=== PATIENT | male | born 1945 | race Caucasian/White ===

== ENCOUNTER 2017-03-01 22:05 | Inpatient (IN) | payer MEDICARE ==
[2017-03-02 01:34] LABS: Appearance,Urine Clear (Clear); Bilirubin,Urine Negative (Negative); Blood,Urine Negative (Negative); Color,Urine Yellow; Glucose,Urine (UA) Negative (Negative); Ketones,Urine 1+ (Negative); Leukocyte Esterase,Urine Negative (Negative); Nitrite,Urine Negative (Negative); PH, Urine 5.5 (5.0-8.0); Protein,Urine Trace (Negative); Specific Gravity,Urine 1.022 (1.001-1.035); Urobilinogen,Urine <2.0 mg/dL (<2.0)
[2017-03-02] MEDS ORDERED: SODIUM CHLORIDE 0.9% 500 ML IV STA (01:54)
[2017-03-02] MEDS ORDERED: HYDROmorphone 1 MG/ML 1 ML SYRINGE IVP STA ×2 (01:54→04:49)
[2017-03-02 02:33] LABS: Basophils % (A) 0 %; Eosinophils # (A) 0.2 k/uL (0-0.7); Eosinophils % (A) 3 %; HCT 37.3 % (39.0-53.0); HGB 12.9 gm/dL (13.0-17.5); Lymphocytes # (A) 0.7 k/uL (1.0-4.8); Lymphocytes % (A) 8 %; MCH 29.9 pg (25.0-35.0); MCHC 34.5 g/dL (31.0-37.0); MCV 86.7 fL (80.0-100.0); Mean Platelet Volume 6.4; Monocytes # (A) 0.4 k/uL (0-1.0); Monocytes % (A) 5 %; Neutrophils # (A) 6.6 k/uL (1.3-7.7); Neutrophils % (A) 82 %; Platelet Count 211 k/uL (150-450); RBC 4.31 m/uL (4.30-5.90); RDW 13.6 % (11.5-15.5); WBC 8.1 k/uL (3.8-10.6)
--- NOTE | 2017-03-02 02:38 | XR ---
EXAMINATION TYPE: XR KUB DATE OF EXAM: 03/02/2017 COMPARISON: NONE HISTORY: Abdominal pain TECHNIQUE: 2 views FINDINGS: There is no sign of intestinal obstruction or pneumoperitoneum. Fecal pattern is normal. Emiliana ng bases are clear of consolidation. There are no pathologic calcifications over the kidneys. IMPRESSION: Nonacute abdomen.
[2017-03-02 02:47] LABS: ALT 46 U/L (21-72); AST 25 U/L (17-59); Albumin 4.3 g/dL (3.5-5.0); Alkaline Phosphatase 96 U/L (38-126); Amylase 60 U/L (30-110); Anion Gap 14 mmol/L; Blood Urea Nitrogen 27 mg/dL (9-20); Calcium 10.3 mg/dL (8.4-10.2); Carbon Dioxide 20 mmol/L (22-30); Chloride 107 mmol/L (98-107); Glucose 135 mg/dL (74-99); Lipase 323 U/L (23-300); Potassium 4.5 mmol/L (3.5-5.1); Sodium 141 mmol/L (137-145); Total Bilirubin 0.6 mg/dL (0.2-1.3); Total Protein 7.4 g/dL (6.3-8.2)
[2017-03-02] MEDS ORDERED: RX INFO: IV CONTRAST WAS GIVEN 1 EACH MISC MISCELLANE PRN (03:01)
--- NOTE | 2017-03-02 03:48 | ED ---
Abdominal Pain HPI - General Chief Complaint: Abdominal Pain Stated Complaint: Abd Pain Time Seen by Provider: 03/02/17 01:38 Source: patient Mode of arrival: ambulatory Limitations: no limitations - History of Present Illness Initial Comments: 71-year-old male patient presents to the emergency department today for evaluation of elevated blood pressure and abdominal pain. Patient states that he began to have abdominal pain couple of days ago. States that it was intermittent initially however this evening became constant. He states that it seems to worsen after he eats certain foods. He denies any nausea or vomiting with this. Denies any constipation or diarrhea. He states that his blood pressure has also been elevated. He does take medication for blood pressure and did take them as directed today. He states that his blood pressure was a little over 200 systolic and over 100 diastolic at home. He denies any headache , weakness, or dizziness. He denies any fevers or chills. Patient denies any recent rash, fever, chills, shortness breath, chest pain, abdominal pain, nausea , vomiting, diarrhea, constipation, back pain, numbness, tingling, dizziness, weakness, hematuria, dysuria, urinary urgency, urinary frequency, headache, visual changes, or any other complaints. - Related Data Home Medications Medication Instructions Recorded Confirmed Acetaminophen Tab [Tylenol Tab] 650 mg PO Q6H PRN 12/17/15 12/19/15 Aspirin [Adult Low Dose Aspirin EC] 81 mg PO DAILY 12/17/15 12/17/15 Enalapril [Vasotec] 20 mg PO BID 12/17/15 12/17/15 Fish Oil/Dha/Epa [Fish Oil 1,200 1 each PO DAILY 12/17/15 12/19/15 mg Fish Oil] Ibuprofen [Motrin] 800 mg PO Q8HR PRN 12/17/15 12/17/15 Labetalol [Trandate] 200 mg PO BID 12/17/15 12/17/15 Pravastatin Sodium [Pravachol] 80 mg PO HS 12/17/15 12/19/15 metFORMIN HCL [Glucophage] 500 mg PO BID 12/17/15 12/19/15 ALPRAZolam [Xanax] 0.25 mg PO DAILY PRN 12/19/15 12/19/15 Latanoprost Ophth [Xalatan 0.005%] 1 drops BOTH EYES HS 12/19/15 12/19/15 Allergies Allergy/AdvReac Type Severity Reaction Status Date / Time No Known Allergies Allergy Verified 03/01/17 22:21 Review of Systems ROS Statement: Those systems with pertinent positive or pertinent negative responses have been documented in the HPI. ROS Other: All systems not noted in ROS Statement are negative. Past Medical History Past Medical History: Diabetes Mellitus, Hypertension, Osteoarthritis (OA), Sleep Apnea/CPAP/BIPAP Additional Past Medical History / Comment(s): USES BI-PAP MACHINE, ARTHRITIS KNEES & HIPS., HEART VALVE REPLACEMENT (2014), STATES HE WAS ON DIALYSIS AFTER HEART VALVE SURGERY. History of Any Multi-Drug Resistant Organisms: None Reported Past Surgical History: Hernia Repair, Orthopedic Surgery Additional Past Surgical History / Comment(s): UMBILICAL HERNIA, TORN MENISCUS, HEART VALVE REPLACEMENT - PIG VALVE (2014), Past Anesthesia/Blood Transfusion Reactions: Previous Problems w/ Anesthesia Additional Past Anesthesia/Blood Transfusion Reaction / Comment(s): HX OF PROBLEMS WITH INTUBATION-STATES THEY TOLD HIM TO INFORM ANESTHESIA WITH ANY SURGERY. Past Psychological History: No Psychological Hx Reported Smoking Status: Former smoker Past Alcohol Use History: Daily Past Drug Use History: None Reported - Past Family History Mother Family Medical History: No Reported History General Exam Limitations: no limitations General appearance: alert, in no apparent distress, other (This is a well- developed, well-nourished adult male patient in no acute distress. Vital signs upon presentation are temperature 99.2F, pulse 75, respirations 18, blood pressure 149/74, pulse ox 97% on room air.) Eye exam: Present: normal appearance, PERRL, EOMI. Absent: scleral icterus, conjunctival injection, periorbital swelling ENT exam: Present: normal exam, normal oropharynx, mucous membranes moist Respiratory exam: Present: normal lung sounds bilaterally. Absent: respiratory distress, wheezes, rales, rhonchi, stridor Cardiovascular Exam: Present: regular rate, normal rhythm, normal heart sounds. Absent: systolic murmur, diastolic murmur, rubs, gallop, clicks GI/Abdominal exam: Present: soft, tenderness (Mid epigastric, and right upper quadrant tenderness), normal bowel sounds. Absent: distended, guarding, rebound , rigid Neurological exam: Present: alert, oriented X3, CN II-XII intact Psychiatric exam: Present: normal affect, normal mood Skin exam: Present: warm, dry, intact, normal color. Absent: rash Course Vital Signs 03/01/17 03/02/17 03/02/17 22:16 02:26 02:54 Temperature 99.2 F Pulse Rate 75 72 64 Respiratory 18 18 18 Rate Blood Pressure 149/74 155/73 167/80 O2 Sat by Pulse 97 96 95 Oximetry 03/02/17 04:13 Temperature Pulse Rate 76 Respiratory 18 Rate Blood Pressure 188/91 O2 Sat by Pulse 95 Oximetry Medical Decision Making - Medical Decision Making 71-year-old male patient presents to the emergency department today for complaints of upper abdominal pain. Patient states that the pain is influenced by certain foods. Physical examination did reveal some midepigastric and right upper quadrant abdominal tenderness. Positive Arriola sign. Labs reviewed and were unremarkable. Urinalysis negative. KUB x-ray of the abdomen was negative. Patient did have some elevated blood pressures today and reported worsening of his abdominal pain today so we did perform CT of the thoracic and abdominal aorta. Vasculature was unremarkable however patient did have some inflammatory changes surrounding his gallbladder. Dr. Cantu was notified and accepts admission. She does request ultrasound prior to patient leaving the emergency department. We will provide pain management and IV fluids. - Lab Data Result diagrams: 03/02/17 02:21 03/02/17 02:21 Lab Results 03/02/17 03/02/17 03/02/17 Range/Units 01:30 02:21 02:21 WBC 8.1 (3.8-10.6) k/uL RBC 4.31 (4.30-5.90) m/uL Hgb 12.9 L (13.0-17.5) gm/dL Hct 37.3 L (39.0-53.0) % MCV 86.7 (80.0-100.0) fL MCH 29.9 (25.0-35.0) pg MCHC 34.5 (31.0-37.0) g/dL RDW 13.6 (11.5-15.5) % Plt Count 211 (150-450) k/uL Neutrophils % 82 % Lymphocytes % 8 % Monocytes % 5 % Eosinophils % 3 % Basophils % 0 % Neutrophils # 6.6 (1.3-7.7) k/uL Lymphocytes # 0.7 L (1.0-4.8) k/uL Monocytes # 0.4 (0-1.0) k/uL Eosinophils # 0.2 (0-0.7) k/uL Basophils # 0.0 (0-0.2) k/uL Sodium 141 (137-145) mmol/L Potassium 4.5 (3.5-5.1) mmol/L Chloride 107 (98-107) mmol/L Carbon Dioxide 20 L (22-30) mmol/L Anion Gap 14 mmol/L BUN 27 H (9-20) mg/dL Creatinine 1.20 (0.66-1.25) mg/dL Est GFR (MDRD) Af Amer >60 (>60 ml/min/1.73 sqM) Est GFR (MDRD) Non-Af >60 (>60 ml/min/1.73 sqM) Glucose 135 H (74-99) mg/dL Calcium 10.3 H (8.4-10.2) mg/dL Total Bilirubin 0.6 (0.2-1.3) mg/dL AST 25 (17-59) U/L ALT 46 (21-72) U/L Alkaline Phosphatase 96 (38-126) U/L Total Protein 7.4 (6.3-8.2) g/dL Albumin 4.3 (3.5-5.0) g/dL Amylase 60 (30-110) U/L Lipase 323 H (23-300) U/L Urine Color Yellow Urine Appearance Clear (Clear) Urine pH 5.5 (5.0-8.0) Ur Specific [place] 1.022 (1.001-1.035) Urine Protein Trace H (Negative) Urine Glucose (UA) Negative (Negative) Urine Ketones 1+ H (Negative) Urine Blood Negative (Negative) Urine Nitrite Negative (Negative) Urine Bilirubin Negative (Negative) Urine Urobilinogen <2.0 (<2.0) mg/dL Ur Leukocyte Esterase Negative (Negative) - Radiology Data Radiology results: report reviewed, image reviewed CT of the thoracic and abdominal aorta are obtained with and without contrast. Report was reviewed in its entirety. Impression by Dr. oK shows no evidence of aortic dissection or aneurysm. Mild mesenteric inflammation adjacent to the gallbladder. Correlate for symptoms suggestive of acute cholecystitis and consider follow-up ultrasound. Nonspecific fadumo mesentery in the mid abdomen, may be related to an inflammatory process such as mesenteric panniculitis. Multiple pulmonary nodules as above. 2 views of the abdomen are obtained and showed no sign of intestinal obstruction or pneumoperitoneum. Fecal pattern is normal. Lung bases are clear consolidation. There are no pathologic calcifications over the kidneys. Impression by Dr. Tyler shows nonacute abdomen. Disposition Clinical Impression: Acute cholecystitis Disposition: ADMITTED IP TO THIS HOSP Condition: Serious Referrals: Abdirashid Santos MD [Primary Care Provider] - 1-2 days Decision to Admit Reason: Admit from EC Decision Date: 03/02/17 Decision Time: 05:02
[2017-03-02] MEDS ORDERED: KETOROLAC 30 MG/ML 1 ML VIAL IVP STA (04:13)
--- NOTE | 2017-03-02 04:27 | CT ---
EXAM: CT Angiography Chest Without and With Intravenous Contrast CT Angiography Abdomen and Pelvis Without and With Intravenous Contrast CLINICAL HISTORY: Reason: Pain TECHNIQUE: Axial computed tomographic angiography images of the chest, abdomen and pelvis without and with intravenous contrast using CT angiography protocol. CTDI is 72 mGy and DLP is 2117.5 mGy-cm. This CT exam was performed using one or more of the following dose reduction techniques: automated exposure control, adjustment of the mA and/or kV according to patient size, and/or use of iterative reconstruction technique. MIP reconstructed images were created and reviewed. COMPARISON: No relevant prior studies available. FINDINGS: VASCULATURE: Aorta: There is atherosclerosis. No acute findings. No aortic aneurysm. No dissection. Pulmonary arteries: Unremarkable as visualized. No pulmonary embolism is identified. Great vessels of aortic arch: No acute findings. No dissection. No arterial occlusion or significant stenosis. Celiac trunk and mesenteric arteries: No acute findings. No occlusion or significant stenosis. Renal arteries: No acute findings. No occlusion or significant stenosis. Iliac arteries: No acute findings. No occlusion or significant stenosis. CHEST: Lungs: Atelectasis and/or parenchymal scarring in the lower lobes bilaterally. 7 mm subpleural nodule in the left upper lobe. (Series 5, image 35). 6 mm subpleural pulmonary nodule in the right middle lobe. (Series 5, image 31) Pleural space: Unremarkable. No significant effusion. No pneumothorax. Heart: Aortic valve replacement. No significant pericardial effusion. ABDOMEN: Liver: Fatty infiltration of the liver with focal sparing near the gallbladder fossa. Subcentimeter hypodensity in the peripheral right hepatic lobe is too small to characterize. Gallbladder and bile ducts: Mild mesenteric inflammatory changes adjacent to the gallbladder. No calcified stones. No ductal dilation. Pancreas: Unremarkable. No ductal dilation. No mass. Spleen: Unremarkable. No splenomegaly. Adrenals: Unremarkable. No mass. Kidneys and ureters: Bilateral simple renal cysts. Largest is off the superior pole of the left kidney measuring 6.3 cm. No obstructing stones. Stomach and bowel: Unremarkable. No obstruction. No mucosal thickening. Appendix: No findings to suggest acute appendicitis. PELVIS: Bladder: Unremarkable. No stones. No mass. Reproductive: Unremarkable as visualized. CHEST, ABDOMEN and PELVIS: Intraperitoneal space: Unremarkable. No significant fluid collection. No free air. Bones/joints: No acute fracture. No dislocation. Soft tissues: Unremarkable. Lymph nodes: Nonspecific fadumo mesentery with multiple subcentimeter mesenteric lymph nodes IMPRESSION: No evidence of aortic dissection or aneurysm. Mild mesenteric inflammation adjacent to the gallbladder. Correlate for symptoms suggestive of acute cholecystitis and consider follow-up ultrasound. Nonspecific fadumo mesentery in the midabdomen, may be related to an inflammatory process such as mesenteric panniculitis. Multiple pulmonary nodules as above. For low-risk patients recommend follow-up chest CT at 3-6 months. If unchanged consider an additional follow-up CT at 18-24 months. For high-risk patients (smoking history or other known risk factors) initial follow-up chest CT at 3-6 months and if unchanged, 18-24 months.
[2017-03-02] MEDS ORDERED: NALOXONE 0.4 MG/ML 1 ML VIAL IV PRN (04:56)
[2017-03-02] MEDS ORDERED: ONDANSETRON 4 MG/2 ML VIAL IVP PRN (04:56)
[2017-03-02] MEDS: SODIUM CHLORIDE 0.9% 1,000 ML IV SCH ×2 (05:14→08:45)
[2017-03-02] MEDS ORDERED: ENALAPRILAT 1.25 MG/ML 1 ML VIAL IVP STA (05:23)
[2017-03-02 05:56] LABS: Glucose,Whole Blood 129 mg/dL (75-99)
--- NOTE | 2017-03-02 07:57 | US ---
EXAMINATION TYPE: US abdomen limited DATE OF EXAM: 03/02/2017 COMPARISON: NONE CLINICAL HISTORY: Pain. EXAM MEASUREMENTS: Liver Length: 22.5 cm Gallbladder Wall: 1.1 cm CBD: 0.7 cm Right Kidney: 10.3 x 4.7 x 5.5 cm Obese patient with very large abdomen Pancreas: not well visualized, portions visualized appear wnl Liver: Increased attenuation, decreased visualization of vessels suggestive of fatty infiltrate, hep atomegaly, cyst measuring 1.3 x 1.1 x 1.3cm Gallbladder: cholelithiasis. With significant wall thickening, unable to well see neck due to shadow ing stones Evidence for sonographic Arriola's sign: no CBD: dilated Right Kidney: wnl IMPRESSION: 1. Cholelithiasis with dilation of the common bile duct measuring 0.7 cm. Distal CBD stone or obstruc tion not excluded 2. Gallbladder wall thickening correlate for cholecystitis. 3. Correlate for fatty infiltration versus
[2017-03-02 08:14] LABS: Glucose,Whole Blood 132 mg/dL (75-99)
[2017-03-02] MEDS: HYDROmorphone 2 MG/ML 1 ML SYRINGE IVP PRN (09:21)
[2017-03-02 12:20] LABS: Glucose,Whole Blood 127 mg/dL (75-99)
[2017-03-02] MEDS: INSULIN ASPART 100 UNIT/ML 1 ML 10 ML VIAL SQ SCH ×3 (12:30→21:27)
[2017-03-02] MEDS ORDERED: ALPRAZolam 0.25 MG TAB PO PRN (15:10)
--- NOTE | 2017-03-02 15:11 | P.GSHP ---
History of Present Illness H&P Date: 03/02/17 71-year-old male presented to the emergency room with a chief complaint of abdominal pain right upper quadrant with nausea. Patient stated that the abdominal pain started several days ago. Over the last day it became more constant. He stated that it seemed to get worse after eating certain food. He denied change in bowel habits. Is also noted in the emergency room the patient' s blood pressure was elevated. Patient states he has been compliant with taking his blood pressure medication. Denied any fever chills. Denied change in bowel habits. Denied chest pain or shortness of breath in the emergency room CAT scan of the abdomen did show gallbladder wall thickening with gallstones correlate for cholecystitis. Patient does give a history of having an aortic valve replacement done 2 years prior at [facility] denying chest pain dizziness lightheadedness fever or chills - Review of Systems Comment: Essentially unremarkable except as mentioned in the present illness Past Medical History Past Medical History: Diabetes Mellitus, Eye Disorder, Hyperlipidemia, Hypertension, Osteoarthritis (OA), Sleep Apnea/CPAP/BIPAP Additional Past Medical History / Comment(s): NIDDM type II, glaucoma bilateral eyes, NISH with bipap, arthritis bilateral hips/knees. History of Any Multi-Drug Resistant Organisms: None Reported Past Surgical History: Coronary Bypass/CABG, Heart Catheterization, Hernia Repair, Orthopedic Surgery Additional Past Surgical History / Comment(s): 2014 Aortic valve replacement, colonoscopies/benign polypectomy, bilateral cataract removals with lens, circumcism, umbilical hernia repair, r knee arthroscopy. Past Anesthesia/Blood Transfusion Reactions: Previous Problems w/ Anesthesia Additional Past Anesthesia/Blood Transfusion Reaction / Comment(s): HX OF PROBLEMS WITH INTUBATION-STATES THEY TOLD HIM TO INFORM ANESTHESIA WITH ANY SURGERY. Smoking Status: Former smoker - Past Family History Mother Family Medical History: No Reported History Additional Family Medical History / Comment(s): Mother had heart disease and back problems. Father Family Medical History: Diabetes Mellitus Medications and Allergies Home Medications Medication Instructions Recorded Confirmed Type Aspirin [Adult Low Dose Aspirin EC] 81 mg PO DAILY 12/17/15 03/02/17 History Enalapril [Vasotec] 20 mg PO BID 12/17/15 03/02/17 History Fish Oil/Dha/Epa [Fish Oil 1,200 1 cap PO DAILY 12/17/15 03/02/17 History mg Fish Oil] Ibuprofen [Motrin] 800 mg PO Q8HR PRN 12/17/15 03/02/17 History Labetalol [Trandate] 200 mg PO BID 12/17/15 03/02/17 History Pravastatin Sodium [Pravachol] 80 mg PO HS 12/17/15 03/02/17 History metFORMIN HCL [Glucophage] 500 mg PO BID 12/17/15 03/02/17 History ALPRAZolam [Xanax] 0.25 mg PO HS PRN 12/19/15 03/02/17 History Latanoprost Ophth [Xalatan 0.005%] 1 drops BOTH EYES HS 12/19/15 03/02/17 History sitaGLIPtin [Januvia] 100 mg PO DAILY 03/02/17 03/02/17 History Allergies Allergy/AdvReac Type Severity Reaction Status Date / Time No Known Allergies Allergy Verified 03/02/17 08:02 Surgical - Exam Vital Signs Temp Pulse Resp BP Pulse Ox 99.2 F 75 18 149/74 97 03/01/17 22:16 03/01/17 22:16 03/01/17 22:16 03/01/17 22:16 03/01/17 22:16 GENERAL APPEARANCE: 71-year-old male patient is alert, oriented, in no acute distress reports having right upper quadrant abdominal pain. VITAL SIGNS: Reviewed HEENT: Head is normocephalic and atraumatic. Pupils are equal and reactive. The nares are patent. Oropharynx is clear without lesions. NECK: Supple without lymphadenopathy. Traches midline. HEART: S1, S2. Regular rate and rhythm. No murmur noted LUNGS: No crackles or wheezes are heard. Good air movement bilaterally ABDOMEN: Soft, obese tenderness to the right upper quadrant, nondistended with good bowel sounds. No peritoneal signs. No palpable organomegaly or masses. EXTREMITIES: Normal skin color and turgor. No cyanosis, rash, ulceration, clubbing or edema. Radial pedal pulses are 2/4 bilaterally. NEUROLOGICAL: No focal deficits. Strength and sensation are grossly intact. Results - Labs 03/02/17 02:21 03/02/17 02:21 Abnormal Lab Results - Last 24 Hours (Table) 03/02/17 03/02/17 03/02/17 Range/Units 01:30 02:21 02:21 Hgb 12.9 L (13.0-17.5) gm/dL Hct 37.3 L (39.0-53.0) % Lymphocytes # 0.7 L (1.0-4.8) k/uL Carbon Dioxide 20 L (22-30) mmol/L BUN 27 H (9-20) mg/dL Glucose 135 H (74-99) mg/dL POC Glucose (mg/dL) (75-99) mg/dL Calcium 10.3 H (8.4-10.2) mg/dL Lipase 323 H (23-300) U/L Urine Protein Trace H (Negative) Urine Ketones 1+ H (Negative) 03/02/17 03/02/17 03/02/17 Range/Units 05:52 07:59 12:05 Hgb (13.0-17.5) gm/dL Hct (39.0-53.0) % Lymphocytes # (1.0-4.8) k/uL Carbon Dioxide (22-30) mmol/L BUN (9-20) mg/dL Glucose (74-99) mg/dL POC Glucose (mg/dL) 129 H 132 H 127 H (75-99) mg/dL Calcium (8.4-10.2) mg/dL Lipase (23-300) U/L Urine Protein (Negative) Urine Ketones (Negative) Diabetes panel 03/02/17 Range/Units 02:21 Sodium 141 (137-145) mmol/L Potassium 4.5 (3.5-5.1) mmol/L Chloride 107 (98-107) mmol/L Carbon Dioxide 20 L (22-30) mmol/L BUN 27 H (9-20) mg/dL Creatinine 1.20 (0.66-1.25) mg/dL Glucose 135 H (74-99) mg/dL Calcium 10.3 H (8.4-10.2) mg/dL AST 25 (17-59) U/L ALT 46 (21-72) U/L Alkaline Phosphatase 96 (38-126) U/L Total Protein 7.4 (6.3-8.2) g/dL Albumin 4.3 (3.5-5.0) g/dL Calcium panel 03/02/17 Range/Units 02:21 Calcium 10.3 H (8.4-10.2) mg/dL Albumin 4.3 (3.5-5.0) g/dL Pituitary panel 03/02/17 Range/Units 02:21 Sodium 141 (137-145) mmol/L Potassium 4.5 (3.5-5.1) mmol/L Chloride 107 (98-107) mmol/L Carbon Dioxide 20 L (22-30) mmol/L BUN 27 H (9-20) mg/dL Creatinine 1.20 (0.66-1.25) mg/dL Glucose 135 H (74-99) mg/dL Calcium 10.3 H (8.4-10.2) mg/dL Adrenal panel 03/02/17 Range/Units 02:21 Sodium 141 (137-145) mmol/L Potassium 4.5 (3.5-5.1) mmol/L Chloride 107 (98-107) mmol/L Carbon Dioxide 20 L (22-30) mmol/L BUN 27 H (9-20) mg/dL Creatinine 1.20 (0.66-1.25) mg/dL Glucose 135 H (74-99) mg/dL Calcium 10.3 H (8.4-10.2) mg/dL Total Bilirubin 0.6 (0.2-1.3) mg/dL AST 25 (17-59) U/L ALT 46 (21-72) U/L Alkaline Phosphatase 96 (38-126) U/L Total Protein 7.4 (6.3-8.2) g/dL Albumin 4.3 (3.5-5.0) g/dL Assessment and Plan Assessment: Impression Present on admission right upper quadrant pain suspect due to acute cholecystitis Ultrasound of the abdomen gallbladder wall thickening correlate for cholecystitis with gallstones morbid obesity BMI 39 history of an aortic valve replacement 2 years prior obstructive sleep apnea with CPAP therapy Present on admission accelerated hypertension Plan Increase IV fluid 225 an hour Scheduled for a lap cholecystectomy in the morning Repeat labs Pain control Have patient use incentive spirometer every 1 hour while awake Hold aspirin NPO after midnight DVT and GI prophylaxis Further recommendations pending The above impression and plan of care have been discussed and directed by signing physician. Carla Mcginnis nurse practitioner acting as scribe for signing physician.
[2017-03-02] MEDS: AMPICILLIN-SULBACTAM 3 GM in SODIUM CHLORIDE 0.9% 100 ML IVPB SCH (16:08)
[2017-03-02] MEDS: PANTOPRAZOLE 40 MG/10 ML VIAL IVP SCH (16:08)
[2017-03-02] MEDS: HEPARIN SODIUM,PORCINE 5,000 UNIT/ML 1 ML VIAL SQ SCH (16:08)
[2017-03-02 17:22] LABS: Glucose,Whole Blood 208 mg/dL (75-99)
[2017-03-02 21:14] LABS: Glucose,Whole Blood 119 mg/dL (75-99)
[2017-03-02] MEDS: LISINOPRIL 20 MG TAB PO SCH (21:28)
[2017-03-02] MEDS: LATANOPROST 0.005% OPHTH DROPS 2.5 ML BTL BOTH EYES SCH (21:28)
[2017-03-02] MEDS: LABETALOL 200 MG TAB PO SCH (21:29)
[2017-03-03] MEDS: AMPICILLIN-SULBACTAM 3 GM in SODIUM CHLORIDE 0.9% 100 ML IVPB SCH ×4 (00:54→23:42)
[2017-03-03] MEDS: HEPARIN SODIUM,PORCINE 5,000 UNIT/ML 1 ML VIAL SQ SCH ×5 (00:55→23:41)
[2017-03-03] MEDS: SODIUM CHLORIDE 0.9% 1,000 ML IV SCH ×4 (04:10→21:26)
[2017-03-03 07:19] LABS: Glucose,Whole Blood 164 mg/dL (75-99)
[2017-03-03 08:04] LABS: Basophils % (A) 0 %; Eosinophils # (A) 0.2 k/uL (0-0.7); Eosinophils % (A) 2 %; HCT 34.8 % (39.0-53.0); HGB 11.8 gm/dL (13.0-17.5); Lymphocytes # (A) 0.6 k/uL (1.0-4.8); Lymphocytes % (A) 6 %; MCH 29.3 pg (25.0-35.0); MCHC 34.1 g/dL (31.0-37.0); MCV 86.2 fL (80.0-100.0); Mean Platelet Volume 7.1; Monocytes # (A) 0.5 k/uL (0-1.0); Monocytes % (A) 6 %; Neutrophils # (A) 7.5 k/uL (1.3-7.7); Neutrophils % (A) 84 %; Platelet Count 179 k/uL (150-450); RBC 4.03 m/uL (4.30-5.90); RDW 14.6 % (11.5-15.5)
[2017-03-03] MEDS: PANTOPRAZOLE 40 MG/10 ML VIAL IVP SCH (08:24)
[2017-03-03] MEDS: INSULIN ASPART 100 UNIT/ML 1 ML 10 ML VIAL SQ SCH ×4 (08:24→21:25)
[2017-03-03] MEDS: LINAGLIPTIN 5 MG TABLET PO SCH (08:24)
[2017-03-03] MEDS: LABETALOL 200 MG TAB PO SCH ×2 (08:24→21:25)
[2017-03-03] MEDS: LISINOPRIL 20 MG TAB PO SCH ×2 (08:24→21:25)
[2017-03-03 08:37] LABS: ALT 48 U/L (21-72); AST 41 U/L (17-59); Albumin 3.6 g/dL (3.5-5.0); Alkaline Phosphatase 82 U/L (38-126); Anion Gap 11 mmol/L; Blood Urea Nitrogen 13 mg/dL (9-20); Calcium 9.2 mg/dL (8.4-10.2); Carbon Dioxide 23 mmol/L (22-30); Chloride 105 mmol/L (98-107); Glucose 140 mg/dL (74-99); Sodium 139 mmol/L (137-145); Total Bilirubin 1.3 mg/dL (0.2-1.3); Total Protein 6.4 g/dL (6.3-8.2)
--- NOTE | 2017-03-03 09:16 | P.PN ---
<Carla Mcginnis - Last Filed: 03/03/17 09:12> Subjective Progress Note Date: 03/03/17 71-year-old male seen and examined sitting up on the edge of the bed aware of the plan of care patient is scheduled today for a lap cholecystectomy possible open by surgical service patient states the abdominal pain has resolved "but I have not eaten seem like whenever I tried to eat something I would get pain in the right upper quadrant family at bedside Objective - Vital Signs Vital signs: Vital Signs Temp 100.6 F H 03/03/17 07:00 Pulse 84 03/03/17 07:00 Resp 18 03/03/17 07:00 BP 131/66 03/03/17 07:00 Pulse Ox 92 L 03/03/17 07:00 Intake & Output 03/02/17 03/03/17 03/03/17 18:59 06:59 18:59 Output Total 800 Balance -800 Weight 99.804 kg Output: Urine 800 Other: # Voids 1 2 - Exam physical exam 71-year-old male sitting up on the edge of the bed pleasant cooperative Lungs adequate air movement bilaterally Heart S1-S2 audible regular Abdomen obese soft reports having tenderness to the right upper quadrant bowel tones present denies nausea vomiting Extremities no edema - Labs CBC & Chem 7: 03/03/17 07:34 03/03/17 07:34 Labs: Abnormal Lab Results - Last 24 Hours (Table) 03/02/17 03/02/17 03/02/17 Range/Units 12:05 17:19 21:11 RBC (4.30-5.90) m/uL Hgb (13.0-17.5) gm/dL Hct (39.0-53.0) % Lymphocytes # (1.0-4.8) k/uL Glucose (74-99) mg/dL POC Glucose (mg/dL) 127 H 208 H 119 H (75-99) mg/dL 03/03/17 03/03/17 03/03/17 Range/Units 07:14 07:34 07:34 RBC 4.03 L (4.30-5.90) m/uL Hgb 11.8 L (13.0-17.5) gm/dL Hct 34.8 L (39.0-53.0) % Lymphocytes # 0.6 L (1.0-4.8) k/uL Glucose 140 H (74-99) mg/dL POC Glucose (mg/dL) 164 H (75-99) mg/dL Assessment and Plan Assessment: Impression Present on admission right upper quadrant pain suspect due to acute cholecystitis Ultrasound of the abdomen gallbladder wall thickening correlate for cholecystitis with gallstones morbid obesity BMI 39 history of an aortic valve replacement 2 years prior obstructive sleep apnea with CPAP therapy Present on admission accelerated hypertension Plan Increase IV fluid 125 an hour Scheduled for a lap cholecystectomy today Repeat labs Pain control Have patient use incentive spirometer every 1 hour while awake Hold aspirin DVT and GI prophylaxis Further recommendations pending The above impression and plan of care have been discussed and directed by signing physician. Carla Mcginnis nurse practitioner acting as scribe for signing physician. <Brittany Cantu - Last Filed: 03/03/17 11:40> Objective - Vital Signs Vital signs: Vital Signs Temp 98.0 F 03/03/17 10:16 Pulse 80 03/03/17 10:47 Resp 18 03/03/17 10:16 BP 115/47 03/03/17 10:16 Pulse Ox 98 03/03/17 10:16 Intake & Output 03/02/17 03/03/17 03/03/17 18:59 06:59 18:59 Intake Total 300 Output Total 800 Balance -800 300 Weight 99.804 kg Intake: IV 300 Output: Urine 800 Other: # Voids 1 2 - Labs CBC & Chem 7: 03/03/17 07:34 03/03/17 07:34 Labs: Abnormal Lab Results - Last 24 Hours (Table) 03/02/17 03/02/17 03/02/17 Range/Units 12:05 17:19 21:11 RBC (4.30-5.90) m/uL Hgb (13.0-17.5) gm/dL Hct (39.0-53.0) % Lymphocytes # (1.0-4.8) k/uL Glucose (74-99) mg/dL POC Glucose (mg/dL) 127 H 208 H 119 H (75-99) mg/dL 03/03/17 03/03/17 03/03/17 Range/Units 07:14 07:34 07:34 RBC 4.03 L (4.30-5.90) m/uL Hgb 11.8 L (13.0-17.5) gm/dL Hct 34.8 L (39.0-53.0) % Lymphocytes # 0.6 L (1.0-4.8) k/uL Glucose 140 H (74-99) mg/dL POC Glucose (mg/dL) 164 H (75-99) mg/dL Assessment and Plan Plan: Lap priyanka possible open. Patient examined in preop. All questions answered.
[2017-03-03] MEDS ORDERED: IV FLUID CONTINUATION 1,000 ML IV ONE (10:15)
[2017-03-03] MEDS ORDERED: ONDANSETRON 4 MG/2 ML VIAL IVP ONE (10:24)
[2017-03-03] MEDS ORDERED: LIDOCAINE 4% (PF) 5 ML AMP IH STA (10:29)
[2017-03-03] MEDS ORDERED: ePHEDrine SULFATE/0.9% NACL/PF 50 MG/5 ML SYRINGE IV ONE (11:13)
[2017-03-03] MEDS ORDERED: LIDOCAINE 1% INJ 10MG/ML (20 ML MDV) ONE (11:13)
[2017-03-03] MEDS ORDERED: GLYCOPYRROLATE 0.2 MG/ML 2 ML VIAL ONE (11:13)
[2017-03-03] MEDS ORDERED: PROPOFOL 10 MG/ML 20 ML VIAL IV ONE (11:13)
[2017-03-03] MEDS ORDERED: KETAMINE 10 MG/ML 20 ML VIAL ONE (11:13)
[2017-03-03] MEDS ORDERED: PHENYLEPHRINE-0.9% NACL SYG 1 MG/10 ML SYRINGE ONE (11:13)
[2017-03-03] MEDS ORDERED: ROCURONIUM BROMIDE 10 MG/ML 10 ML VIAL IV ONE (11:13)
[2017-03-03] MEDS ORDERED: fentaNYL (PF) 50 MCG/ML 2 ML AMP ONE (11:13)
[2017-03-03] MEDS ORDERED: MIDAZOLAM 2 MG/2 ML VIAL ONE (11:13)
[2017-03-03] MEDS ORDERED: NEOSTIGMINE 1 MG/ML 10 ML VIAL ONE (11:13)
[2017-03-03] MEDS ORDERED: BUPIVACAINE-EPI 0.5%-1:200,000 10 ML VIAL SQ ONE (11:57)
[2017-03-03] MEDS ORDERED: LACTATED RINGERS 1,000 ML IV ONE (12:22)
[2017-03-03 13:37] LABS: Glucose,Whole Blood 168 mg/dL (75-99)
[2017-03-03] MEDS ORDERED: HYDROmorphone 1 MG/ML 1 ML SYRINGE IVP ONE ×2 (14:07→14:19)
--- NOTE | 2017-03-03 14:13 | P.OP ---
Date of Procedure: 03/03/17 Preoperative Diagnosis: Acute on chronic calculus cholecystitis Type 2 diabetes mellitus Obesity BMI 39 Hypertension Obstructive sleep apnea History of aortic valve replacement Postoperative Diagnosis: Same Procedure(s) Performed: Laparoscopic cholecystectomy Anesthesia: PATTI Surgeon: Brittany Cantu Estimated Blood Loss (ml): 50 IV fluids (ml): 1,400 Urine output (ml): 200 Pathology: other Condition: other (ASA 3) Disposition: PACU Indications for Procedure: 71 years old male presented with right upper quadrant pain. Computed tomography scan and ultrasound showed gallstones and gallbladder wall thickening suggestive of acute cholecystitis. Patient does not have leukocytosis at presentation. Informed consent obtained and patient elected to undergo laparoscopic cholecystectomy possible open. The risks, benefits and potential complications including bleeding, infection, inadvertent bile duct injury and possibility of converting to open were discussed with the patient. Operative Findings: The gallbladder was wrapped up in omentum. It was thickened and had acute and chronic calculus cholecystitis Description of Procedure: The patient was brought to the operating room and placed in supine position with both arms out. General anesthesia with endotracheal intubation was performed as per anesthesia team. Chlorhexidine was used to prep the abdomen followed by application of sterile drapes. A timeout was performed to verify correct patient and correct procedure. Patient was confirmed to receive perioperative IV antibiotics , heparin 5000 units subcutaneous injection and bilateral SCDs were placed. A 5 mm skin incision was made below the left costal margin at the anterior axillary line. A Veress needle was inserted and pneumoperitoneum was established to a pressure of 15 mmHg. A 5 mm Optiview trocar was loaded on a 5 mm 30 laparoscope and the peritoneal cavity was entered under direct vision using the Optiview technique. Additional 5 mm trocar was placed in the supraumbilical location and two 5 mm trocars along the right subcostal margin. The left 5 mm trocar was upsized to 12mm. The patient was placed in reverse Trendelenburg with right side up. Additional 5 mm trocar was placed in the left upper quadrant. The gallbladder was wrapped up in omentum. This was gently peeled off using suction irrigation device. Gallbladder was distended and aspirated using the aspiration needle. It was thickened, inflamed edematous The fundus of the gallbladder was grasped with an atraumatic grasper and was retracted over the dome of the liver. The infundibulum was grasped with an atraumatic grasper and retracted towards the pelvis to expose the Calot's triangle. Lateral and medial peritoneal attachment of the gallbladder bladder was dissected. Circumferential dissection was carried out around the cystic artery and the cystic duct to obtain adequate length for clip application. All the surrounding fibrofatty tissue were removed. Critical view was obtained with cystic duct and cystic artery as the only two structures entering the gallbladder. Two clips were applied on the patient's side and one on the specimen side on the cystic duct first followed by the cystic artery. Endoshears were used to divide the cystic duct and the cystic artery. The gallbladder was taken off the liver bed using a L-hook. It was placed in an endocatch specimen bag and removed through the 12mm port. The gallbladder was passed off as a specimen. MARIA DOLORES drain was left in the right along subhepatic fossa. The abdominal cavity was inspected. The clips on the cystic duct and cystic artery stump were intact and no bleeding noted from the liver bed. All the trocar sites were examined and no evidence of bleeding. The 10mm port site was closed with two transfascial sutures of 0 Vicryl using a Bird Yasmany device. The pneumoperitoneum was evacuated and all the trocars were removed. Local anesthetic was infiltrated along the trocar sites and incisions were closed using 4-0 Monocryl followed by application of Dermabond skin glue. The sponge, instrument and needle count were correct x2. Patient was extubated and taken to post anesthesia care unit in stable condition.
[2017-03-03 15:46] VITALS: BMI 38.9
[2017-03-03 17:15] LABS: Glucose,Whole Blood 138 mg/dL (75-99)
[2017-03-03] MEDS: HYDROmorphone 2 MG/ML 1 ML SYRINGE IVP PRN (17:31)
[2017-03-03 19:44] LABS: Hemoglobin A1C 6.3 % (4.0-6.0)
[2017-03-03 21:01] LABS: Glucose,Whole Blood 123 mg/dL (75-99)
[2017-03-03] MEDS: LATANOPROST 0.005% OPHTH DROPS 2.5 ML BTL BOTH EYES SCH (21:25)
[2017-03-03] MEDS: DOCUSATE 100 MG CAP PO SCH (21:25)
[2017-03-04] MEDS: HYDROmorphone 2 MG/ML 1 ML SYRINGE IVP PRN (04:01)
[2017-03-04] MEDS: SODIUM CHLORIDE 0.9% 1,000 ML IV SCH ×3 (04:07→22:55)
[2017-03-04] MEDS ORDERED: ACETAMINOPHEN TAB 325 MG TAB PO STA (07:42)
[2017-03-04 07:57] LABS: Glucose,Whole Blood 144 mg/dL (75-99)
[2017-03-04] MEDS: HEPARIN SODIUM,PORCINE 5,000 UNIT/ML 1 ML VIAL SQ SCH ×3 (08:00→22:56)
[2017-03-04] MEDS: PANTOPRAZOLE 40 MG/10 ML VIAL IVP SCH (08:00)
[2017-03-04] MEDS: LISINOPRIL 20 MG TAB PO SCH ×2 (08:00→21:37)
[2017-03-04] MEDS: LINAGLIPTIN 5 MG TABLET PO SCH (08:00)
[2017-03-04] MEDS: LABETALOL 200 MG TAB PO SCH ×2 (08:00→21:36)
[2017-03-04] MEDS: DOCUSATE 100 MG CAP PO SCH ×2 (08:00→21:36)
[2017-03-04] MEDS: INSULIN ASPART 100 UNIT/ML 1 ML 10 ML VIAL SQ SCH ×4 (08:01→22:56)
[2017-03-04] MEDS: AMPICILLIN-SULBACTAM 3 GM in SODIUM CHLORIDE 0.9% 100 ML IVPB SCH ×3 (08:01→21:35)
[2017-03-04] MEDS: HYDROcodone/APAP 5-325MG 1 EACH TAB PO PRN ×4 (08:24→21:38)
[2017-03-04 09:11] LABS: Basophils % (A) 0 %; Eosinophils # (A) 0.2 k/uL (0-0.7); Eosinophils % (A) 3 %; HCT 32.3 % (39.0-53.0); HGB 10.7 gm/dL (13.0-17.5); Lymphocytes # (A) 0.6 k/uL (1.0-4.8); Lymphocytes % (A) 9 %; MCH 29.3 pg (25.0-35.0); MCHC 33.1 g/dL (31.0-37.0); MCV 88.6 fL (80.0-100.0); Mean Platelet Volume 6.9; Monocytes # (A) 0.4 k/uL (0-1.0); Monocytes % (A) 6 %; Neutrophils # (A) 5.2 k/uL (1.3-7.7); Neutrophils % (A) 80 %; Platelet Count 187 k/uL (150-450); RBC 3.64 m/uL (4.30-5.90); RDW 13.5 % (11.5-15.5); WBC 6.5 k/uL (3.8-10.6)
--- NOTE | 2017-03-04 09:37 | P.PN ---
<Carla Mcginnis - Last Filed: 03/04/17 09:32> Subjective Progress Note Date: 03/04/17 71-year-old male seen and examined sitting up on the edge of the bed taking a clear liquid diet reports no nausea vomiting. Did note the temp is 101.1 this morning with a white count of 6.5. Patient had an episode of urinary retention at 4 AM needed to be straight cathed. Patient states after his other prior surgeries has developed urinary retention in the past. Surgical sites dry.. Patient is postop March 03 upper scopic cholecystectomy for right upper quadrant pain acute on chronic calculus cholecystitis Objective - Vital Signs Vital signs: Vital Signs Temp 101.1 F H 03/04/17 07:00 Pulse 68 03/04/17 07:00 Resp 20 03/04/17 07:00 BP 131/59 03/04/17 07:00 Pulse Ox 90 L 03/04/17 07:00 Intake & Output 03/03/17 03/04/17 03/04/17 18:59 06:59 18:59 Intake Total 1850 Output Total 310 500 Balance 1540 -500 Weight 99.804 kg Intake: IV 1850 Output: Drainage 60 50 Right 60 50 Urine 200 450 Estimated Blood Loss 50 Other: # Voids 0 - Exam physical exam 71-year-old male sitting up on the edge of the bed pleasant cooperative taking clear liquid diet Lungs adequate air movement bilaterally on room air sats are 93% Heart S1-S2 audible regular denying chest pain Abdomen obese slightly distended surgical tenderness appropriate surgical dressings to surgical site dry MARIA DOLORES drain in place serous drainage noted bowel tones present denies nausea vomitingNo stool Extremities no edema - Labs CBC & Chem 7: 03/04/17 08:41 03/03/17 07:34 Labs: Abnormal Lab Results - Last 24 Hours (Table) 03/03/17 03/03/17 03/03/17 Range/Units 07:34 13:33 17:12 RBC (4.30-5.90) m/uL Hgb (13.0-17.5) gm/dL Hct (39.0-53.0) % Lymphocytes # (1.0-4.8) k/uL POC Glucose (mg/dL) 168 H 138 H (75-99) mg/dL Hemoglobin A1c 6.3 H (4.0-6.0) % 03/03/17 03/04/17 03/04/17 Range/Units 20:59 07:54 08:41 RBC 3.64 L (4.30-5.90) m/uL Hgb 10.7 L (13.0-17.5) gm/dL Hct 32.3 L (39.0-53.0) % Lymphocytes # 0.6 L (1.0-4.8) k/uL POC Glucose (mg/dL) 123 H 144 H (75-99) mg/dL Hemoglobin A1c (4.0-6.0) % Assessment and Plan Assessment: Impression Present on admission right upper quadrant pain suspect due to acute cholecystitis Ultrasound of the abdomen gallbladder wall thickening correlate for cholecystitis with gallstones morbid obesity BMI 39 history of an aortic valve replacement 2 years prior obstructive sleep apnea with CPAP therapy Present on admission accelerated hypertension March 03 laparoscopic cholecystectomy for acute on chronic calculus cholecystitis Postop febrile Postop urinary retention Acute on chronic calculus cholecystitis Plan Increase activity Blood cultures now follow up on results Continue Unasyn as ordered Repeat labs Pain control use incentive spirometer every 1 hour while awake DVT and GI prophylaxis Further recommendations pending The above impression and plan of care have been discussed and directed by signing physician. Carla Mcginnis nurse practitioner acting as scribe for signing physician. <Brittany Cantu - Last Filed: 03/04/17 14:15> Objective - Vital Signs Vital signs: Vital Signs Temp 98.9 F 03/04/17 09:15 Pulse 68 03/04/17 07:00 Resp 18 03/04/17 08:00 BP 131/59 03/04/17 07:00 Pulse Ox 90 L 03/04/17 07:00 Intake & Output 03/03/17 03/04/17 03/04/17 18:59 06:59 18:59 Intake Total 1850 Output Total 310 500 30 Balance 1540 -500 -30 Weight 99.804 kg Intake: IV 1850 Output: Drainage 60 50 30 Right 60 50 30 Urine 200 450 Estimated Blood Loss 50 Other: # Voids 0 - Labs CBC & Chem 7: 03/04/17 08:41 03/04/17 08:41 Labs: Abnormal Lab Results - Last 24 Hours (Table) 01/10/18 01/10/18 01/10/18 Range/Units 07:34 17:12 20:59 RBC (4.30-5.90) m/uL Hgb (13.0-17.5) gm/dL Hct (39.0-53.0) % Lymphocytes # (1.0-4.8) k/uL Glucose (74-99) mg/dL POC Glucose (mg/dL) 138 H 123 H (75-99) mg/dL Hemoglobin A1c 6.3 H (4.0-6.0) % Calcium (8.4-10.2) mg/dL AST (17-59) U/L ALT (21-72) U/L Total Protein (6.3-8.2) g/dL Albumin (3.5-5.0) g/dL Urine Protein (Negative) Urine Glucose (UA) (Negative) Urine Blood (Negative) Ur Leukocyte Esterase (Negative) Urine RBC (0-5) /hpf Urine WBC (0-5) /hpf Urine Mucus (None) /hpf 03/04/17 03/04/17 03/04/17 Range/Units 07:54 08:41 08:41 RBC 3.64 L (4.30-5.90) m/uL Hgb 10.7 L (13.0-17.5) gm/dL Hct 32.3 L (39.0-53.0) % Lymphocytes # 0.6 L (1.0-4.8) k/uL Glucose 172 H (74-99) mg/dL POC Glucose (mg/dL) 144 H (75-99) mg/dL Hemoglobin A1c (4.0-6.0) % Calcium 8.3 L (8.4-10.2) mg/dL AST 82 H (17-59) U/L ALT 91 H (21-72) U/L Total Protein 5.9 L (6.3-8.2) g/dL Albumin 3.3 L (3.5-5.0) g/dL Urine Protein (Negative) Urine Glucose (UA) (Negative) Urine Blood (Negative) Ur Leukocyte Esterase (Negative) Urine RBC (0-5) /hpf Urine WBC (0-5) /hpf Urine Mucus (None) /hpf 03/04/17 03/04/17 Range/Units 12:10 12:43 RBC (4.30-5.90) m/uL Hgb (13.0-17.5) gm/dL Hct (39.0-53.0) % Lymphocytes # (1.0-4.8) k/uL Glucose (74-99) mg/dL POC Glucose (mg/dL) 147 H (75-99) mg/dL Hemoglobin A1c (4.0-6.0) % Calcium (8.4-10.2) mg/dL AST (17-59) U/L ALT (21-72) U/L Total Protein (6.3-8.2) g/dL Albumin (3.5-5.0) g/dL Urine Protein Trace H (Negative) Urine Glucose (UA) Trace H (Negative) Urine Blood Moderate H (Negative) Ur Leukocyte Esterase Small H (Negative) Urine RBC 15 H (0-5) /hpf Urine WBC 13 H (0-5) /hpf Urine Mucus Rare H (None) /hpf Assessment and Plan Plan: Patient examined. CLD. Enemas. Check CBC, CMP. Blood culturs pending Contininue IV Unasyn
[2017-03-04 09:57] LABS: ALT 91 U/L (21-72); AST 82 U/L (17-59); Albumin 3.3 g/dL (3.5-5.0); Alkaline Phosphatase 87 U/L (38-126); Anion Gap 11 mmol/L; Blood Urea Nitrogen 15 mg/dL (9-20); Calcium 8.3 mg/dL (8.4-10.2); Carbon Dioxide 23 mmol/L (22-30); Chloride 104 mmol/L (98-107); Glucose 172 mg/dL (74-99); Potassium 4.1 mmol/L (3.5-5.1); Sodium 138 mmol/L (137-145); Total Bilirubin 0.7 mg/dL (0.2-1.3); Total Protein 5.9 g/dL (6.3-8.2)
[2017-03-04 12:39] LABS: Appearance,Urine Clear (Clear); Bilirubin,Urine Negative (Negative); Blood,Urine Moderate (Negative); Color,Urine Yellow; Glucose,Urine (UA) Trace (Negative); Ketones,Urine Negative (Negative); Leukocyte Esterase,Urine Small (Negative); Mucus,Urine Rare /hpf; Nitrite,Urine Negative (Negative); PH, Urine 5.5 (5.0-8.0); Protein,Urine Trace (Negative); RBC,Urine 15 /hpf (0-5); Specific Gravity,Urine 1.012 (1.001-1.035); Urobilinogen,Urine <2.0 mg/dL (<2.0); WBC,Urine 13 /hpf (0-5)
[2017-03-04 12:50] LABS: Glucose,Whole Blood 147 mg/dL (75-99)
[2017-03-04 17:42] LABS: Glucose,Whole Blood 125 mg/dL (75-99)
[2017-03-04 20:56] LABS: Glucose,Whole Blood 154 mg/dL (75-99)
[2017-03-04] MEDS: BISACODYL 10 MG SUPP RECTAL SCH (21:36)
[2017-03-04] MEDS: LATANOPROST 0.005% OPHTH DROPS 2.5 ML BTL BOTH EYES SCH (21:36)
[2017-03-05] MEDS: AMPICILLIN-SULBACTAM 3 GM in SODIUM CHLORIDE 0.9% 100 ML IVPB SCH ×3 (02:21→13:15)
[2017-03-05 07:39] LABS: Glucose,Whole Blood 193 mg/dL (75-99)
[2017-03-05 08:39] LABS: Basophils % (A) 1 %; Eosinophils # (A) 0.3 k/uL (0-0.7); Eosinophils % (A) 4 %; HGB 10.5 gm/dL (13.0-17.5); Lymphocytes # (A) 0.5 k/uL (1.0-4.8); Lymphocytes % (A) 8 %; MCH 29.1 pg (25.0-35.0); MCHC 32.9 g/dL (31.0-37.0); MCV 88.4 fL (80.0-100.0); Mean Platelet Volume 7.3; Monocytes # (A) 0.3 k/uL (0-1.0); Monocytes % (A) 6 %; Neutrophils # (A) 4.9 k/uL (1.3-7.7); Neutrophils % (A) 80 %; Platelet Count 193 k/uL (150-450); RBC 3.62 m/uL (4.30-5.90); RDW 14.5 % (11.5-15.5); WBC 6.1 k/uL (3.8-10.6)
[2017-03-05] MEDS: LABETALOL 200 MG TAB PO SCH ×2 (08:56→21:08)
[2017-03-05] MEDS: PANTOPRAZOLE 40 MG/10 ML VIAL IVP SCH (08:56)
[2017-03-05] MEDS: DOCUSATE 100 MG CAP PO SCH ×2 (08:56→21:09)
[2017-03-05 08:57] LABS: ALT 118 U/L (21-72); AST 90 U/L (17-59); Albumin 3.3 g/dL (3.5-5.0); Alkaline Phosphatase 116 U/L (38-126); Anion Gap 9 mmol/L; Blood Urea Nitrogen 9 mg/dL (9-20); Calcium 8.8 mg/dL (8.4-10.2); Carbon Dioxide 23 mmol/L (22-30); Chloride 107 mmol/L (98-107); Glucose 170 mg/dL (74-99); Potassium 4.2 mmol/L (3.5-5.1); Sodium 139 mmol/L (137-145); Total Bilirubin 0.6 mg/dL (0.2-1.3); Total Protein 6.1 g/dL (6.3-8.2)
[2017-03-05] MEDS: LINAGLIPTIN 5 MG TABLET PO SCH (08:57)
[2017-03-05] MEDS: HYDROcodone/APAP 5-325MG 1 EACH TAB PO PRN ×3 (08:57→19:01)
[2017-03-05] MEDS: HEPARIN SODIUM,PORCINE 5,000 UNIT/ML 1 ML VIAL SQ SCH ×3 (08:57→23:02)
[2017-03-05] MEDS: LISINOPRIL 20 MG TAB PO SCH ×2 (08:57→21:08)
[2017-03-05] MEDS: ASPIRIN 81 MG PO SCH (08:57)
[2017-03-05] MEDS: SODIUM CHLORIDE 0.9% 1,000 ML IV SCH ×4 (08:59→13:10)
[2017-03-05] MEDS: INSULIN ASPART 100 UNIT/ML 1 ML 10 ML VIAL SQ SCH ×4 (09:18→22:03)
--- NOTE | 2017-03-05 10:15 | P.PN ---
<Carla Mcginnis - Last Filed: 03/05/17 10:07> Subjective Progress Note Date: 03/05/17 71-year-old male seen and examined up ambulating in the hallway. Tolerating clear liquid diet asking for diet to be advanced. States passing gas no stool. Did note patient did develop a temp 101.2 this morning white count 6.1 coughing up clear secretions on room air sats are 91% heart rate in the 70s postop March 03 laparscopic cholecystectomy for right upper quadrant pain acute on chronic calculus cholecystitis Objective - Vital Signs Vital signs: Vital Signs Temp 101.2 F H 03/05/17 06:44 Pulse 76 03/04/17 23:00 Resp 16 03/04/17 23:00 BP 106/50 03/04/17 23:00 Pulse Ox 91 L 03/04/17 23:00 Intake & Output 03/04/17 03/05/17 03/05/17 18:59 06:59 18:59 Output Total 280 1660 220 Balance -280 -1660 -220 Output: Drainage 30 60 20 Right 30 60 20 Urine 250 1600 200 Other: # Voids 1 - Exam physical exam 71-year-old male sitting up on the edge of the bed pleasant cooperative taking clear liquid diet Lungs adequate air movement bilaterally on room air sats are 91% no shortness of breath with conversation reports coughing up clear secretions Heart S1-S2 audible regular denying chest pain Abdomen obese slightly distended surgical tenderness appropriate surgical dressings to surgical site dry MARIA DOLORES drain in place serous drainage noted bowel tones present denies nausea vomiting No stool reports no difficulty in urinating Extremities no edema - Labs CBC & Chem 7: 03/05/17 07:45 03/05/17 07:45 Labs: Abnormal Lab Results - Last 24 Hours (Table) 03/04/17 03/04/17 03/04/17 Range/Units 08:41 08:41 12:10 RBC 3.64 L (4.30-5.90) m/uL Hgb 10.7 L (13.0-17.5) gm/dL Hct 32.3 L (39.0-53.0) % Lymphocytes # 0.6 L (1.0-4.8) k/uL Glucose 172 H (74-99) mg/dL POC Glucose (mg/dL) (75-99) mg/dL Calcium 8.3 L (8.4-10.2) mg/dL AST 82 H (17-59) U/L ALT 91 H (21-72) U/L Total Protein 5.9 L (6.3-8.2) g/dL Albumin 3.3 L (3.5-5.0) g/dL Urine Protein Trace H (Negative) Urine Glucose (UA) Trace H (Negative) Urine Blood Moderate H (Negative) Ur Leukocyte Esterase Small H (Negative) Urine RBC 15 H (0-5) /hpf Urine WBC 13 H (0-5) /hpf Urine Mucus Rare H (None) /hpf 03/04/17 03/04/17 03/04/17 Range/Units 12:43 17:13 20:55 RBC (4.30-5.90) m/uL Hgb (13.0-17.5) gm/dL Hct (39.0-53.0) % Lymphocytes # (1.0-4.8) k/uL Glucose (74-99) mg/dL POC Glucose (mg/dL) 147 H 125 H 154 H (75-99) mg/dL Calcium (8.4-10.2) mg/dL AST (17-59) U/L ALT (21-72) U/L Total Protein (6.3-8.2) g/dL Albumin (3.5-5.0) g/dL Urine Protein (Negative) Urine Glucose (UA) (Negative) Urine Blood (Negative) Ur Leukocyte Esterase (Negative) Urine RBC (0-5) /hpf Urine WBC (0-5) /hpf Urine Mucus (None) /hpf 03/05/17 03/05/17 03/05/17 Range/Units 07:35 07:45 07:45 RBC 3.62 L (4.30-5.90) m/uL Hgb 10.5 L (13.0-17.5) gm/dL Hct 32.0 L (39.0-53.0) % Lymphocytes # 0.5 L (1.0-4.8) k/uL Glucose 170 H (74-99) mg/dL POC Glucose (mg/dL) 193 H (75-99) mg/dL Calcium (8.4-10.2) mg/dL AST 90 H (17-59) U/L ALT 118 H (21-72) U/L Total Protein 6.1 L (6.3-8.2) g/dL Albumin 3.3 L (3.5-5.0) g/dL Urine Protein (Negative) Urine Glucose (UA) (Negative) Urine Blood (Negative) Ur Leukocyte Esterase (Negative) Urine RBC (0-5) /hpf Urine WBC (0-5) /hpf Urine Mucus (None) /hpf Microbiology - Last 24 Hours (Table) 03/04/17 12:10 Urine Culture - Preliminary Urine,Clean Catch Assessment and Plan Assessment: Impression Present on admission right upper quadrant pain suspect due to acute cholecystitis Ultrasound of the abdomen gallbladder wall thickening correlate for cholecystitis with gallstones morbid obesity BMI 39 history of an aortic valve replacement 2 years prior obstructive sleep apnea with CPAP therapy Present on admission accelerated hypertension March 03 laparoscopic cholecystectomy for acute on chronic calculus cholecystitis Postop febrile Postop urinary retention Acute on chronic calculus cholecystitis Plan Chest x-ray now Advance diet to full liquid DuoNeb respiratory treatments to be initiated Consult pulmonary service Consult Dr. Bustos infectious disease Increase activity Blood cultures now follow up on results Continue Unasyn as ordered Repeat labs Pain control use incentive spirometer every 1 hour while awake DVT and GI prophylaxis Further recommendations pending The above impression and plan of care have been discussed and directed by signing physician. Carla Mcginnis nurse practitioner acting as scribe for signing physician. <Brittany Cantu - Last Filed: 03/05/17 13:00> Objective - Vital Signs Vital signs: Vital Signs Temp 100.2 F H 03/05/17 07:00 Pulse 90 03/05/17 11:33 Resp 18 03/05/17 07:00 BP 150/77 03/05/17 07:00 Pulse Ox 91 L 03/05/17 07:00 Intake & Output 03/04/17 03/05/17 03/05/17 18:59 06:59 18:59 Output Total 280 1660 840 Balance -280 -1660 -840 Output: Drainage 30 60 40 Right 30 60 40 Urine 250 1600 800 Other: # Voids 1 - Labs CBC & Chem 7: 03/05/17 07:45 03/05/17 07:45 Labs: Abnormal Lab Results - Last 24 Hours (Table) 03/04/17 03/04/1718 Range/Units 17:13 20:55 07:35 RBC (4.30-5.90) m/uL Hgb (13.0-17.5) gm/dL Hct (39.0-53.0) % Lymphocytes # (1.0-4.8) k/uL Glucose (74-99) mg/dL POC Glucose (mg/dL) 125 H 154 H 193 H (75-99) mg/dL AST (17-59) U/L ALT (21-72) U/L Total Protein (6.3-8.2) g/dL Albumin (3.5-5.0) g/dL 03/05/17 03/05/17 Range/Units 07:45 07:45 RBC 3.62 L (4.30-5.90) m/uL Hgb 10.5 L (13.0-17.5) gm/dL Hct 32.0 L (39.0-53.0) % Lymphocytes # 0.5 L (1.0-4.8) k/uL Glucose 170 H (74-99) mg/dL POC Glucose (mg/dL) (75-99) mg/dL AST 90 H (17-59) U/L ALT 118 H (21-72) U/L Total Protein 6.1 L (6.3-8.2) g/dL Albumin 3.3 L (3.5-5.0) g/dL Microbiology - Last 24 Hours (Table) 03/04/17 09:37 Blood Culture - Preliminary Blood No Growth after 24 hours 03/04/17 12:10 Urine Culture - Preliminary Urine,Clean Catch Assessment and Plan Plan: POD#2 S/P lap priyanka for acute on chronic calculous cholecystitis. MARIA DOLORES - serous . LFTS - AST and ALT eleavted . Expected post op .Type 2 DM- HbA1c pending Advance diet Post op fever 101F. Blood cultures pending. On IV unasyn CXR. Pulmonology consult ID consult Discharge on hold till afebrile for 24 hrs .
--- NOTE | 2017-03-05 10:50 | XR ---
EXAMINATION TYPE: XR chest 2V DATE OF EXAM: 03/05/2017 COMPARISON: NONE HISTORY: Shortness of breath. TECHNIQUE: Frontal and lateral views of the chest are obtained. FINDINGS: Multifocal linear opacities either representing atelectasis or pleural parenchymal scarrin g are seen within the mid lungs and retrocardiac airspace. Flattening of the diaphragms on the latera l image correlates with underlying pulmonary emphysema. Cardiac silhouette is mildly enlarged. Post-C ABG changes are seen of the chest. Multilevel moderate degenerative changes of the thoracic spine are noted. Cholecystectomy clips reside within the right upper quadrant. No pneumothorax or pleural effu konrad. IMPRESSION: 1. Scattered areas of linear subsegmental atelectasis. 2. No focal consolidation to suggest pneumonia. 3. Radiographic sequela of COPD.
[2017-03-05] MEDS: IPRATROPIUM-ALBUTEROL 3 ML NEB INHALATION SCH ×4 (11:23→21:59)
--- NOTE | 2017-03-05 12:06 | P.CNPUL ---
History of Present Illness Consult date: 03/05/17 Requesting physician: Brittany Cantu Reason for consult: dyspnea, cough Chief complaint: Abdominal pain History of present illness: This is a very pleasant 71-year-old gentleman who follows with Dr. Santos as his primary care physician. He has a history of diabetes mellitus, hypertension , osteoarthritis, morbid obesity, previous aortic valve replacement, porcine. He also has a history of obstructive sleep apnea and utilizes a CPAP machine in the outpatient setting. He has not been seen by a document restorer in the past. He has a remote history of chronic tobacco use. No evidence of COPD. No oxygen or inhalers in the outpatient setting. He presented here to the emergency room on 03/02/2017 with complaints of abdominal pain. It started a few days prior to his arrival. His discomfort had caused him to have high blood pressure 200/100 at home he became concerned and was seen in the ER. A computed tomography scan performed in the emergency room revealed evidence of mild mesenteric inflammation adjacent to the gallbladder. There is also an inflammatory process mid abdomen suggestive of mesentery panniculitis. Of note there are multiple pulmonary nodules there was noted atelectasis/scarring in the lower lobes bilaterally. There was a 7 mm subpleural nodule left upper lobe , 6 mm subpleural nodule in the right middle lobe. An ultrasound of the gallbladder did reveal evidence of cholelithiasis with dilation and common bile duct measuring 0.7 cm. It subsequently undergone a laparoscopic cholecystectomy on 03/03/2017. This is postoperative day #2. The patient has developed increasing shortness of breath, cough and congestion. He is also developed a fever with a T-max of 101.2 this morning. He is maintaining good O2 saturations in the low 90s on room air. Chest x-ray shows evidence of scattered linear subsegmental atelectasis. No clear evidence of focal consolidation or pneumonia. There is some COPD appreciated. He is seen today in consultation on the regular medical floor. He is awake and alert in no acute distress. He is sitting up in a chair at the bedside. He is working well at the incentive spirometer pulling approximately 1500 mL's. He's been up ambulating with assistance. He has been initiated on DuoNeb inhalations every 4 hours. He is on antibiotics in the form of Unasyn. Blood, urine and sputum cultures are pending. Leukocytosis. Hemoglobin 10.5. There has been a rise in his liver enzymes currently AST 90, ALT 118 Review of Systems 14 point review of system was conducted. All negative other than as mentioned in the HPI. Past Medical History Past Medical History: Diabetes Mellitus, Eye Disorder, Hyperlipidemia, Hypertension, Osteoarthritis (OA), Sleep Apnea/CPAP/BIPAP Additional Past Medical History / Comment(s): NIDDM type II, glaucoma bilateral eyes, NISH with bipap, arthritis bilateral hips/knees. History of Any Multi-Drug Resistant Organisms: None Reported Past Surgical History: Coronary Bypass/CABG, Heart Catheterization, Hernia Repair, Orthopedic Surgery Additional Past Surgical History / Comment(s): 2014 Aortic valve replacement, colonoscopies/benign polypectomy, bilateral cataract removals with lens, circumcism, umbilical hernia repair, r knee arthroscopy. Past Anesthesia/Blood Transfusion Reactions: Previous Problems w/ Anesthesia Additional Past Anesthesia/Blood Transfusion Reaction / Comment(s): HX OF PROBLEMS WITH INTUBATION-STATES THEY TOLD HIM TO INFORM ANESTHESIA WITH ANY SURGERY. Smoking Status: Former smoker - Past Family History Mother Family Medical History: No Reported History Additional Family Medical History / Comment(s): Mother had heart disease and back problems. Father Family Medical History: Diabetes Mellitus Medications and Allergies Home Medications Medication Instructions Recorded Confirmed Type Aspirin [Adult Low Dose Aspirin EC] 81 mg PO DAILY 12/17/15 03/02/17 History Enalapril [Vasotec] 20 mg PO BID 12/17/15 03/02/17 History Fish Oil/Dha/Epa [Fish Oil 1,200 1 cap PO DAILY 12/17/15 03/02/17 History mg Fish Oil] Ibuprofen [Motrin] 800 mg PO Q8HR PRN 12/17/15 03/02/17 History Labetalol [Trandate] 200 mg PO BID 12/17/15 03/02/17 History Pravastatin Sodium [Pravachol] 80 mg PO HS 12/17/15 03/02/17 History metFORMIN HCL [Glucophage] 500 mg PO BID 12/17/15 03/02/17 History ALPRAZolam [Xanax] 0.25 mg PO HS PRN 12/19/15 03/02/17 History Latanoprost Ophth [Xalatan 0.005%] 1 drops BOTH EYES HS 10/27/16 01/09/18 History sitaGLIPtin [Januvia] 100 mg PO DAILY 03/02/17 03/02/17 History Allergies Allergy/AdvReac Type Severity Reaction Status Date / Time No Known Allergies Allergy Verified 03/02/17 08:02 Physical Exam Vitals: Vital Signs Temp Pulse Pulse Resp BP Pulse Ox 03/05/17 11:33 90 03/05/17 11:23 88 03/05/17 07:00 100.2 F H 82 18 150/77 91 L 03/05/17 06:44 101.2 F H 03/04/17 23:00 100.1 F H 76 16 106/50 91 L 03/04/17 21:43 101.1 F H 03/04/17 20:00 102.5 F H 03/04/17 15:30 16 03/04/17 15:00 99.5 F 69 16 122/61 90 L Intake and Output 03/04/17 03/05/17 03/05/17 22:59 06:59 14:59 Output Total 1250 660 840 Balance -1250 -660 -840 Output: Drainage 60 40 Right 60 40 Urine 1250 600 800 Other: # Voids 1 GENERAL EXAM: Obese. Alert, active, comfortable in no apparent distress. HEAD: Normocephalic. EYES: Normal reaction of pupils, equal size. NOSE: Clear with pink turbinates. THROAT: There is crowding of the posterior pharynx. No erythema or exudates. NECK: Short. No masses, no JVD. CHEST: No chest wall deformity. LUNGS: Equal air entry with no crackles, wheeze, rhonchi or dullness. CVS: S1 and S2 normal with an audible murmur, regular rhythm. ABDOMEN: No hepatosplenomegaly, normal bowel sounds, no guarding or rigidity. Surgical sites clean dry and well approximated. MARIA DOLORES drain remains in place. SPINE: No scoliosis or deformity SKIN: No rashes CENTRAL NERVOUS SYSTEM: No focal deficits, tone is normal in all 4 extremities. EXTREMITIES: There is no peripheral edema. No clubbing, no cyanosis. Peripheral pulses are intact. Results - Laboratory Findings CBC and BMP: 03/05/17 07:45 03/05/17 07:45 Abnormal lab findings: Abnormal Labs 03/02/17 03/02/17 03/02/17 01:30 02:21 02:21 RBC Hgb 12.9 L Hct 37.3 L Lymphocytes # 0.7 L Carbon Dioxide 20 L BUN 27 H Glucose 135 H POC Glucose (mg/dL) Hemoglobin A1c Calcium 10.3 H AST ALT Total Protein Albumin Lipase 323 H Urine Protein Trace H Urine Glucose (UA) Urine Ketones 1+ H Urine Blood Ur Leukocyte Esterase Urine RBC Urine WBC Urine Mucus 03/02/17 03/02/17 03/02/17 05:52 07:59 12:05 RBC Hgb Hct Lymphocytes # Carbon Dioxide BUN Glucose POC Glucose (mg/dL) 129 H 132 H 127 H Hemoglobin A1c Calcium AST ALT Total Protein Albumin Lipase Urine Protein Urine Glucose (UA) Urine Ketones Urine Blood Ur Leukocyte Esterase Urine RBC Urine WBC Urine Mucus 03/02/17 03/02/17 03/03/17 17:19 21:11 07:14 RBC Hgb Hct Lymphocytes # Carbon Dioxide BUN Glucose POC Glucose (mg/dL) 208 H 119 H 164 H Hemoglobin A1c Calcium AST ALT Total Protein Albumin Lipase Urine Protein Urine Glucose (UA) Urine Ketones Urine Blood Ur Leukocyte Esterase Urine RBC Urine WBC Urine Mucus 03/03/17 03/03/17 03/03/17 07:34 07:34 07:34 RBC 4.03 L Hgb 11.8 L Hct 34.8 L Lymphocytes # 0.6 L Carbon Dioxide BUN Glucose 140 H POC Glucose (mg/dL) Hemoglobin A1c 6.3 H Calcium AST ALT Total Protein Albumin Lipase Urine Protein Urine Glucose (UA) Urine Ketones Urine Blood Ur Leukocyte Esterase Urine RBC Urine WBC Urine Mucus 03/03/17 03/03/17 03/03/17 13:33 17:12 20:59 RBC Hgb Hct Lymphocytes # Carbon Dioxide BUN Glucose POC Glucose (mg/dL) 168 H 138 H 123 H Hemoglobin A1c Calcium AST ALT Total Protein Albumin Lipase Urine Protein Urine Glucose (UA) Urine Ketones Urine Blood Ur Leukocyte Esterase Urine RBC Urine WBC Urine Mucus 03/04/17 03/04/17 03/04/17 07:54 08:41 08:41 RBC 3.64 L Hgb 10.7 L Hct 32.3 L Lymphocytes # 0.6 L Carbon Dioxide BUN Glucose 172 H POC Glucose (mg/dL) 144 H Hemoglobin A1c Calcium 8.3 L AST 82 H ALT 91 H Total Protein 5.9 L Albumin 3.3 L Lipase Urine Protein Urine Glucose (UA) Urine Ketones Urine Blood Ur Leukocyte Esterase Urine RBC Urine WBC Urine Mucus 03/04/17 03/04/17 03/04/17 12:10 12:43 17:13 RBC Hgb Hct Lymphocytes # Carbon Dioxide BUN Glucose POC Glucose (mg/dL) 147 H 125 H Hemoglobin A1c Calcium AST ALT Total Protein Albumin Lipase Urine Protein Trace H Urine Glucose (UA) Trace H Urine Ketones Urine Blood Moderate H Ur Leukocyte Esterase Small H Urine RBC 15 H Urine WBC 13 H Urine Mucus Rare H 03/04/17 03/05/17 03/05/17 20:55 07:35 07:45 RBC 3.62 L Hgb 10.5 L Hct 32.0 L Lymphocytes # 0.5 L Carbon Dioxide BUN Glucose POC Glucose (mg/dL) 154 H 193 H Hemoglobin A1c Calcium AST ALT Total Protein Albumin Lipase Urine Protein Urine Glucose (UA) Urine Ketones Urine Blood Ur Leukocyte Esterase Urine RBC Urine WBC Urine Mucus 03/05/17 07:45 RBC Hgb Hct Lymphocytes # Carbon Dioxide BUN Glucose 170 H POC Glucose (mg/dL) Hemoglobin A1c Calcium AST 90 H ALT 118 H Total Protein 6.1 L Albumin 3.3 L Lipase Urine Protein Urine Glucose (UA) Urine Ketones Urine Blood Ur Leukocyte Esterase Urine RBC Urine WBC Urine Mucus - Diagnostic Findings Chest x-ray: image reviewed Assessment and Plan Assessment: Impression: #1 Cholelithiasis status post laparoscopic cholecystectomy, postoperative day # 2. #2 Febrile illness of unclear etiology. Sputum, urine and blood cultures are pending. #3 Postoperative atelectasis. #4 Pulmonary nodules noted on computed tomography scan of the abdomen including a 7 mm subpleural nodule in the left upper lobe, 6 mm subpleural pulmonary nodule in the right middle lobe. #5 Remote history of chronic tobacco dependence. #6 History of aortic valve replacement utilizing a tissue valve. #7 Obstructive sleep apnea, utilizing CPAP in the outpatient setting. #8 Morbid obesity. #9 Hypertension. #10 Diabetes mellitus. #11 Osteoarthritis. Plan: The patient was seen and evaluated by Dr. Youngblood. His chest x-ray and labs were reviewed. There are areas of subsegmental atelectasis. We have encouraged the patient to increase the utilization of the incentive spirometer, continue bronchodilators, obtain a sputum sample. Increase his activity as tolerated. He remains on antibiotics in the form of Unasyn. He will need a dedicated computed tomography scan of the chest regarding the sub-centimeter pulmonary nodules. We will continue to follow and make further recommendations based on his clinical status. I, the cosigning physician, have performed a history and physical examination on the patient. Lung sounds are clear. Maintaining good O2 saturations in the 90s on room air. I have discussed the assessment and plan of care with my nurse practitioner, Peri Vann. I attest to the above consult as dictated by her. Time with Patient: Greater than 30
[2017-03-05 13:04] LABS: Glucose,Whole Blood 136 mg/dL (75-99)
--- NOTE | 2017-03-05 14:27 | CDI ---
Last Revision, January 2017 Documentation Clarification Form Date: 03/05/2017 2:21:00 PM From: Sharla GrimesManriqueANAT galvan, CCDS Admit Date: 03/02/2017 5:11:00 AM Patient Name: Danial Richardson Visit Number: [id number] Discharge Date: ATTENTION: The Clinical Documentation Specialists (CDI) and [facility] Coding Staff appreciate your assistance in clarifying documentation. Please respond to the clarification below the line at the bottom and electronically sign. The CDI & [facility] Coding staff will review the response and follow-up if needed. Please note: Queries are made part of the Legal Health Record. If you have any questions, please contact the author of this message via ITS. Dr. Brittany Cantu: Postop urinary retention is documented in the 03/04 attending/surgical progress note. Patients Admitting Diagnosis: Acute on cholecystitis Post-Operative Diagnosis: Same Procedure performed: Lap cholecystectomy History/Risk Factors: DM, Hyperlipidemia, Hypertension, Obstructive Sleep Apnea , Former smoker. Clinical Indicators: Developed urinary retention postoperatively. Treatment: Increase activity, blood cultures pending, IV Unasyn, pain control. In order to accurately reflect this patients severity of illness, please clarify if the post-operative urinary retention diagnosis is: An expected post-procedural or post-surgical condition; Integral to the procedure; Inherent to the procedure; An unexpected post-procedural or post-surgical condition related to surgical care; Other, please specify Unable to determine Please continue to document in your progress notes and discharge summary in order to capture severity of illness and risk of mortality. Include clinical findings that support your diagnosis. MTDD
--- NOTE | 2017-03-05 14:34 | CDI ---
Last Revision, January 2017 Documentation Clarification Form Date: 03/05/2017 2:28:00 PM From: Sharla GrimesManriqueANAT galvan, CCDS Admit Date: 03/02/2017 5:11:00 AM Patient Name: Danial Richardson Visit Number: [id number] Discharge Date: ATTENTION: The Clinical Documentation Specialists (CDI) and [facility] Coding Staff appreciate your assistance in clarifying documentation. Please respond to the clarification below the line at the bottom and electronically sign. The CDI & [facility] Coding staff will review the response and follow-up if needed. Please note: Queries are made part of the Legal Health Record. If you have any questions, please contact the author of this message via ITS. Dr. Derick Youngblood: Postoperative atelectasis is documented in the 03/05 Pulmonary Consult.. Patients Admitting Diagnosis: Abdominal pain Post-Operative Diagnosis: Acute on chronic cholecystitis. Procedure performed: Lap Kelsey History/Risk Factors: Former smoker, COPD, NISH w/CPAP. Clinical Indicators: POD #2, developed SOB, cough & congestion, fever 101.2, CXR : atelectasis, COPD. Treatment: Incentive spirometry, ambulating, DuoNeb INH, IV Unasyn, Blood, urine & sputum cultures are pending. In order to accurately reflect this patients severity of illness, please clarify if the post-operative diagnosis atelectasis is: An expected post-procedural or post-surgical condition; Integral to the procedure; Inherent to the procedure; An unexpected post-procedural or post-surgical condition related to surgical care; Other, please specify Unable to determine Please continue to document in your progress notes and discharge summary in order to capture severity of illness and risk of mortality. Include clinical findings that support your diagnosis. MTDD
--- NOTE | 2017-03-05 14:36 | P.CONS ---
History of Present Illness - Reason for Consult Consult date: 03/05/17 Acute cholecystitis, antibiotics - History of Present Illness This is a 71-year-old male patient who presented to hospital on March 02 with complaints of abdominal pain. CT angiography of the chest and abdomen and pelvis revealed no evidence of aortic dissection or aneurysm. Mild mesenteric inflammation adjacent to the gallbladder correlate for cholecystitis. Nonspecific Ratna mesentery in the mid abdomen may be related to the inflammatory process such as mesenteric panniculitis. Multiple pulmonary nodules. Abdominal ultrasound showed cholelithiasis with dilation of the common bile duct. Gallbladder wall thickening correlate for cholecystitis. Correlate for fatty infiltration of the liver. On March 03, patient underwent laparoscopic cholecystectomy. 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 Patient did have post op urinary retention and required straight cath. He did have burning with urination for a couple of times after straight cath but this has cleared. Urinalysis was clear with nitrate negative and leukoesterase small, RBCs 15 and WBC 13. His white count has been 6.1. Patient has been running fevers up to 102.5 since March 02 intermittently but consistently since the evening of March 04. Noted his AST is 90 and ALT 118. Chest x-ray done today shows scattered areas of linear subsegmental atelectasis areas no focal consolation, COPD. Patient has been using his incentive spirometry at at least 1500 ML's. He has been ambulating in the hallways without difficulty. He is tolerating full liquid diet. He denies any significant abdominal pain. He does state that he uses a CPAP at night and he has congestion in his upper chest every morning for which she coughs up phlegm. Sputum cultures to be obtained. Review of Systems All systems: negative Constitutional: Reports chills, Reports fever, Denies anorexia, Denies fatigue, Denies poor appetite, Denies weakness Eyes: denies blurred vision, denies pain Ears, nose, mouth and throat: Denies dental pain, Denies headache, Denies mouth pain, Denies sore throat Cardiovascular: Denies chest pain, Denies decreased exercise tolerance, Denies dyspnea on exertion, Denies edema, Denies leg edema, Denies lightheadedness, Denies shortness of breath, Denies syncope Respiratory: Reports cough with sputum, Denies cough, Denies dyspnea, Denies excessive sputum, Denies hemoptysis, Denies home oxygen, Denies wheezing Gastrointestinal: Denies abdominal pain, Denies diarrhea, Denies nausea, Denies vomiting Genitourinary: Denies dysuria, Denies hematuria Musculoskeletal: Denies myalgias Integumentary: Denies pruritus, Denies rash Neurological: Denies numbness, Denies weakness Psychiatric: Denies anxiety, Denies depression Endocrine: Denies fatigue, Denies weight change Past Medical History Past Medical History: Diabetes Mellitus, Eye Disorder, Hyperlipidemia, Hypertension, Osteoarthritis (OA), Sleep Apnea/CPAP/BIPAP Additional Past Medical History / Comment(s): NIDDM type II, glaucoma bilateral eyes, NISH with bipap, arthritis bilateral hips/knees. History of Any Multi-Drug Resistant Organisms: None Reported Past Surgical History: Cholecystectomy, Coronary Bypass/CABG, Heart Catheterization, Hernia Repair, Orthopedic Surgery Additional Past Surgical History / Comment(s): 2014 Aortic valve replacement, colonoscopies/benign polypectomy, bilateral cataract removals with lens, circumcism, umbilical hernia repair, r knee arthroscopy. Past Anesthesia/Blood Transfusion Reactions: Previous Problems w/ Anesthesia Additional Past Anesthesia/Blood Transfusion Reaction / Comm: HX OF PROBLEMS WITH INTUBATION-STATES THEY TOLD HIM TO INFORM ANESTHESIA WITH ANY SURGERY. Smoking Status: Former smoker Additional Past Alcohol Use History / Comment(s): Patient was a smoker one pack per day for 22 years and quit in 1988. He denies any medical marijuana, marijuana, street drug use. He occasionally drinks a few beers. He lives alone. No pets in the home. 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 Previous to that he worked for [employer]. He has served in the [employer] and stationed in [place] during the [place] war. He denies any time in [employer] [place] - Past Family History Mother Family Medical History: No Reported History Additional Family Medical History / Comment(s): Mother had heart disease and back problems. Father Family Medical History: Diabetes Mellitus Medications and Allergies Home Medications Medication Instructions Recorded Confirmed Type Aspirin [Adult Low Dose Aspirin EC] 81 mg PO DAILY 12/17/15 03/02/17 History Enalapril [Vasotec] 20 mg PO BID 12/17/15 03/02/17 History Fish Oil/Dha/Epa [Fish Oil 1,200 1 cap PO DAILY 12/17/15 03/02/17 History mg Fish Oil] Ibuprofen [Motrin] 800 mg PO Q8HR PRN 12/17/15 03/02/17 History Labetalol [Trandate] 200 mg PO BID 12/17/15 03/02/17 History Pravastatin Sodium [Pravachol] 80 mg PO HS 12/17/15 03/02/17 History metFORMIN HCL [Glucophage] 500 mg PO BID 12/17/15 03/02/17 History ALPRAZolam [Xanax] 0.25 mg PO HS PRN 12/19/15 03/02/17 History Latanoprost Ophth [Xalatan 0.005%] 1 drops BOTH EYES HS 12/19/15 03/02/17 History sitaGLIPtin [Januvia] 100 mg PO DAILY 03/02/17 03/02/17 History Docusate [Colace] 100 mg PO BID #30 capsule 03/05/17 Rx Hydrocodone/Acetaminophen [[place] 1 each PO Q6HR PRN #20 tab 03/05/17 Rx 5-325] Allergies Allergy/AdvReac Type Severity Reaction Status Date / Time No Known Allergies Allergy Verified 03/02/17 08:02 Physical Exam Vitals: Vital Signs Temp Pulse Pulse Resp BP Pulse Ox 03/05/17 11:35 98.6 F 03/05/17 11:33 90 03/05/17 11:23 88 03/05/17 07:00 100.2 F H 82 18 150/77 91 L 03/05/17 06:44 101.2 F H 03/04/17 23:00 100.1 F H 76 16 106/50 91 L 03/04/17 21:43 101.1 F H 03/04/17 20:00 102.5 F H 03/04/17 15:30 16 03/04/17 15:00 99.5 F 69 16 122/61 90 L Intake and Output 03/04/17 03/05/17 03/05/17 22:59 06:59 14:59 Output Total 1250 660 840 Balance -1250 -660 -840 Output: Drainage 60 40 Right 60 40 Urine 1250 600 800 Other: # Voids 1 Gen: This is a morbidly obese 71-year-old male patient. He is sitting up in a chair at the bedside and appears to be in no acute distress. HEENT: Head is atraumatic, normocephalic. Pupils equal, round. Sclerae is anicteric. Conjunctiva pink. Mucous membranes of the mouth are moist. NECK: Supple. No JVD. No lymphadenopathy. No thyromegaly. LUNGS: Clear to auscultation. No wheezes or rhonchi. No intercostal retractions. HEART: Regular rate and rhythm. Systolic murmur. ABDOMEN: Soft. Bowel sounds are present. No masses. No tenderness. Puncture wounds noted to have mild erythema but no drainage. Edges are well approximated. EXTREMITIES: No pedal edema. No calf tenderness. Dorsalis pedis +2 bilaterally. NEUROLOGICAL: Patient is awake, alert and oriented x3. Cranial nerves 2 through 12 are grossly intact. Results Results: Laboratory Results WBC 6.1 k/uL (3.8-10.6) 03/05/17 07:45 RBC 3.62 m/uL (4.30-5.90) L 03/05/17 07:45 Hgb 10.5 gm/dL (13.0-17.5) L 03/05/17 07:45 Hct 32.0 % (39.0-53.0) L 03/05/17 07:45 MCV 88.4 fL (80.0-100.0) 03/05/17 07:45 MCH 29.1 pg (25.0-35.0) 03/05/17 07:45 MCHC 32.9 g/dL (31.0-37.0) 03/05/17 07:45 RDW 14.5 % (11.5-15.5) 03/05/17 07:45 Plt Count 193 k/uL (150-450) 03/05/17 07:45 Neutrophils % 80 % 03/05/17 07:45 Lymphocytes % 8 % 03/05/17 07:45 Monocytes % 6 % 03/05/17 07:45 Eosinophils % 4 % 03/05/17 07:45 Basophils % 1 % 03/05/17 07:45 Neutrophils # 4.9 k/uL (1.3-7.7) 03/05/17 07:45 Lymphocytes # 0.5 k/uL (1.0-4.8) L 03/05/17 07:45 Monocytes # 0.3 k/uL (0-1.0) 03/05/17 07:45 Eosinophils # 0.3 k/uL (0-0.7) 03/05/17 07:45 Basophils # 0.0 k/uL (0-0.2) 03/05/17 07:45 Sodium 139 mmol/L (137-145) 03/05/17 07:45 Potassium 4.2 mmol/L (3.5-5.1) 03/05/17 07:45 Chloride 107 mmol/L (98-107) 03/05/17 07:45 Carbon Dioxide 23 mmol/L (22-30) 03/05/17 07:45 Anion Gap 9 mmol/L 03/05/17 07:45 BUN 9 mg/dL (9-20) 03/05/17 07:45 Creatinine 1.13 mg/dL (0.66-1.25) 03/05/17 07:45 Est GFR (MDRD) Af Amer >60 (>60 ml/min/1.73 sqM) 03/05/17 07:45 Est GFR (MDRD) Non-Af >60 (>60 ml/min/1.73 sqM) 03/05/17 07:45 Glucose 170 mg/dL (74-99) H 03/05/17 07:45 POC Glucose (mg/dL) 136 mg/dL (75-99) H 03/05/17 12:45 POC Glu Lamination Inspector LU Alexandra Penaloza 03/05/17 12:[address] Glu mg/dL 134 03/03/17 07:34 Hemoglobin A1c 6.3 % (4.0-6.0) H 03/03/17 07:34 Plasma Lactic Acid Sushil 1.1 mmol/L (0.7-2.0) 03/04/17 20:04 Calcium 8.8 mg/dL (8.4-10.2) 03/05/17 07:45 Total Bilirubin 0.6 mg/dL (0.2-1.3) 03/05/17 07:45 AST 90 U/L (17-59) H 03/05/17 07:45 ALT 118 U/L (21-72) H 03/05/17 07:45 Alkaline Phosphatase 116 U/L (38-126) 03/05/17 07:45 Total Protein 6.1 g/dL (6.3-8.2) L 03/05/17 07:45 Albumin 3.3 g/dL (3.5-5.0) L 03/05/17 07:45 Amylase 60 U/L (30-110) 03/02/17 02:21 Lipase 323 U/L (23-300) H 03/02/17 02:21 Urine Color Yellow 03/04/17 12:10 Urine Appearance Clear (Clear) 03/04/17 12:10 Urine pH 5.5 (5.0-8.0) 03/04/17 12:10 Ur Specific [place] 1.012 (1.001-1.035) 03/04/17 12:10 Urine Protein Trace (Negative) H 03/04/17 12:10 Urine Glucose (UA) Trace (Negative) H 03/04/17 12:10 Urine Ketones Negative (Negative) 03/04/17 12:10 Urine Blood Moderate (Negative) H 03/04/17 12:10 Urine Nitrite Negative (Negative) 03/04/17 12:10 Urine Bilirubin Negative (Negative) 03/04/17 12:10 Urine Urobilinogen <2.0 mg/dL (<2.0) 03/04/17 12:10 Ur Leukocyte Esterase Small (Negative) H 03/04/17 12:10 Urine RBC 15 /hpf (0-5) H 03/04/17 12:10 Urine WBC 13 /hpf (0-5) H 03/04/17 12:10 Urine Mucus Rare /hpf (None) H 03/04/17 12:10 CBC & Chem 7: 03/07/17 07:19 03/07/17 07:19 Labs: Abnormal Lab Results - Last 24 Hours (Table) 03/04/17 03/04/17 03/05/17 Range/Units 17:13 20:55 07:35 RBC (4.30-5.90) m/uL Hgb (13.0-17.5) gm/dL Hct (39.0-53.0) % Lymphocytes # (1.0-4.8) k/uL Glucose (74-99) mg/dL POC Glucose (mg/dL) 125 H 154 H 193 H (75-99) mg/dL AST (17-59) U/L ALT (21-72) U/L Total Protein (6.3-8.2) g/dL Albumin (3.5-5.0) g/dL 03/05/17 03/05/17 03/05/17 Range/Units 07:45 07:45 12:45 RBC 3.62 L (4.30-5.90) m/uL Hgb 10.5 L (13.0-17.5) gm/dL Hct 32.0 L (39.0-53.0) % Lymphocytes # 0.5 L (1.0-4.8) k/uL Glucose 170 H (74-99) mg/dL POC Glucose (mg/dL) 136 H (75-99) mg/dL AST 90 H (17-59) U/L ALT 118 H (21-72) U/L Total Protein 6.1 L (6.3-8.2) g/dL Albumin 3.3 L (3.5-5.0) g/dL Microbiology - Last 24 Hours (Table) 03/04/17 12:10 Urine Culture - Final Urine,Clean Catch 03/04/17 09:37 Blood Culture - Preliminary Blood No Growth after 24 hours Assessment and Plan Plan: This is a 71-year-old male patient who presented to the hospital with abdominal pain status post cholecystectomy done on March 03. He has been running fevers up to 102 most consistently since March 04. Noted his AST and ALT are mildly elevated. His urinalysis is negative for urinary tract infection. He did have postop urinary retention and required straight cath. He has been seen by pulmonary medicine for postop atelectasis. Noted pulmonary nodules on CAT scan with plan for follow-up. Blood culture showing no growth after 24 hours. He is currently on Unasyn which will be changed to meropenem. Continue supportive care. Further recommendations as patient progresses. The above dictated assessment and findings were discussed with Dr. Bustos. The impression and plan of care have been directed as dictated. Ora Cole nurse practitioner acting as scribe for Dr. Bustos.
[2017-03-05 17:02] LABS: Glucose,Whole Blood 146 mg/dL (75-99)
[2017-03-05] MEDS: ACETAMINOPHEN TAB 325 MG TAB PO PRN ×2 (18:13→23:02)
[2017-03-05 18:50] LABS: Hemoglobin A1C 6.4 % (4.0-6.0)
[2017-03-05] MEDS: MEROPENEM 1 GM in SODIUM CHLORIDE 0.9% 100 ML IVPB SCH (21:03)
[2017-03-05] MEDS: LATANOPROST 0.005% OPHTH DROPS 2.5 ML BTL BOTH EYES SCH (21:08)
[2017-03-05] MEDS: BISACODYL 10 MG SUPP RECTAL SCH (21:09)
[2017-03-05 21:48] LABS: Glucose,Whole Blood 128 mg/dL (75-99)
--- NOTE | 2017-03-05 23:19 | P.CON ---
Consult Note - . Consult date: 03/05/17 Assessment/Plan:: This is a 71-year-old male patient who presented to hospital on March 02 with complaints of abdominal pain. CT angiography of the chest and abdomen and pelvis revealed no evidence of aortic dissection or aneurysm. Mild mesenteric inflammation adjacent to the gallbladder correlate for cholecystitis. Nonspecific Ratna mesentery in the mid abdomen may be related to the inflammatory process such as mesenteric panniculitis. Multiple pulmonary nodules. Abdominal ultrasound showed cholelithiasis with dilation of the common bile duct. Gallbladder wall thickening correlate for cholecystitis. Correlate for fatty infiltration of the liver. On March 03, patient underwent laparoscopic cholecystectomy. 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 Patient did have post op urinary retention and required straight cath. He did have burning with urination for a couple of times after straight cath but this has cleared. Urinalysis was clear with nitrate negative and leukoesterase small, RBCs 15 and WBC 13. His white count has been 6.1. Patient has been running fevers up to 102.5 since March 02 intermittently but consistently since the evening of March 04. Noted his AST is 90 and ALT 118. Chest x-ray done today shows scattered areas of linear subsegmental atelectasis areas no focal consolation, COPD. Patient has been using his incentive spirometry at at least 1500 ML's. He has been ambulating in the hallways without difficulty. He is tolerating full liquid diet. He denies any significant abdominal pain. He does state that he uses a CPAP at night and he has congestion in his upper chest every morning for which she coughs up phlegm. Sputum cultures to be obtained. Please see the consult note as dictated by nurse practitioner Mrs. Ora Cole. Pleasant gentleman status post cholecystectomy continue to have ongoing fevers. His bilirubin is normal but his AST and ALT have increased. Concerns that there could be ascending infection post surgery. Antimicrobial therapy as changed to meropenem. Fever, leukocytosis and enzymes will be monitored. Patient's pulmonary status is also being monitored. Chest x-ray without linwood pneumonia. I agree with evaluation, assessment and plan this dictated by nurse practitioner Mrs. Ora Cole.
[2017-03-06] MEDS: IPRATROPIUM-ALBUTEROL 3 ML NEB INHALATION SCH ×7 (00:49→23:56)
[2017-03-06] MEDS: ACETAMINOPHEN TAB 325 MG TAB PO PRN ×2 (04:28→08:37)
[2017-03-06 05:14] LABS: Basophils % (A) 1 %; Eosinophils # (A) 0.3 k/uL (0-0.7); Eosinophils % (A) 4 %; HCT 31.6 % (39.0-53.0); HGB 10.4 gm/dL (13.0-17.5); Lymphocytes # (A) 0.4 k/uL (1.0-4.8); Lymphocytes % (A) 6 %; MCHC 32.9 g/dL (31.0-37.0); MCV 88.2 fL (80.0-100.0); Mean Platelet Volume 7.4; Monocytes # (A) 0.4 k/uL (0-1.0); Monocytes % (A) 5 %; Neutrophils # (A) 5.3 k/uL (1.3-7.7); Neutrophils % (A) 82 %; Platelet Count 219 k/uL (150-450); RBC 3.58 m/uL (4.30-5.90); RDW 13.9 % (11.5-15.5); WBC 6.5 k/uL (3.8-10.6)
[2017-03-06 05:39] LABS: ALT 130 U/L (21-72); AST 77 U/L (17-59); Albumin 3.3 g/dL (3.5-5.0); Alkaline Phosphatase 146 U/L (38-126); Anion Gap 13 mmol/L; Blood Urea Nitrogen 9 mg/dL (9-20); Calcium 8.7 mg/dL (8.4-10.2); Carbon Dioxide 20 mmol/L (22-30); Chloride 107 mmol/L (98-107); Glucose 134 mg/dL (74-99); Potassium 4.2 mmol/L (3.5-5.1); Sodium 140 mmol/L (137-145); Total Bilirubin 0.8 mg/dL (0.2-1.3); Total Protein 6.2 g/dL (6.3-8.2)
[2017-03-06 07:30] LABS: Glucose,Whole Blood 158 mg/dL (75-99)
[2017-03-06] MEDS: PANTOPRAZOLE 40 MG/10 ML VIAL IVP SCH (08:36)
[2017-03-06] MEDS: LABETALOL 200 MG TAB PO SCH ×2 (08:37→20:17)
[2017-03-06] MEDS: HEPARIN SODIUM,PORCINE 5,000 UNIT/ML 1 ML VIAL SQ SCH ×3 (08:37→23:58)
[2017-03-06] MEDS: DOCUSATE 100 MG CAP PO SCH ×2 (08:37→20:18)
[2017-03-06] MEDS: LISINOPRIL 20 MG TAB PO SCH ×2 (08:37→20:18)
[2017-03-06] MEDS: LINAGLIPTIN 5 MG TABLET PO SCH (08:37)
[2017-03-06] MEDS: ASPIRIN 81 MG PO SCH (08:37)
[2017-03-06] MEDS: INSULIN ASPART 100 UNIT/ML 1 ML 10 ML VIAL SQ SCH ×4 (08:38→21:50)
[2017-03-06] MEDS: MEROPENEM 1 GM in SODIUM CHLORIDE 0.9% 100 ML IVPB SCH ×3 (09:49→23:58)
--- NOTE | 2017-03-06 11:52 | P.PN ---
Subjective Progress Note Date: 03/06/17 Principal diagnosis: Cholecystitis Patient states he is doing better. Decreased pain each day. This morning he did have increased shortness of breath however. He is now on oxygen. He had a temp again last night of 102. Liver enzymes up slightly. MARIA DOLORES drain remains serous. Pulmonary evaluating the patient currently. Chest x-ray shows some atelectasis. Infectious disease consultation appreciated. Objective - Vital Signs Vital signs: Vital Signs Temp 98.9 F 03/06/17 09:48 Pulse 84 03/06/17 08:01 Resp 16 03/06/17 07:00 BP 159/74 03/06/17 07:00 Pulse Ox 80 L 03/06/17 07:52 Intake & Output 03/05/17 03/06/17 03/06/17 18:59 06:59 18:59 Intake Total 200 100 Output Total 920 120 400 Balance -920 80 -300 Intake: Intake, IV Titration 100 Amount Meropenem 1 gm In Sodium 100 Chloride 0.9% 100 ml @ 100 mls/hr IVPB Q8HR [facility] Rx#:[id number] Oral 200 Output: Drainage 120 120 Right 120 120 Urine 800 400 Other: # Voids 1 # Bowel Movements 1 - Exam Abdomen: Soft, nondistended, mild incisional tenderness, MARIA DOLORES intact - Labs CBC & Chem 7: 03/06/17 04:51 03/06/17 04:51 Labs: Abnormal Lab Results - Last 24 Hours (Table) 03/05/17 03/05/17 03/05/17 Range/Units 12:45 17:00 21:32 RBC (4.30-5.90) m/uL Hgb (13.0-17.5) gm/dL Hct (39.0-53.0) % Lymphocytes # (1.0-4.8) k/uL Carbon Dioxide (22-30) mmol/L Glucose (74-99) mg/dL POC Glucose (mg/dL) 136 H 146 H 128 H (75-99) mg/dL AST (17-59) U/L ALT (21-72) U/L Alkaline Phosphatase (38-126) U/L Total Protein (6.3-8.2) g/dL Albumin (3.5-5.0) g/dL 03/06/17 03/06/17 03/06/17 Range/Units 04:51 04:51 07:25 RBC 3.58 L (4.30-5.90) m/uL Hgb 10.4 L (13.0-17.5) gm/dL Hct 31.6 L (39.0-53.0) % Lymphocytes # 0.4 L (1.0-4.8) k/uL Carbon Dioxide 20 L (22-30) mmol/L Glucose 134 H (74-99) mg/dL POC Glucose (mg/dL) 158 H (75-99) mg/dL AST 77 H (17-59) U/L ALT 130 H (21-72) U/L Alkaline Phosphatase 146 H (38-126) U/L Total Protein 6.2 L (6.3-8.2) g/dL Albumin 3.3 L (3.5-5.0) g/dL Microbiology - Last 24 Hours (Table) 03/04/17 09:37 Blood Culture - Preliminary Blood No Growth after 48 hours 03/04/17 20:04 Blood Culture - Preliminary Blood No Growth after 24 hours 03/04/17 12:10 Urine Culture - Final Urine,Clean Catch Assessment and Plan (1) Acute cholecystitis Narrative/Plan: Continue antibiotics per infectious disease. Continue diet. Possible diuretics. Hepatic congestion would explain also some elevation of liver enzymes. Fevers persist we'll plan CAT scan abdomen although clinically not suspicious of intra-abdominal source of fevers. Current Visit: Yes Status: Acute Code(s): K81.0 - ACUTE CHOLECYSTITIS SNOMED Code(s): 10183411
[2017-03-06 12:31] LABS: Glucose,Whole Blood 181 mg/dL (75-99)
--- NOTE | 2017-03-06 12:36 | P.PN ---
Subjective Progress Note Date: 03/06/17 Principal diagnosis: Cholelithiasis, status post laparoscopic cholecystectomy This is a very pleasant 71-year-old gentleman who follows with Dr. Santos as his primary care physician. He has a history of diabetes mellitus, hypertension , osteoarthritis, morbid obesity, previous aortic valve replacement, porcine. He also has a history of obstructive sleep apnea and utilizes a CPAP machine in the outpatient setting. He has not been seen by a racking technician in the past. He has a remote history of chronic tobacco use. No evidence of COPD. No oxygen or inhalers in the outpatient setting. He presented here to the emergency room on 03/02/2017 with complaints of abdominal pain. It started a few days prior to his arrival. His discomfort had caused him to have high blood pressure 200/100 at home he became concerned and was seen in the ER. A computed tomography scan performed in the emergency room revealed evidence of mild mesenteric inflammation adjacent to the gallbladder. There is also an inflammatory process mid abdomen suggestive of mesentery panniculitis. Of note there are multiple pulmonary nodules there was noted atelectasis/scarring in the lower lobes bilaterally. There was a 7 mm subpleural nodule left upper lobe , 6 mm subpleural nodule in the right middle lobe. An ultrasound of the gallbladder did reveal evidence of cholelithiasis with dilation and common bile duct measuring 0.7 cm. It subsequently undergone a laparoscopic cholecystectomy on 03/03/2017. This is postoperative day #2. The patient has developed increasing shortness of breath, cough and congestion. He is also developed a fever with a T-max of 101.2 this morning. He is maintaining good O2 saturations in the low 90s on room air. Chest x-ray shows evidence of scattered linear subsegmental atelectasis. No clear evidence of focal consolidation or pneumonia. There is some COPD appreciated. He is seen today in consultation on the regular medical floor. He is awake and alert in no acute distress. He is sitting up in a chair at the bedside. He is working well at the incentive spirometer pulling approximately 1500 mL's. He's been up ambulating with assistance. He has been initiated on DuoNeb inhalations every 4 hours. He is on antibiotics in the form of Unasyn. Blood, urine and sputum cultures are pending. Leukocytosis. Hemoglobin 10.5. There has been a rise in his liver enzymes currently AST 90, ALT 118 She is seen again today 03/06/2017 in follow-up on the regular medical floor. He is awake and alert in no acute distress. Currently sitting up in the chair at the bedside. Maintaining good O2 saturations in the 90s on room air. He did have an episode of waking up with his CPAP in place feeling quite short of breath and needed to sit up to regain his breath. He has had ongoing issues with fevers. 101.2 again this morning. Blood and urine cultures reveal no growth to date. His cough is nonproductive thus far. No leukocytosis. He remains on meropenem. Hemoglobin 10.4. Liver enzymes continue to rise, AST 77 , ALT 130, alk phos 146. Continues to work well with his incentive spirometer. He's up with assistance. Objective - Vital Signs Vital signs: Vital Signs Temp 98.9 F 03/06/17 09:48 Pulse 86 03/06/17 12:16 Resp 16 03/06/17 07:00 BP 159/74 03/06/17 07:00 Pulse Ox 80 L 03/06/17 07:52 Intake & Output 03/05/17 03/06/17 03/06/17 18:59 06:59 18:59 Intake Total 200 100 Output Total 920 120 400 Balance -920 80 -300 Intake: Intake, IV Titration 100 Amount Meropenem 1 gm In Sodium 100 Chloride 0.9% 100 ml @ 100 mls/hr IVPB Q8HR [facility] Rx#:[id number] Oral 200 Output: Drainage 120 120 Right 120 120 Urine 800 400 Other: # Voids 1 # Bowel Movements 1 - Exam GENERAL EXAM: Obese. Alert, active, comfortable in no apparent distress. HEAD: Normocephalic. EYES: Normal reaction of pupils, equal size. NOSE: Clear with pink turbinates. THROAT: There is crowding of the posterior pharynx. No erythema or exudates. NECK: Short. No masses, no JVD. CHEST: No chest wall deformity. LUNGS: Equal air entry with no crackles, wheeze, rhonchi or dullness. CVS: S1 and S2 normal with an audible murmur, regular rhythm. ABDOMEN: No hepatosplenomegaly, normal bowel sounds, no guarding or rigidity. Surgical sites clean dry and well approximated. MARIA DOLORES drain remains in place. SPINE: No scoliosis or deformity SKIN: No rashes CENTRAL NERVOUS SYSTEM: No focal deficits, tone is normal in all 4 extremities. EXTREMITIES: There is no peripheral edema. No clubbing, no cyanosis. Peripheral pulses are intact. - Labs CBC & Chem 7: 03/06/17 04:51 03/06/17 04:51 Labs: Abnormal Lab Results - Last 24 Hours (Table) 03/05/17 03/05/17 03/05/17 Range/Units 12:45 17:00 21:32 RBC (4.30-5.90) m/uL Hgb (13.0-17.5) gm/dL Hct (39.0-53.0) % Lymphocytes # (1.0-4.8) k/uL Carbon Dioxide (22-30) mmol/L Glucose (74-99) mg/dL POC Glucose (mg/dL) 136 H 146 H 128 H (75-99) mg/dL AST (17-59) U/L ALT (21-72) U/L Alkaline Phosphatase (38-126) U/L Total Protein (6.3-8.2) g/dL Albumin (3.5-5.0) g/dL 03/06/17 03/06/17 03/06/17 Range/Units 04:51 04:51 07:25 RBC 3.58 L (4.30-5.90) m/uL Hgb 10.4 L (13.0-17.5) gm/dL Hct 31.6 L (39.0-53.0) % Lymphocytes # 0.4 L (1.0-4.8) k/uL Carbon Dioxide 20 L (22-30) mmol/L Glucose 134 H (74-99) mg/dL POC Glucose (mg/dL) 158 H (75-99) mg/dL AST 77 H (17-59) U/L ALT 130 H (21-72) U/L Alkaline Phosphatase 146 H (38-126) U/L Total Protein 6.2 L (6.3-8.2) g/dL Albumin 3.3 L (3.5-5.0) g/dL Microbiology - Last 24 Hours (Table) 03/04/17 09:37 Blood Culture - Preliminary Blood No Growth after 48 hours 03/04/17 20:04 Blood Culture - Preliminary Blood No Growth after 24 hours 03/04/17 12:10 Urine Culture - Final Urine,Clean Catch Assessment and Plan Assessment: Impression: #1 Cholelithiasis status post laparoscopic cholecystectomy, postoperative day # 3. #2 Febrile illness of unclear etiology. Urine and blood cultures growth to date. Sputum culture pending. #3 Postoperative atelectasis as an expected post surgical condition. #4 Pulmonary nodules noted on computed tomography scan of the abdomen including a 7 mm subpleural nodule in the left upper lobe, 6 mm subpleural pulmonary nodule in the right middle lobe. #5 Remote history of chronic tobacco dependence. #6 History of aortic valve replacement utilizing a tissue valve. #7 Obstructive sleep apnea, utilizing CPAP in the outpatient setting. #8 Morbid obesity. #9 Hypertension. #10 Diabetes mellitus. #11 Osteoarthritis. Plan: The patient was seen and evaluated by Dr. Youngblood. We have encouraged the increased use of the incentive spirometer, continue bronchodilators, obtain a sputum sample. Increase his activity as tolerated. He remains on antibiotics in the form of ertapenem. We will continue to follow and make further recommendations based on his clinical status. I, the cosigning physician, have performed a history and physical examination on the patient. Lung sounds have few scattered. Maintaining good O2 saturations in the 90s on 3 L/m per nasal cannula. I have discussed the assessment and plan of care with my nurse practitioner, Peri Vann. I attest to the above consult as dictated by her.
[2017-03-06] MEDS: SODIUM CHLORIDE 0.9% 1,000 ML IV SCH (13:06)
[2017-03-06 17:30] LABS: Glucose,Whole Blood 170 mg/dL (75-99)
[2017-03-06] MEDS: LATANOPROST 0.005% OPHTH DROPS 2.5 ML BTL BOTH EYES SCH (20:17)
[2017-03-06] MEDS: BISACODYL 10 MG SUPP RECTAL SCH (20:18)
--- NOTE | 2017-03-06 21:34 | P.PN ---
Subjective Progress Note Date: 03/06/17 Principal diagnosis: Shortness of breath This is a 71-year-old male patient who presented to hospital on March 02 with complaints of abdominal pain. CT angiography of the chest and abdomen and pelvis revealed no evidence of aortic dissection or aneurysm. Mild mesenteric inflammation adjacent to the gallbladder correlate for cholecystitis. Nonspecific [place] mesentery in the mid abdomen may be related to the inflammatory process such as mesenteric panniculitis. Multiple pulmonary nodules. Abdominal ultrasound showed cholelithiasis with dilation of the common bile duct. Gallbladder wall thickening correlate for cholecystitis. Correlate for fatty infiltration of the liver. On March 03, patient underwent laparoscopic cholecystectomy. 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 Patient did have post op urinary retention and required straight cath. He did have burning with urination for a couple of times after straight cath but this has cleared. Urinalysis was clear with nitrate negative and leukoesterase small, RBCs 15 and WBC 13. His white count has been 6.1. Patient has been running fevers up to 102.5 since March 02 intermittently but consistently since the evening of March 04. Noted his AST is 90 and ALT 118. Chest x-ray done today shows scattered areas of linear subsegmental atelectasis areas no focal consolation, COPD. Patient has been using his incentive spirometry at at least 1500 ML's. He has been ambulating in the hallways without difficulty. He is tolerating full liquid diet. He denies any significant abdominal pain. He does state that he uses a CPAP at night and he has congestion in his chest every morning for which he coughs up phlegm. Sputum cultures in progress. Some improvement with the Tussionex. Fever this morning but now feeling better this afternoon. Abdominal pain is improved. Eating somewhat better. Objective - Vital Signs Vital signs: Vital Signs Temp 99.7 F H 03/06/17 15:00 Pulse 92 03/06/17 20:35 Resp 18 03/06/17 15:00 BP 196/86 03/06/17 15:00 Pulse Ox 91 L 03/06/17 15:00 T-max of 101 Intake & Output 03/06/17 03/06/17 03/07/17 06:59 18:59 06:59 Intake Total 200 700 Output Total 120 850 Balance 80 -150 Intake: Intake, IV Titration 700 Amount Meropenem 1 gm In Sodium 100 Chloride 0.9% 100 ml @ 100 mls/hr IVPB Q8HR [facility] Rx#:[id number] Sodium Chloride 0.9% 1, 600 000 ml @ 50 mls/hr IV . Q20H [facility] Rx#:[id number] Oral 200 Output: Drainage 120 Right 120 Urine 850 Other: # Voids 1 # Bowel Movements 1 - Exam Gen: This is a morbidly obese 71-year-old male patient. He is sitting up in a chair at the bedside and appears to be in no acute distress. HEENT: Head is atraumatic, normocephalic. Pupils equal, round. Sclerae is anicteric. Conjunctiva pink. Mucous membranes of the mouth are moist. NECK: Supple. No JVD. No lymphadenopathy. No thyromegaly. LUNGS: Clear to auscultation. No wheezes or rhonchi. No intercostal retractions. HEART: Regular rate and rhythm. Systolic murmur. ABDOMEN: Soft. Bowel sounds are present. No masses. No tenderness. Puncture wounds noted to have mild erythema but no drainage. Edges are well approximated. EXTREMITIES: No pedal edema. No calf tenderness. Dorsalis pedis +2 bilaterally. NEUROLOGICAL: Patient is awake, alert and oriented x3. - Labs CBC & Chem 7: 03/06/17 04:51 03/06/17 04:51 Labs: Abnormal Lab Results - Last 24 Hours (Table) 03/05/17 03/05/17 03/06/17 Range/Units 07:45 21:32 04:51 RBC 3.58 L (4.30-5.90) m/uL Hgb 10.4 L (13.0-17.5) gm/dL Hct 31.6 L (39.0-53.0) % Lymphocytes # 0.4 L (1.0-4.8) k/uL Carbon Dioxide (22-30) mmol/L Glucose (74-99) mg/dL POC Glucose (mg/dL) 128 H (75-99) mg/dL Hemoglobin A1c 6.4 H (4.0-6.0) % AST (17-59) U/L ALT (21-72) U/L Alkaline Phosphatase (38-126) U/L Total Protein (6.3-8.2) g/dL Albumin (3.5-5.0) g/dL 03/06/17 03/06/17 03/06/17 Range/Units 04:51 07:25 12:29 RBC (4.30-5.90) m/uL Hgb (13.0-17.5) gm/dL Hct (39.0-53.0) % Lymphocytes # (1.0-4.8) k/uL Carbon Dioxide 20 L (22-30) mmol/L Glucose 134 H (74-99) mg/dL POC Glucose (mg/dL) 158 H 181 H (75-99) mg/dL Hemoglobin A1c (4.0-6.0) % AST 77 H (17-59) U/L ALT 130 H (21-72) U/L Alkaline Phosphatase 146 H (38-126) U/L Total Protein 6.2 L (6.3-8.2) g/dL Albumin 3.3 L (3.5-5.0) g/dL 03/06/17 Range/Units 17:24 RBC (4.30-5.90) m/uL Hgb (13.0-17.5) gm/dL Hct (39.0-53.0) % Lymphocytes # (1.0-4.8) k/uL Carbon Dioxide (22-30) mmol/L Glucose (74-99) mg/dL POC Glucose (mg/dL) 170 H (75-99) mg/dL Hemoglobin A1c (4.0-6.0) % AST (17-59) U/L ALT (21-72) U/L Alkaline Phosphatase (38-126) U/L Total Protein (6.3-8.2) g/dL Albumin (3.5-5.0) g/dL Microbiology - Last 24 Hours (Table) 03/04/17 09:37 Blood Culture - Preliminary Blood No Growth after 48 hours 03/04/17 20:04 Blood Culture - Preliminary Blood No Growth after 24 hours Laboratory Results WBC 6.5 k/uL (3.8-10.6) 03/06/17 04:51 RBC 3.58 m/uL (4.30-5.90) L 03/06/17 04:51 Hgb 10.4 gm/dL (13.0-17.5) L 03/06/17 04:51 Hct 31.6 % (39.0-53.0) L 03/06/17 04:51 MCV 88.2 fL (80.0-100.0) 03/06/17 04:51 MCH 29.0 pg (25.0-35.0) 03/06/17 04:51 MCHC 32.9 g/dL (31.0-37.0) 03/06/17 04:51 RDW 13.9 % (11.5-15.5) 03/06/17 04:51 Plt Count 219 k/uL (150-450) 03/06/17 04:51 Neutrophils % 82 % 03/06/17 04:51 Lymphocytes % 6 % 03/06/17 04:51 Monocytes % 5 % 03/06/17 04:51 Eosinophils % 4 % 03/06/17 04:51 Basophils % 1 % 03/06/17 04:51 Neutrophils # 5.3 k/uL (1.3-7.7) 03/06/17 04:51 Lymphocytes # 0.4 k/uL (1.0-4.8) L 03/06/17 04:51 Monocytes # 0.4 k/uL (0-1.0) 03/06/17 04:51 Eosinophils # 0.3 k/uL (0-0.7) 03/06/17 04:51 Basophils # 0.0 k/uL (0-0.2) 03/06/17 04:51 Sodium 140 mmol/L (137-145) 03/06/17 04:51 Potassium 4.2 mmol/L (3.5-5.1) 03/06/17 04:51 Chloride 107 mmol/L (98-107) 03/06/17 04:51 Carbon Dioxide 20 mmol/L (22-30) L 03/06/17 04:51 Anion Gap 13 mmol/L 03/06/17 04:51 BUN 9 mg/dL (9-20) 03/06/17 04:51 Creatinine 1.10 mg/dL (0.66-1.25) 03/06/17 04:51 Est GFR (MDRD) Af Amer >60 (>60 ml/min/1.73 sqM) 03/06/17 04:51 Est GFR (MDRD) Non-Af >60 (>60 ml/min/1.73 sqM) 03/06/17 04:51 Glucose 134 mg/dL (74-99) H 03/06/17 04:51 POC Glucose (mg/dL) 170 mg/dL (75-99) H 03/06/17 17:24 POC Glu Procurement Manager ID Milana Waldrop 03/06/17 17:[address] Glu mg/dL 137 03/05/17 07:45 Hemoglobin A1c 6.4 % (4.0-6.0) H 03/05/17 07:45 Plasma Lactic Acid Sushil 0.8 mmol/L (0.7-2.0) 03/06/17 04:51 Calcium 8.7 mg/dL (8.4-10.2) 03/06/17 04:51 Total Bilirubin 0.8 mg/dL (0.2-1.3) 03/06/17 04:51 AST 77 U/L (17-59) H 03/06/17 04:51 ALT 130 U/L (21-72) H 03/06/17 04:51 Alkaline Phosphatase 146 U/L (38-126) H 03/06/17 04:51 Total Protein 6.2 g/dL (6.3-8.2) L 03/06/17 04:51 Albumin 3.3 g/dL (3.5-5.0) L 03/06/17 04:51 Amylase 60 U/L (30-110) 03/02/17 02:21 Lipase 323 U/L (23-300) H 03/02/17 02:21 Urine Color Yellow 03/04/17 12:10 Urine Appearance Clear (Clear) 03/04/17 12:10 Urine pH 5.5 (5.0-8.0) 03/04/17 12:10 Ur Specific [place] 1.012 (1.001-1.035) 03/04/17 12:10 Urine Protein Trace (Negative) H 03/04/17 12:10 Urine Glucose (UA) Trace (Negative) H 03/04/17 12:10 Urine Ketones Negative (Negative) 03/04/17 12:10 Urine Blood Moderate (Negative) H 03/04/17 12:10 Urine Nitrite Negative (Negative) 03/04/17 12:10 Urine Bilirubin Negative (Negative) 03/04/17 12:10 Urine Urobilinogen <2.0 mg/dL (<2.0) 03/04/17 12:10 Ur Leukocyte Esterase Small (Negative) H 03/04/17 12:10 Urine RBC 15 /hpf (0-5) H 03/04/17 12:10 Urine WBC 13 /hpf (0-5) H 03/04/17 12:10 Urine Mucus Rare /hpf (None) H 03/04/17 12:10 Microbiology 03/04/17 09:37 Blood Blood Culture - Preliminary No Growth after 48 hours 03/04/17 20:04 Blood Blood Culture - Preliminary No Growth after 24 hours 03/04/17 12:10 Urine,Clean Catch Urine Culture - Final - Imaging and Cardiology CT scan - chest: image reviewed (Last x-ray potential small areas of atelectasis without infiltrate) Assessment and Plan (1) Acute cholecystitis Current Visit: Yes Status: Acute Code(s): K81.0 - ACUTE CHOLECYSTITIS SNOMED Code(s): 83833376 (2) Fever Current Visit: Yes Status: Acute Code(s): R50.9 - FEVER, UNSPECIFIED SNOMED Code(s): 707526807 (3) Ascending cholangitis Narrative/Plan: 71-year-old male presents to Hospital significant abdominal pain and eventually a cholecystectomy is performed. Was doing well but then developed significant fever in the postoperative time frame. AST ALT had increased normal bilirubin was noted. Potential for ascending cholangitis as the etiology of fever and antimicrobial therapy is changed to meropenem. It appears to be having an improvement of his fever this afternoon. He is also feeling slightly better. We'll continue current antibiotic therapy. He is being followed closely by surgery. He's also been seen by pulmonary critical care. Some minimal atelectasis was noticed the most recent chest x-ray. He understands the importance of his incentive sprouted. He is also using his CPAP when he is sleeping. Encouraged some walking if at all possible. Continue to monitor cultures. Current Visit: Yes Status: Acute Code(s): K83.0 - CHOLANGITIS SNOMED Code( s): 30800470
[2017-03-06 21:54] LABS: Glucose,Whole Blood 245 mg/dL (75-99)
[2017-03-07] MEDS: IPRATROPIUM-ALBUTEROL 3 ML NEB INHALATION SCH ×5 (04:00→20:35)
[2017-03-07] MEDS: SODIUM CHLORIDE 0.9% 1,000 ML IV SCH ×2 (05:36→21:51)
[2017-03-07 07:54] LABS: Glucose,Whole Blood 156 mg/dL (75-99)
[2017-03-07] MEDS: MEROPENEM 1 GM in SODIUM CHLORIDE 0.9% 100 ML IVPB SCH ×3 (07:55→23:29)
[2017-03-07] MEDS: PANTOPRAZOLE 40 MG/10 ML VIAL IVP SCH (07:55)
[2017-03-07] MEDS: HEPARIN SODIUM,PORCINE 5,000 UNIT/ML 1 ML VIAL SQ SCH ×3 (07:55→21:45)
[2017-03-07] MEDS: ASPIRIN 81 MG PO SCH (07:56)
[2017-03-07] MEDS: LISINOPRIL 20 MG TAB PO SCH ×2 (07:56→21:50)
[2017-03-07] MEDS: DOCUSATE 100 MG CAP PO SCH ×2 (07:56→21:45)
[2017-03-07] MEDS: LABETALOL 200 MG TAB PO SCH ×2 (07:56→21:50)
[2017-03-07] MEDS: LINAGLIPTIN 5 MG TABLET PO SCH (07:56)
[2017-03-07 08:01] LABS: Basophils % (A) 0 %; Eosinophils # (A) 0.2 k/uL (0-0.7); Eosinophils % (A) 3 %; HCT 32.1 % (39.0-53.0); HGB 10.5 gm/dL (13.0-17.5); Lymphocytes # (A) 0.5 k/uL (1.0-4.8); Lymphocytes % (A) 7 %; MCH 29.4 pg (25.0-35.0); MCHC 32.8 g/dL (31.0-37.0); MCV 89.8 fL (80.0-100.0); Mean Platelet Volume 7.3; Monocytes # (A) 0.4 k/uL (0-1.0); Monocytes % (A) 5 %; Neutrophils # (A) 6.4 k/uL (1.3-7.7); Neutrophils % (A) 83 %; Platelet Count 243 k/uL (150-450); RBC 3.57 m/uL (4.30-5.90); WBC 7.7 k/uL (3.8-10.6)
[2017-03-07 08:14] LABS: ALT 102 U/L (21-72); AST 41 U/L (17-59); Albumin 3.3 g/dL (3.5-5.0); Alkaline Phosphatase 152 U/L (38-126); Anion Gap 12 mmol/L; Blood Urea Nitrogen 9 mg/dL (9-20); Calcium 9.2 mg/dL (8.4-10.2); Carbon Dioxide 25 mmol/L (22-30); Chloride 104 mmol/L (98-107); Glucose 153 mg/dL (74-99); Potassium 4.5 mmol/L (3.5-5.1); Sodium 141 mmol/L (137-145); Total Bilirubin 0.6 mg/dL (0.2-1.3); Total Protein 6.1 g/dL (6.3-8.2)
[2017-03-07] MEDS: INSULIN ASPART 100 UNIT/ML 1 ML 10 ML VIAL SQ SCH ×4 (08:27→21:53)
[2017-03-07 12:01] LABS: Glucose,Whole Blood 310 mg/dL (75-99)
--- NOTE | 2017-03-07 12:04 | P.PN ---
Subjective Progress Note Date: 03/07/17 Principal diagnosis: Cholecystitis Patient says he feels better. He did have a temperature last night of 101.1 although fevers seem to be improving overall. White blood cell count 7.7. Liver enzymes slightly decreased. MARIA DOLORES drain remained serous. Only mild pain at the drain site when he takes a deep breath. Objective - Vital Signs Vital signs: Vital Signs Temp 98.5 F 03/07/17 07:00 Pulse 90 03/07/17 11:29 Resp 18 03/07/17 07:00 BP 182/88 03/07/17 07:00 Pulse Ox 92 L 03/07/17 07:33 Intake & Output 03/06/17 03/07/17 03/07/17 18:59 06:59 18:59 Intake Total 700 400 Output Total 850 60 250 Balance -150 340 -250 Intake: Intake, IV Titration 700 Amount Meropenem 1 gm In Sodium 100 Chloride 0.9% 100 ml @ 100 mls/hr IVPB Q8HR [facility] Rx#:[id number] Sodium Chloride 0.9% 1, 600 000 ml @ 50 mls/hr IV . Q20H [facility] Rx#:[id number] Oral 400 Output: Drainage 60 Right 60 Urine 850 250 Other: Voiding Method Urinal # Voids 1 - Exam Abdomen: Soft, nondistended, incisions clean and dry, MARIA DOLORES serous - Labs CBC & Chem 7: 03/07/17 07:19 03/07/17 07:19 Labs: Abnormal Lab Results - Last 24 Hours (Table) 03/05/17 03/06/17 03/06/17 Range/Units 07:45 12:29 17:24 RBC (4.30-5.90) m/uL Hgb (13.0-17.5) gm/dL Hct (39.0-53.0) % Lymphocytes # (1.0-4.8) k/uL Glucose (74-99) mg/dL POC Glucose (mg/dL) 181 H 170 H (75-99) mg/dL Hemoglobin A1c 6.4 H (4.0-6.0) % ALT (21-72) U/L Alkaline Phosphatase (38-126) U/L Total Protein (6.3-8.2) g/dL Albumin (3.5-5.0) g/dL 03/06/17 03/07/1703/07/18 Range/Units 21:30 07:19 07:19 RBC 3.57 L (4.30-5.90) m/uL Hgb 10.5 L (13.0-17.5) gm/dL Hct 32.1 L (39.0-53.0) % Lymphocytes # 0.5 L (1.0-4.8) k/uL Glucose 153 H (74-99) mg/dL POC Glucose (mg/dL) 245 H (75-99) mg/dL Hemoglobin A1c (4.0-6.0) % ALT 102 H (21-72) U/L Alkaline Phosphatase 152 H (38-126) U/L Total Protein 6.1 L (6.3-8.2) g/dL Albumin 3.3 L (3.5-5.0) g/dL 03/07/17 03/07/17 Range/Units 07:23 11:41 RBC (4.30-5.90) m/uL Hgb (13.0-17.5) gm/dL Hct (39.0-53.0) % Lymphocytes # (1.0-4.8) k/uL Glucose (74-99) mg/dL POC Glucose (mg/dL) 156 H 310 H (75-99) mg/dL Hemoglobin A1c (4.0-6.0) % ALT (21-72) U/L Alkaline Phosphatase (38-126) U/L Total Protein (6.3-8.2) g/dL Albumin (3.5-5.0) g/dL Microbiology - Last 24 Hours (Table) 03/04/17 09:37 Blood Culture - Preliminary Blood No Growth after 72 hours 03/04/17 20:04 Blood Culture - Preliminary Blood No Growth after 48 hours Assessment and Plan (1) Acute cholecystitis Narrative/Plan: Continue antibiotics. Repeat labs tomorrow. Ambulate. Continue pulmonary toilet. Current Visit: Yes Status: Acute Code(s): K81.0 - ACUTE CHOLECYSTITIS SNOMED Code(s): 85883336
--- NOTE | 2017-03-07 12:29 | P.PN ---
Subjective Progress Note Date: 03/07/17 Principal diagnosis: acute cholelithiasis, status post laparoscopic cholecystectomy. This is a very pleasant 71-year-old gentleman who follows with Dr. Santos as his primary care physician. He has a history of diabetes mellitus, hypertension , osteoarthritis, morbid obesity, previous aortic valve replacement, porcine. He also has a history of obstructive sleep apnea and utilizes a CPAP machine in the outpatient setting. He has not been seen by a authorizer in the past. He has a remote history of chronic tobacco use. No evidence of COPD. No oxygen or inhalers in the outpatient setting. He presented here to the emergency room on 03/02/2017 with complaints of abdominal pain. It started a few days prior to his arrival. His discomfort had caused him to have high blood pressure 200/100 at home he became concerned and was seen in the ER. A computed tomography scan performed in the emergency room revealed evidence of mild mesenteric inflammation adjacent to the gallbladder. There is also an inflammatory process mid abdomen suggestive of mesentery panniculitis. Of note there are multiple pulmonary nodules there was noted atelectasis/scarring in the lower lobes bilaterally. There was a 7 mm subpleural nodule left upper lobe , 6 mm subpleural nodule in the right middle lobe. An ultrasound of the gallbladder did reveal evidence of cholelithiasis with dilation and common bile duct measuring 0.7 cm. It subsequently undergone a laparoscopic cholecystectomy on 03/03/2017. This is postoperative day #2. The patient has developed increasing shortness of breath, cough and congestion. He is also developed a fever with a T-max of 101.2 this morning. He is maintaining good O2 saturations in the low 90s on room air. Chest x-ray shows evidence of scattered linear subsegmental atelectasis. No clear evidence of focal consolidation or pneumonia. There is some COPD appreciated. He is seen today in consultation on the regular medical floor. He is awake and alert in no acute distress. He is sitting up in a chair at the bedside. He is working well at the incentive spirometer pulling approximately 1500 mL's. He's been up ambulating with assistance. He has been initiated on DuoNeb inhalations every 4 hours. He is on antibiotics in the form of Unasyn. Blood, urine and sputum cultures are pending. Leukocytosis. Hemoglobin 10.5. There has been a rise in his liver enzymes currently AST 90, ALT 118 She is seen again today 03/06/2017 in follow-up on the regular medical floor. He is awake and alert in no acute distress. Currently sitting up in the chair at the bedside. Maintaining good O2 saturations in the 90s on room air. He did have an episode of waking up with his CPAP in place feeling quite short of breath and needed to sit up to regain his breath. He has had ongoing issues with fevers. 101.2 again this morning. Blood and urine cultures reveal no growth to date. His cough is nonproductive thus far. No leukocytosis. He remains on meropenem. Hemoglobin 10.4. Liver enzymes continue to rise, AST 77 , ALT 130, alk phos 146. Continues to work well with his incentive spirometer. He's up with assistance. Reevaluated today on 03/07/2017, patient is doing relatively well, good job with the incentive spirometry, has some pain upon movement in the right upper quadrant area and right posterior chest, but no shortness of breath, no cough, no wheezing. Patient is maintaining good O2 saturation on room air. Continues to use BiPAP at night.had low-grade temp last night, presently afebrile.CBC is relatively normal and basic metabolic profile is normal. Liver enzymes were noted to be a bit elevated. Objective - Vital Signs Vital signs: Vital Signs Temp 98.5 F 03/07/17 07:00 Pulse 90 03/07/17 11:29 Resp 18 03/07/17 07:00 BP 182/88 03/07/17 07:00 Pulse Ox 92 L 03/07/17 07:33 Intake & Output 03/06/17 03/07/17 03/07/17 18:59 06:59 18:59 Intake Total 700 400 Output Total 850 60 250 Balance -150 340 -250 Intake: Intake, IV Titration 700 Amount Meropenem 1 gm In Sodium 100 Chloride 0.9% 100 ml @ 100 mls/hr IVPB Q8HR [facility] Rx#:[id number] Sodium Chloride 0.9% 1, 600 000 ml @ 50 mls/hr IV . Q20H [facility] Rx#:[id number] Oral 400 Output: Drainage 60 Right 60 Urine 850 250 Other: Voiding Method Urinal # Voids 1 - Exam GENERAL EXAM: Obese. Alert, active, comfortable in no apparent distress. HEAD: Normocephalic. EYES: Normal reaction of pupils, equal size. NOSE: Clear with pink turbinates. THROAT: There is crowding of the posterior pharynx. No erythema or exudates. NECK: Short. No masses, no JVD. CHEST: No chest wall deformity. LUNGS: Equal air entry with no crackles, wheeze, rhonchi or dullness. CVS: S1 and S2 normal with an audible murmur, regular rhythm. ABDOMEN: No hepatosplenomegaly, normal bowel sounds, no guarding or rigidity. Surgical sites clean dry and well approximated. MARIA DOLORES drain remains in place. SPINE: No scoliosis or deformity SKIN: No rashes CENTRAL NERVOUS SYSTEM: No focal deficits, tone is normal in all 4 extremities. EXTREMITIES: There is no peripheral edema. No clubbing, no cyanosis. Peripheral pulses are intact. - Labs CBC & Chem 7: 03/07/17 07:19 03/07/17 07:19 Labs: Abnormal Lab Results - Last 24 Hours (Table) 03/05/17 03/06/17 03/06/17 Range/Units 07:45 12:29 17:24 RBC (4.30-5.90) m/uL Hgb (13.0-17.5) gm/dL Hct (39.0-53.0) % Lymphocytes # (1.0-4.8) k/uL Glucose (74-99) mg/dL POC Glucose (mg/dL) 181 H 170 H (75-99) mg/dL Hemoglobin A1c 6.4 H (4.0-6.0) % ALT (21-72) U/L Alkaline Phosphatase (38-126) U/L Total Protein (6.3-8.2) g/dL Albumin (3.5-5.0) g/dL 03/06/17 03/07/17 03/07/17 Range/Units 21:30 07:19 07:19 RBC 3.57 L (4.30-5.90) m/uL Hgb 10.5 L (13.0-17.5) gm/dL Hct 32.1 L (39.0-53.0) % Lymphocytes # 0.5 L (1.0-4.8) k/uL Glucose 153 H (74-99) mg/dL POC Glucose (mg/dL) 245 H (75-99) mg/dL Hemoglobin A1c (4.0-6.0) % ALT 102 H (21-72) U/L Alkaline Phosphatase 152 H (38-126) U/L Total Protein 6.1 L (6.3-8.2) g/dL Albumin 3.3 L (3.5-5.0) g/dL 03/07/17 03/07/17 Range/Units 07:23 11:41 RBC (4.30-5.90) m/uL Hgb (13.0-17.5) gm/dL Hct (39.0-53.0) % Lymphocytes # (1.0-4.8) k/uL Glucose (74-99) mg/dL POC Glucose (mg/dL) 156 H 310 H (75-99) mg/dL Hemoglobin A1c (4.0-6.0) % ALT (21-72) U/L Alkaline Phosphatase (38-126) U/L Total Protein (6.3-8.2) g/dL Albumin (3.5-5.0) g/dL Microbiology - Last 24 Hours (Table) 03/04/17 09:37 Blood Culture - Preliminary Blood No Growth after 72 hours 03/04/17 20:04 Blood Culture - Preliminary Blood No Growth after 48 hours Assessment and Plan Assessment: #1 acute Cholelithiasis status post laparoscopic cholecystectomy, postoperative day #4 #2 Febrile illness of unclear etiology. Urine and blood cultures growth to date. Sputum culture pending. #3 Postoperative atelectasis as an expected post surgical condition. #4 Pulmonary nodules noted on computed tomography scan of the abdomen including a 7 mm subpleural nodule in the left upper lobe, 6 mm subpleural pulmonary nodule in the right middle lobe.could be monitored on outpatient basis #5 Remote history of chronic tobacco dependence. #6 History of aortic valve replacement utilizing a tissue valve. #7 Obstructive sleep apnea, utilizing CPAP in the outpatient setting. #8 Morbid obesity. #9 Hypertension. #10 Diabetes mellitus. #11 Osteoarthritis. Recommendation: Continue incentive spirometry, bronchodilators, BiPAP as needed specially at night when he goes to bed, antibiotics as per infectious disease on the case, possible discharge planning in the next 24 hours if he continues to do well. Time with Patient: Less than 30
[2017-03-07] MEDS: ACETAMINOPHEN TAB 325 MG TAB PO PRN (17:48)
[2017-03-07 17:58] LABS: Glucose,Whole Blood 167 mg/dL (75-99)
[2017-03-07] MEDS ORDERED: IPRATROPIUM-ALBUTEROL 3 ML NEB INHALATION PRN (20:41)
[2017-03-07 20:49] LABS: Glucose,Whole Blood 245 mg/dL (75-99)
[2017-03-07] MEDS: LATANOPROST 0.005% OPHTH DROPS 2.5 ML BTL BOTH EYES SCH (21:51)
[2017-03-07] MEDS: BISACODYL 10 MG SUPP RECTAL SCH (21:54)
[2017-03-07] MEDS: HYDROcodone/APAP 5-325MG 1 EACH TAB PO PRN (23:38)
[2017-03-08 07:37] LABS: Glucose,Whole Blood 154 mg/dL (75-99)
[2017-03-08] MEDS: MEROPENEM 1 GM in SODIUM CHLORIDE 0.9% 100 ML IVPB SCH ×3 (08:10→23:47)
[2017-03-08] MEDS: PANTOPRAZOLE 40 MG/10 ML VIAL IVP SCH (08:11)
[2017-03-08] MEDS: HYDROcodone/APAP 5-325MG 1 EACH TAB PO PRN (08:11)
[2017-03-08] MEDS: DOCUSATE 100 MG CAP PO SCH ×2 (08:11→22:21)
[2017-03-08] MEDS: LINAGLIPTIN 5 MG TABLET PO SCH (08:11)
[2017-03-08] MEDS: HEPARIN SODIUM,PORCINE 5,000 UNIT/ML 1 ML VIAL SQ SCH ×3 (08:11→22:21)
[2017-03-08] MEDS: LABETALOL 200 MG TAB PO SCH ×2 (08:11→22:21)
[2017-03-08] MEDS: ASPIRIN 81 MG PO SCH (08:11)
[2017-03-08] MEDS: LISINOPRIL 20 MG TAB PO SCH ×2 (08:11→22:21)
[2017-03-08] MEDS: INSULIN ASPART 100 UNIT/ML 1 ML 10 ML VIAL SQ SCH ×4 (08:15→22:39)
[2017-03-08] MEDS: IPRATROPIUM-ALBUTEROL 3 ML NEB INHALATION SCH ×4 (08:47→20:20)
--- NOTE | 2017-03-08 09:05 | XR ---
EXAMINATION TYPE: XR chest 2V DATE OF EXAM: 03/08/2017 COMPARISON: 03/05/2017 HISTORY: 71-year-old male bibasilar atelectasis/fever TECHNIQUE: Frontal and lateral views FINDINGS: Heart normal size. Bands of atelectasis are present in the mid and lower left lung opacity is somewha t more patchy in the left base. Median sternotomy wires. IMPRESSION: Redemonstrated bands of mid and lower lung areas of atelectasis. Opacity is somewhat more patchy now at the left base and early developing pneumonia is difficult to exclude. Follow-up recommended.
[2017-03-08] MEDS ORDERED: RX INFO: IV CONTRAST WAS GIVEN 1 EACH MISC MISCELLANE PRN (09:17)
--- NOTE | 2017-03-08 09:32 | P.PN ---
<Carla Mcginnis - Last Filed: 03/08/17 09:16> Subjective Progress Note Date: 03/08/17 71-year-old male seen and examined. Sitting up in a chair taking a diet. Patient reports continues to have persistent right upper quadrant pain radiates to the back increased discomfort with deep breath. Patient continues the IS achieve 1000. MARIA DOLORES drain serous drainage noted reports no nausea no vomiting. being followed by infectious disease. recommendations for IV antibiotics per infectious disease states he has been up ambulating in the [place] had one bowel movement this morning ALT 102 alk phos 152 temp 99.8 at 11: 00 last night postop March 03 laparscopic cholecystectomy for right upper quadrant pain acute on chronic calculus cholecystitis Objective - Vital Signs Vital signs: Vital Signs Temp 98.6 F 03/08/17 07:00 Pulse 88 03/08/17 08:58 Resp 14 03/08/17 08:58 BP 167/72 03/08/17 07:00 Pulse Ox 91 L 03/08/17 08:47 Intake & Output 03/07/17 03/08/17 03/08/17 18:59 06:59 18:59 Output Total 660 950 60 Balance -660 -950 -60 Output: Drainage 110 60 Right 110 60 Urine 550 950 Other: Voiding Method Urinal - Exam physical exam 71-year-old male sitting in a chair pleasant states that he takes in a deep breath has increased pain right upper quadrant Lungs adequate air movement bilaterally on room air sats are 91% no shortness of breath with conversation reports coughing up clear secretions Heart S1-S2 audible regular denying chest pain Abdomen obese slightly distended surgical tenderness appropriate surgical dressings to surgical site dry MARIA DOLORES drain in place serous drainage noted bowel tones present denies nausea vomiting No stool reports no difficulty in urinating Extremities no edema - Labs CBC & Chem 7: 03/07/17 07:19 03/07/17 07:19 Labs: Abnormal Lab Results - Last 24 Hours (Table) 03/07/17 03/07/17 03/07/17 Range/Units 11:41 17:08 20:40 POC Glucose (mg/dL) 310 H 167 H 245 H (75-99) mg/dL 03/08/17 Range/Units 07:21 POC Glucose (mg/dL) 154 H (75-99) mg/dL Microbiology - Last 24 Hours (Table) 03/07/17 14:30 Gram Stain - Preliminary Sputum Sputum Culture - Preliminary 03/04/17 20:04 Blood Culture - Preliminary Blood No Growth after 72 hours 03/04/17 09:37 Blood Culture - Preliminary Blood No Growth after 72 hours Assessment and Plan Assessment: Impression Present on admission right upper quadrant pain suspect due to acute cholecystitis Ultrasound of the abdomen gallbladder wall thickening correlate for cholecystitis with gallstones morbid obesity BMI 39 history of an aortic valve replacement 2 years prior obstructive sleep apnea with CPAP therapy Present on admission accelerated hypertension March 03 laparoscopic cholecystectomy for acute on chronic calculus cholecystitis Postop febrile Postop urinary retention unexpected post surgical condition resolved Acute on chronic calculus cholecystitis Mildly elevated liver enzymes possible due to ascending cholangitis as a source of the fever Plan Consult GI for mildly elevated liver enzymes Computed tomography scan abdomen pelvis and chest IV contrast now Will discuss with infectious disease recommendations antibiotics Advance diet to full liquid DuoNeb respiratory treatments to be initiated Increase activity Blood cultures now follow up on results Continue Unasyn as ordered Repeat labs in the morning Pain control use incentive spirometer every 1 hour while awake DVT and GI prophylaxis Progress note dictated for Dr. cantu The above impression and plan of care have been discussed and directed by signing physician. Carla Mcginnis nurse practitioner acting as scribe for signing physician. <Brittany Cantu - Last Filed: 03/08/17 13:02> Subjective Acute on chronic necrotizing cholecystitis. Normal bilirubin but elevated LFTs post op - expected after gallbladder removal surgery Patient has had post op fevers but no leucocytosis. Cultures- no growth CT chest/abd/pelvis with IV contrast IV Meropenem as per ID - chnage to po ABX DIscussed findings with pulmology regarding CT chets findings PLan on DC home today on po antibiotics once cleared by pulmonology and ID MARIA DOLORES drain to stay Follow up in 1 week at [facility] in 1 week Objective - Vital Signs Vital signs: Vital Signs Temp 98.6 F 03/08/17 07:00 Pulse 70 03/08/17 12:00 Resp 16 03/08/17 12:00 BP 167/72 03/08/17 07:00 Pulse Ox 91 L 03/08/17 08:47 Intake & Output 03/07/17 03/08/17 03/08/17 18:59 06:59 18:59 Output Total 660 950 60 Balance -660 -950 -60 Output: Drainage 110 60 Right 110 60 Urine 550 950 Other: Voiding Method Urinal - Labs CBC & Chem 7: 03/07/17 07:19 03/07/17 07:19 Labs: Abnormal Lab Results - Last 24 Hours (Table) 03/07/17 03/07/17 03/08/17 Range/Units 17:08 20:40 07:21 POC Glucose (mg/dL) 167 H 245 H 154 H (75-99) mg/dL 03/08/17 Range/Units 11:44 POC Glucose (mg/dL) 169 H (75-99) mg/dL Microbiology - Last 24 Hours (Table) 03/04/17 09:37 Blood Culture - Preliminary Blood No Growth after 96 hours 03/07/17 14:30 Gram Stain - Preliminary Sputum Sputum Culture - Preliminary 03/04/17 20:04 Blood Culture - Preliminary Blood No Growth after 72 hours
--- NOTE | 2017-03-08 11:06 | CT ---
EXAMINATION TYPE: CT ChestAbdPelvis w con DATE OF EXAM: 03/08/2017 COMPARISON: March 02, 2017 HISTORY: RUQ pain, fever, recent cholecystectomy CT DLP: 2326 mGycm CONTRAST: CT scan of the chest, abdomen and pelvis is performed without Oral Contrast and with IV Contrast, pat ient injected with 100 mL of Omnipaque 300. CT Chest: LUNGS: Increasing scattered groundglass infiltrates throughout both lung busch. Increasing pleural e ffusions bilaterally. Bilateral lower lobe atelectasis right greater than left. Scattered pulmonary n odules are again seen. Follow-up in 3-6 months advised. MEDIASTINUM: Thoracic aorta is of normal caliber. The heart is not enlarged. No evidence for media stinal mass or adenopathy. HILAR STRUCTURES: No evidence for mass. No hilar adenopathy is appreciated. OTHER: No significant abnormality. CONTRAST CT ABDOMEN AND PELVIS FINDINGS: LIVER/GB: There is interval change of cholecystectomy with cholecystostomy tube in place. There is st barbara attenuation and small fluid collection at the gallbladder fossa without internal air measuring 4.0 x 2.2 cm. This may reflect postoperative seroma. Infected collection is not entirely excluded how ever. No solid intrahepatic lesions or biliary ductal dilatation at this time. Small hepatic cysts me asuring less than 1 cm identified. PANCREAS: No inflammation. No distinct mass. SPLEEN: No splenic enlargement. No lesion seen. ADRENALS: No nodule. No thickening. KIDNEYS/BLADDER: No hydronephrosis. No nephrolithiasis. Bilateral renal cysts. The largest cyst on the left measures 6.3 cm mid to lower pole. Lower pole simple cyst right kidney measures 2.5 cm.. BOWEL: Normal appendix. Normal bowel caliber. No inflammation. GENITAL ORGANS: No gross abnormality. LYMPH NODES: No greater than 1cm abdominal or pelvic lymph nodes are appreciated. AORTA: No significant abnormality. OSSEOUS STRUCTURES: No significant abnormality is seen. OTHER: Mesenteric haziness is unchanged from prior study.. IMPRESSION: 1. There is strandy attenuation and small fluid collection at the gallbladder fossa without internal air measuring 4.0 x 2.2 cm. This may reflect postoperative seroma. Infected collection is not entirel y excluded however. 2. Status post cholecystectomy with cholecystostomy tube in place. 2. Increasing groundglass infiltrates throughout both lung busch, basilar atelectasis and pleural ef fusions.
[2017-03-08 11:47] LABS: Glucose,Whole Blood 169 mg/dL (75-99)
[2017-03-08] MEDS ORDERED: FUROSEMIDE 10 MG/ML 4 ML VIAL IV STA (13:00)
--- NOTE | 2017-03-08 15:31 | P.PN ---
Subjective Progress Note Date: 03/08/17 Principal diagnosis: Acute cholelithiasis, status post laparoscopic cholecystectomy This is a very pleasant 71-year-old gentleman who follows with Dr. Santos as his primary care physician. He has a history of diabetes mellitus, hypertension , osteoarthritis, morbid obesity, previous aortic valve replacement, porcine. He also has a history of obstructive sleep apnea and utilizes a CPAP machine in the outpatient setting. 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 He has a remote history of chronic tobacco use. No evidence of COPD. No oxygen or inhalers in the outpatient setting. He presented here to the emergency room on 03/02/2017 with complaints of abdominal pain. It started a few days prior to his arrival. His discomfort had caused him to have high blood pressure 200/100 at home he became concerned and was seen in the ER. A computed tomography scan performed in the emergency room revealed evidence of mild mesenteric inflammation adjacent to the gallbladder. There is also an inflammatory process mid abdomen suggestive of mesentery panniculitis. Of note there are multiple pulmonary nodules there was noted atelectasis/scarring in the lower lobes bilaterally. There was a 7 mm subpleural nodule left upper lobe , 6 mm subpleural nodule in the right middle lobe. An ultrasound of the gallbladder did reveal evidence of cholelithiasis with dilation and common bile duct measuring 0.7 cm. It subsequently undergone a laparoscopic cholecystectomy on 03/03/2017. This is postoperative day #2. The patient has developed increasing shortness of breath, cough and congestion. He is also developed a fever with a T-max of 101.2 this morning. He is maintaining good O2 saturations in the low 90s on room air. Chest x-ray shows evidence of scattered linear subsegmental atelectasis. No clear evidence of focal consolidation or pneumonia. There is some COPD appreciated. He is seen today in consultation on the regular medical floor. He is awake and alert in no acute distress. He is sitting up in a chair at the bedside. He is working well at the incentive spirometer pulling approximately 1500 mL's. He's been up ambulating with assistance. He has been initiated on DuoNeb inhalations every 4 hours. He is on antibiotics in the form of Unasyn. Blood, urine and sputum cultures are pending. Leukocytosis. Hemoglobin 10.5. There has been a rise in his liver enzymes currently AST 90, ALT 118 She is seen again today 03/06/2017 in follow-up on the regular medical floor. He is awake and alert in no acute distress. Currently sitting up in the chair at the bedside. Maintaining good O2 saturations in the 90s on room air. He did have an episode of waking up with his CPAP in place feeling quite short of breath and needed to sit up to regain his breath. He has had ongoing issues with fevers. 101.2 again this morning. Blood and urine cultures reveal no growth to date. His cough is nonproductive thus far. No leukocytosis. He remains on meropenem. Hemoglobin 10.4. Liver enzymes continue to rise, AST 77 , ALT 130, alk phos 146. Continues to work well with his incentive spirometer. He's up with assistance. Reevaluated today on 03/07/2017, patient is doing relatively well, good job with the incentive spirometry, has some pain upon movement in the right upper quadrant area and right posterior chest, but no shortness of breath, no cough, no wheezing. Patient is maintaining good O2 saturation on room air. Continues to use BiPAP at night.had low-grade temp last night, presently afebrile.CBC is relatively normal and basic metabolic profile is normal. Liver enzymes were noted to be a bit elevated. On 03/08/2017 patient seen again in follow-up. This morning patient's FiO2 increased to 4 L per nasal cannula and O2 sat only around 92%. This morning's chest x-ray shows mid and lower lung areas of atelectasis, opacity the left base. CT chest, abdomen and pelvis showed increasing scattered groundglass infiltrates throughout both lung busch, increasing pleural effusions bilaterally, bilateral lower lobe atelectasis right greater than the left. Scattered pulmonary nodules. Strange attenuation and small fluid collection at the gallbladder fossa without internal air, that could reflect postoperative seroma, cholecystostomy tube in place. Vital signs , patient did have a low- grade fever of 99.8 last night. His chest x-ray and CT chest are consistent with a picture of fluid overload, we will give the patient a dose of IV Lasix today. Lung sounds are managed, with a few bibasilar rales. Objective - Vital Signs Vital signs: Vital Signs Temp 98.6 F 03/08/17 07:00 Pulse 70 03/08/17 12:00 Resp 16 03/08/17 12:00 BP 167/72 03/08/17 07:00 Pulse Ox 91 L 03/08/17 08:47 Intake & Output 03/07/17 03/08/17 03/08/17 18:59 06:59 18:59 Output Total 660 950 460 Balance -660 -950 -460 Output: Drainage 110 60 Right 110 60 Urine 550 950 400 Other: Voiding Method Urinal - Exam GENERAL EXAM: Obese. Alert, active, comfortable in no apparent distress. HEAD: Normocephalic. EYES: Normal reaction of pupils, equal size. NOSE: Clear with pink turbinates. THROAT: There is crowding of the posterior pharynx. No erythema or exudates. NECK: Short. No masses, no JVD. CHEST: No chest wall deformity. LUNGS: Equal air entry with a few bibasilar crackles, no rhonchi no wheezing CVS: S1 and S2 normal with an audible murmur, regular rhythm. ABDOMEN: No hepatosplenomegaly, normal bowel sounds, no guarding or rigidity. Surgical sites clean dry and well approximated. MARIA DOLORES drain remains in place. SPINE: No scoliosis or deformity SKIN: No rashes CENTRAL NERVOUS SYSTEM: No focal deficits, tone is normal in all 4 extremities. EXTREMITIES: There is no peripheral edema. No clubbing, no cyanosis. Peripheral pulses are intact. - Labs CBC & Chem 7: 03/07/17 07:19 03/07/17 07:19 Labs: Abnormal Lab Results - Last 24 Hours (Table) 03/07/17 03/07/17 03/08/17 Range/Units 17:08 20:40 07:21 POC Glucose (mg/dL) 167 H 245 H 154 H (75-99) mg/dL 03/08/17 Range/Units 11:44 POC Glucose (mg/dL) 169 H (75-99) mg/dL Microbiology - Last 24 Hours (Table) 03/07/17 14:30 Gram Stain - Preliminary Sputum Sputum Culture - Preliminary Angela albicans 03/04/17 09:37 Blood Culture - Preliminary Blood No Growth after 96 hours 03/04/17 20:04 Blood Culture - Preliminary Blood No Growth after 72 hours Assessment and Plan Plan: Assessment: #1. Acute hypoxic respiratory failure, multifactorial, underlying sleep apnea, there is a component of fluid overload evident on today's chest x-ray and CT chest abdomen and pelvis, and bronchopneumonia. Patient is already covered with meropenem, we will give 1 dose of IV Lasix today #1 acute Cholelithiasis status post laparoscopic cholecystectomy, postoperative day #5 #2 Febrile illness of unclear etiology. Urine and blood cultures growth to date. Sputum culture pending. #3 Postoperative atelectasis as an expected post surgical condition. #4 Pulmonary nodules noted on computed tomography scan of the abdomen including a 7 mm subpleural nodule in the left upper lobe, 6 mm subpleural pulmonary nodule in the right middle lobe.could be monitored on outpatient basis #5 Remote history of chronic tobacco dependence. #6 History of aortic valve replacement utilizing a tissue valve. #7 Obstructive sleep apnea, utilizing CPAP in the outpatient setting. #8 Morbid obesity. #9 Hypertension. #10 Diabetes mellitus. #11 Osteoarthritis. Recommendation: Continue incentive spirometry, bronchodilators, BiPAP as needed specially at night when he goes to bed, antibiotics as per infectious disease on the case. We'll give 1 dose of IV Lasix 40 mg IV push. Patient stable for discharge from pulmonary standpoint, outpatient antibiotics per ID service. Follow-up with Dr. Barahona in the office in one week. I performed a history & physical examination of the patient and discussed their management with my nurse practitioner, Melisa Glez. I reviewed the nurse practitioner's note and agree with the documented findings and plan of care. Lung sounds are diminished, with a few bibasilar rales. The findings and the impression was discussed with the patient. I attest to the documentation by the nurse practitioner. Time with Patient: Less than 30
[2017-03-08 17:14] LABS: Glucose,Whole Blood 156 mg/dL (75-99)
--- NOTE | 2017-03-08 20:47 | P.PN ---
Subjective Progress Note Date: 03/08/17 Principal diagnosis: Shortness of breath This is a 71-year-old male patient who presented to hospital on March 02 with complaints of abdominal pain. CT angiography of the chest and abdomen and pelvis revealed no evidence of aortic dissection or aneurysm. Mild mesenteric inflammation adjacent to the gallbladder correlate for cholecystitis. Nonspecific [place] mesentery in the mid abdomen may be related to the inflammatory process such as mesenteric panniculitis. Multiple pulmonary nodules. Abdominal ultrasound showed cholelithiasis with dilation of the common bile duct. Gallbladder wall thickening correlate for cholecystitis. Correlate for fatty infiltration of the liver. On March 03, patient underwent laparoscopic cholecystectomy. 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 Patient did have post op urinary retention and required straight cath. He did have burning with urination for a couple of times after straight cath but this has cleared. Urinalysis was clear with nitrate negative and leukoesterase small, RBCs 15 and WBC 13. His white count has been 6.1. Patient has been running fevers up to 102.5 since March 02 intermittently but consistently since the evening of March 04. Noted his AST is 90 and ALT 118. Chest x-ray done today shows scattered areas of linear subsegmental atelectasis areas no focal consolation, COPD. Patient has been using his incentive spirometry at at least 1500 ML's. He has been ambulating in the hallways without difficulty. He is tolerating full liquid diet. He denies any significant abdominal pain. He does state that he uses a CPAP at night and he has congestion in his chest every morning for which he coughs up phlegm. Sputum cultures in progress. Some improvement with the Tussionex. Fever this morning but now feeling better this afternoon. Abdominal pain is improved. Eating somewhat better. Objective - Vital Signs Vital signs: Vital Signs Temp 97.5 F L 03/08/17 15:00 Pulse 78 03/08/17 20:32 Resp 18 03/08/17 15:00 BP 183/84 03/08/17 15:00 Pulse Ox 95 03/08/17 16:20 Intake & Output 03/08/17 03/08/17 03/09/17 06:59 18:59 06:59 Output Total 950 1320 Balance -950 -1320 Output: Drainage 120 Right 120 Urine 950 1200 Other: Voiding Method Urinal # Bowel Movements 1 - Exam Gen: This is a morbidly obese 71-year-old male patient. He is sitting up in a chair at the bedside and appears to be in no acute distress. HEENT: Head is atraumatic, normocephalic. Pupils equal, round. Sclerae is anicteric. Conjunctiva pink. Mucous membranes of the mouth are moist. NECK: Supple. No JVD. No lymphadenopathy. No thyromegaly. LUNGS: Clear to auscultation. No wheezes or rhonchi. No intercostal retractions. HEART: Regular rate and rhythm. Systolic murmur. ABDOMEN: Soft. Bowel sounds are present. No masses. No tenderness. Puncture wounds noted to have mild erythema but no drainage. Edges are well approximated. EXTREMITIES: No pedal edema. No calf tenderness. Dorsalis pedis +2 bilaterally. NEUROLOGICAL: Patient is awake, alert and oriented x3. - Labs CBC & Chem 7: 03/07/17 07:19 03/07/17 07:19 Labs: Abnormal Lab Results - Last 24 Hours (Table) 03/07/17 03/08/17 03/08/17 Range/Units 20:40 07:21 11:44 POC Glucose (mg/dL) 245 H 154 H 169 H (75-99) mg/dL 03/08/17 Range/Units 16:51 POC Glucose (mg/dL) 156 H (75-99) mg/dL Microbiology - Last 24 Hours (Table) 03/07/17 14:30 Gram Stain - Preliminary Sputum Sputum Culture - Preliminary Angela albicans 03/04/17 09:37 Blood Culture - Preliminary Blood No Growth after 96 hours 03/04/17 20:04 Blood Culture - Preliminary Blood No Growth after 72 hours Laboratory Results WBC 7.7 k/uL (3.8-10.6) 03/07/17 07:19 RBC 3.57 m/uL (4.30-5.90) L 03/07/17 07:19 Hgb 10.5 gm/dL (13.0-17.5) L 03/07/17 07:19 Hct 32.1 % (39.0-53.0) L 03/07/17 07:19 MCV 89.8 fL (80.0-100.0) 03/07/17 07:19 MCH 29.4 pg (25.0-35.0) 03/07/17 07:19 MCHC 32.8 g/dL (31.0-37.0) 03/07/17 07:19 RDW 14.0 % (11.5-15.5) 03/07/17 07:19 Plt Count 243 k/uL (150-450) 03/07/17 07:19 Neutrophils % 83 % 03/07/17 07:19 Lymphocytes % 7 % 03/07/17 07:19 Monocytes % 5 % 03/07/17 07:19 Eosinophils % 3 % 03/07/17 07: Basophils % 0 % 03/07/17 07:19 Neutrophils # 6.4 k/uL (1.3-7.7) 03/07/17 07:19 Lymphocytes # 0.5 k/uL (1.0-4.8) L 03/07/17 07:19 Monocytes # 0.4 k/uL (0-1.0) 03/07/17 07:19 Eosinophils # 0.2 k/uL (0-0.7) 03/07/17 07:19 Basophils # 0.0 k/uL (0-0.2) 03/07/17 07:19 Sodium 141 mmol/L (137-145) 03/07/17 07:19 Potassium 4.5 mmol/L (3.5-5.1) 03/07/17 07:19 Chloride 104 mmol/L (98-107) 03/07/17 07:19 Carbon Dioxide 25 mmol/L (22-30) 03/07/17 07:19 Anion Gap 12 mmol/L 03/07/17 07:19 BUN 9 mg/dL (9-20) 03/07/17 07:19 Creatinine 1.10 mg/dL (0.66-1.25) 03/07/17 07:19 Est GFR (MDRD) Af Amer >60 (>60 ml/min/1.73 sqM) 03/07/17 07:19 Est GFR (MDRD) Non-Af >60 (>60 ml/min/1.73 sqM) 03/07/17 07:19 Glucose 153 mg/dL (74-99) H 03/07/17 07:19 POC Glucose (mg/dL) 156 mg/dL (75-99) H 03/08/17 16:51 POC Glu [employer] [place] 03/08/17 16:[address] Glu mg/dL 137 03/05/17 07:45 Hemoglobin A1c 6.4 % (4.0-6.0) H 03/05/17 07:45 Plasma Lactic Acid Sushil 0.8 mmol/L (0.7-2.0) 03/06/17 04:51 Calcium 9.2 mg/dL (8.4-10.2) 03/07/17 07:19 Total Bilirubin 0.6 mg/dL (0.2-1.3) 03/07/17 07:19 AST 41 U/L (17-59) 03/07/17 07:19 ALT 102 U/L (21-72) H 03/07/17 07:19 Alkaline Phosphatase 152 U/L (38-126) H 03/07/17 07:19 Total Protein 6.1 g/dL (6.3-8.2) L 03/07/17 07:19 Albumin 3.3 g/dL (3.5-5.0) L 03/07/17 07:19 Amylase 60 U/L (30-110) 03/02/17 02:21 Lipase 323 U/L (23-300) H 03/02/17 02:21 Urine Color Yellow 03/04/17 12:10 Urine Appearance Clear (Clear) 03/04/17 12:10 Urine pH 5.5 (5.0-8.0) 03/04/17 12:10 Ur Specific [place] 1.012 (1.001-1.035) 03/04/17 12:10 Urine Protein Trace (Negative) H 03/04/17 12:10 Urine Glucose (UA) Trace (Negative) H 03/04/17 12:10 Urine Ketones Negative (Negative) 03/04/17 12:10 Urine Blood Moderate (Negative) H 03/04/17 12:10 Urine Nitrite Negative (Negative) 03/04/17 12:10 Urine Bilirubin Negative (Negative) 03/04/17 12:10 Urine Urobilinogen <2.0 mg/dL (<2.0) 03/04/17 12:10 Ur Leukocyte Esterase Small (Negative) H 03/04/17 12:10 Urine RBC 15 /hpf (0-5) H 03/04/17 12:10 Urine WBC 13 /hpf (0-5) H 03/04/17 12:10 Urine Mucus Rare /hpf (None) H 03/04/17 12:10 Microbiology 03/07/17 14:30 Sputum Gram Stain - Preliminary 03/07/17 14:30 Sputum Sputum Culture - Preliminary Angela albicans 03/04/17 09:37 Blood Blood Culture - Preliminary No Growth after 96 hours 03/04/17 20:04 Blood Blood Culture - Preliminary No Growth after 72 hours 03/04/17 12:10 Urine,Clean Catch Urine Culture - Final - Imaging and Cardiology CT scan - abdomen: report reviewed, image reviewed (Minimal fluid gallbladder fossa evidence of fluid within the lung interstitial space) Assessment and Plan (1) Acute cholecystitis Current Visit: Yes Status: Acute Code(s): K81.0 - ACUTE CHOLECYSTITIS SNOMED Code(s): 80275712 (2) Fever Current Visit: Yes Status: Acute Code(s): R50.9 - FEVER, UNSPECIFIED SNOMED Code(s): 072121237 (3) Ascending cholangitis Narrative/Plan: 71-year-old male presents to Hospital significant abdominal pain and eventually a cholecystectomy is performed. Was doing well but then developed significant fever in the postoperative time frame. AST ALT had increased normal bilirubin was noted. Potential for ascending cholangitis as the etiology of fever and antimicrobial therapy is changed to meropenem. It appears to be having an improvement of his fever this afternoon. He is also feeling slightly better. We'll continue current antibiotic therapy. He is being followed closely by surgery. He's also been seen by pulmonary critical care. Some minimal atelectasis was noticed the most recent chest x-ray. He understands the importance of his incentive spirometer. He is also using his CPAP when he is sleeping. Encouraged some walking if at all possible. Continue to monitor cultures. Negative so far. Patient developed some volume overload him with a dose of diuretic is feeling considerably better. However may be a candidate for addition of oxygen to his BiPAP at home especially continues to have ongoing desaturation. If ready for discharge home tomorrow with complete a seven-day course of Augmentin. Current Visit: Yes Status: Acute Code(s): K83.0 - CHOLANGITIS SNOMED Code( s): 25758190
[2017-03-08 21:15] LABS: Glucose,Whole Blood 239 mg/dL (75-99)
[2017-03-08] MEDS: BISACODYL 10 MG SUPP RECTAL SCH (22:21)
[2017-03-08] MEDS: LATANOPROST 0.005% OPHTH DROPS 2.5 ML BTL BOTH EYES SCH (22:21)
[2017-03-08] MEDS: SODIUM CHLORIDE 0.9% 1,000 ML IV SCH (22:39)
--- NOTE | 2017-03-08 23:08 | CONS ---
CONSULTATION DATE OF SERVICE: 03/08/17 REASON FOR CONSULTATION: Abdominal pain, right upper quadrant abdominal pain and elevated LFTs. HISTORY OF PRESENT ILLNESS: The patient is a 71-year-old pleasant white male who was admitted to the hospital with abdominal pain. CT of the abdomen and ultrasound of the abdomen showed cholelithiasis and dilated CBD. At the time of admission to the hospital, patient's LFTs were within normal limits. Gallbladder wall was thickened on the imaging studies and because of acute cholecystitis, patient underwent laparoscopic cholecystectomy by Dr. Cantu on March 03. Pathology revealed acute chronic necrotizing cholecystitis with cholelithiasis. Following the surgery, patient started having persistent fever and hence Dr. Bustos has been consulted. While in the hospital, he was noted to have mild elevation of serum transaminases and persistent right upper quadrant abdominal pain and hence we were consulted because of this. At the time of admission to the hospital ALT and AST within normal limits. Three days ago, AST was 90, ALT was 118, and today AST normalized and ALT is 102. The patient is feeling much better. He still has mild right upper quadrant abdominal pain. He has a MARIA DOLORES drain in place which is draining about 50 mL of serosanguineous fluid every shift. No further episodes of fever or chills. The patient denies any history of chronic liver disease. Does drink alcohol on a daily basis about 3-4 beers a day. No history of chronic liver disease in the past. PAST MEDICAL HISTORY: Significant for hypertension, morbid obesity, alcohol abuse, hypercholesteremia. Diabetes mellitus. MEDICATIONS: At home: Motrin, labetalol, Pravachol, Glucophage, Xanax, fish oil, Enalapril, acetaminophen and aspirin. PAST SURGICAL HISTORY: Hernia repair, umbilical hernia repair, heart valve replacement. FAMILY HISTORY: Mother has diabetes mellitus. SOCIAL HISTORY: Alcohol use on a daily basis. Chronic smoker. REVIEW OF SYSTEMS: Cardiopulmonary: No chest pain, shortness of breath. Genitourinary: No dysuria, hematuria. Musculoskeletal: Unremarkable. Skin: Unremarkable. Endocrine: Unremarkable. Psychiatric: Unremarkable. Neurological: Unremarkable. ENT vision unremarkable. Constitutional: No recent weight loss. No fever, chills, night sweats. PHYSICAL EXAMINATION: He appears comfortable. No apparent distress. VITAL SIGNS: Stable. Blood pressure 183/84, pulse is 67, temperature 97.5. HEENT examination unremarkable. Conjunctivae pink. Sclerae anicteric. Oral cavity no lesions. Neck: No jugular venous distention or lymph node enlargement. Chest was clear to auscultation. HEART: Regular rate and rhythm. ABDOMEN: Soft. Bowel sounds are positive. Appeared obese. MARIA DOLORES drain in place in the right upper quadrant area. Extremities: No pedal edema. Skin no rashes. NEUROLOGIC: Alert and oriented x3. No focal deficits. LAB: From March 03, ALT and AST are within normal limits. Yesterday AST 130, ALT 146. Today AST is 41, ALT is 102, alkaline phosphatase is 152 and T bilirubin is 0.6. IMPRESSION: 1. This is a patient who presents to the hospital with right upper quadrant abdominal pain and subsequently diagnosed with acute gangrenous cholecystitis for which he underwent a laparoscopic cholecystectomy by Dr. Cantu 6 days ago. At the time of the admission to the hospital serum transaminases were within normal limits. Subsequently, they were slightly elevated in the range of 100 and now they are gradually improving. Most likely we are dealing with postop elevation of LFTs. He did have a low-grade fever with leukocytosis and Dr. Bustos has evaluated the patient and has been on broad-spectrum antibiotics for the last 4 days. Clinically, he has significant improvement with improving serum transaminases. 2. History of chronic alcohol use, but no history of chronic liver disease. RECOMMENDATION: At this time, since the patient's condition is overall improving and serum transaminases is improving, I do not see any reason to proceed with any further investigation. I suggested that he have repeat LFTs in a week from now and if they are still elevated, he can follow up in the office for follow up care. Thank you for this consultation. MMODL / IJN: [id number] /
[2017-03-08] MEDS: ACETAMINOPHEN TAB 325 MG TAB PO PRN (23:47)
[2017-03-09 07:25] LABS: Glucose,Whole Blood 143 mg/dL (75-99)
[2017-03-09] MEDS: IPRATROPIUM-ALBUTEROL 3 ML NEB INHALATION SCH ×4 (07:26→21:13)
[2017-03-09] MEDS: PANTOPRAZOLE 40 MG TABLET PO SCH (08:04)
[2017-03-09] MEDS: ASPIRIN 81 MG PO SCH (08:05)
[2017-03-09] MEDS: HEPARIN SODIUM,PORCINE 5,000 UNIT/ML 1 ML VIAL SQ SCH ×3 (08:05→22:00)
[2017-03-09] MEDS: MEROPENEM 1 GM in SODIUM CHLORIDE 0.9% 100 ML IVPB SCH ×3 (08:05→23:12)
[2017-03-09] MEDS: LISINOPRIL 20 MG TAB PO SCH ×2 (08:06→21:51)
[2017-03-09] MEDS: DOCUSATE 100 MG CAP PO SCH ×2 (08:06→21:50)
[2017-03-09] MEDS: LABETALOL 200 MG TAB PO SCH ×2 (08:06→21:50)
[2017-03-09] MEDS: LINAGLIPTIN 5 MG TABLET PO SCH (08:06)
[2017-03-09 08:10] LABS: Basophils % (A) 0 %; Eosinophils # (A) 0.3 k/uL (0-0.7); Eosinophils % (A) 7 %; HCT 30.4 % (39.0-53.0); HGB 10.1 gm/dL (13.0-17.5); Lymphocytes # (A) 0.6 k/uL (1.0-4.8); Lymphocytes % (A) 13 %; MCH 29.3 pg (25.0-35.0); MCHC 33.1 g/dL (31.0-37.0); MCV 88.6 fL (80.0-100.0); Mean Platelet Volume 6.9; Monocytes # (A) 0.4 k/uL (0-1.0); Monocytes % (A) 7 %; Neutrophils # (A) 3.2 k/uL (1.3-7.7); Neutrophils % (A) 68 %; Platelet Count 340 k/uL (150-450); RBC 3.44 m/uL (4.30-5.90); RDW 13.1 % (11.5-15.5); WBC 4.7 k/uL (3.8-10.6)
[2017-03-09] MEDS: INSULIN ASPART 100 UNIT/ML 1 ML 10 ML VIAL SQ SCH ×4 (08:14→21:51)
[2017-03-09 08:16] LABS: ALT 91 U/L (21-72); AST 38 U/L (17-59); Alkaline Phosphatase 137 U/L (38-126); Anion Gap 10 mmol/L; Blood Urea Nitrogen 16 mg/dL (9-20); Calcium 9.3 mg/dL (8.4-10.2); Carbon Dioxide 29 mmol/L (22-30); Chloride 104 mmol/L (98-107); Glucose 145 mg/dL (74-99); Potassium 4.5 mmol/L (3.5-5.1); Sodium 143 mmol/L (137-145); Total Bilirubin 0.4 mg/dL (0.2-1.3); Total Protein 5.8 g/dL (6.3-8.2)
--- NOTE | 2017-03-09 10:29 | P.PN ---
Subjective Progress Note Date: 03/09/17 Did note the patient did have a temp of 100.5 at midnight pulse ox sat on 2 L 88 % white count 4.7. Blood pressure elevated 176/81 71-year-old male seen and examined sitting up in a chair. Using IS able to achieve 1500. Patient states breathing feels improved. Patient states he has been up ambulating in the hallway. States he has had 2 bowel movements last night no nausea no vomiting. postop March 03 laparscopic cholecystectomy for right upper quadrant pain acute on chronic calculus cholecystitis Objective - Vital Signs Vital signs: Vital Signs Temp 98.0 F 03/09/17 07:00 Pulse 89 03/09/17 07:36 Resp 18 03/09/17 07:26 BP 176/81 03/09/17 07:00 Pulse Ox 88 L 03/09/17 07:26 Intake & Output 03/08/17 03/09/17 03/09/17 18:59 06:59 18:59 Output Total 1320 1050 Balance -1320 -1050 Output: Drainage 120 Right 120 Urine 1200 1050 Other: Voiding Method Urinal # Bowel Movements 1 - Exam Physical exam 71-year-old male sitting up in a chair talkative appears in no acute distress Lungs diminished at the bases no wheezing noted no shortness of breath patient states able to take in a deep breath this morning using IS Heart S1-S2 audible regular Abdomen obese firm MARIA DOLORES drain in place straw-colored secretions noted in the bulb surgical sites no redness surgical tenderness appropriate bowel tones present tolerating diet no nausea no vomiting Extremities a trace pedal edema bilaterally - Labs CBC & Chem 7: 03/09/17 06:58 03/09/17 06:58 Labs: Abnormal Lab Results - Last 24 Hours (Table) 03/08/17 03/08/17 03/08/17 Range/Units 11:44 16:51 21:11 RBC (4.30-5.90) m/uL Hgb (13.0-17.5) gm/dL Hct (39.0-53.0) % Lymphocytes # (1.0-4.8) k/uL Glucose (74-99) mg/dL POC Glucose (mg/dL) 169 H 156 H 239 H (75-99) mg/dL ALT (21-72) U/L Alkaline Phosphatase (38-126) U/L Total Protein (6.3-8.2) g/dL Albumin (3.5-5.0) g/dL 03/09/17 03/09/17 03/09/17 Range/Units 06:58 06:58 07:22 RBC 3.44 L (4.30-5.90) m/uL Hgb 10.1 L (13.0-17.5) gm/dL Hct 30.4 L (39.0-53.0) % Lymphocytes # 0.6 L (1.0-4.8) k/uL Glucose 145 H (74-99) mg/dL POC Glucose (mg/dL) 143 H (75-99) mg/dL ALT 91 H (21-72) U/L Alkaline Phosphatase 137 H (38-126) U/L Total Protein 5.8 L (6.3-8.2) g/dL Albumin 3.0 L (3.5-5.0) g/dL Microbiology - Last 24 Hours (Table) 03/07/17 14:30 Gram Stain - Final Sputum Sputum Culture - Final Angela albicans 03/04/17 20:04 Blood Culture - Preliminary Blood No Growth after 96 hours 03/04/17 09:37 Blood Culture - Preliminary Blood No Growth after 96 hours Assessment and Plan Assessment: Impression Present on admission right upper quadrant pain suspect due to acute cholecystitis Ultrasound of the abdomen gallbladder wall thickening correlate for cholecystitis with gallstones morbid obesity BMI 39 history of an aortic valve replacement 2 years prior obstructive sleep apnea with CPAP therapy Present on admission accelerated hypertension March 03 laparoscopic cholecystectomy for acute on chronic calculus cholecystitis Postop persistent febrile Postop urinary retention unexpected post surgical condition resolved Acute on chronic calculus cholecystitis Mildly elevated liver enzymes possible due to ascending cholangitis as a source of the fever Type 2 diabetes non-insulin hemoglobin A1c 6.3 Hypertension labile Plan Consult medicine for medical management GIs recommendations repeat LFTs in a week outpatient setting follow-up in the office Will discuss with infectious disease recommendations antibiotics Advance diet to full liquid DuoNeb respiratory treatments to be initiated Increase activity Repeat labs in the morning Pain control use incentive spirometer every 1 hour while awake DVT and GI prophylaxis Progress note dictated for Dr. malhotra The above impression and plan of care have been discussed and directed by signing physician. Carla Mcginnis nurse practitioner acting as scribe for signing physician.
--- NOTE | 2017-03-09 10:54 | P.PN ---
Subjective Progress Note Date: 03/09/17 Principal diagnosis: Acute cholelithiasis, status post laparoscopic cholecystectomy This is a very pleasant 71-year-old gentleman who follows with Dr. Santos as his primary care physician. He has a history of diabetes mellitus, hypertension , osteoarthritis, morbid obesity, previous aortic valve replacement, porcine. He also has a history of obstructive sleep apnea and utilizes a CPAP machine in the outpatient setting. He has not been seen by a electronic organ technician in the past. He has a remote history of chronic tobacco use. No evidence of COPD. No oxygen or inhalers in the outpatient setting. He presented here to the emergency room on 03/02/2017 with complaints of abdominal pain. It started a few days prior to his arrival. His discomfort had caused him to have high blood pressure 200/100 at home he became concerned and was seen in the ER. A computed tomography scan performed in the emergency room revealed evidence of mild mesenteric inflammation adjacent to the gallbladder. There is also an inflammatory process mid abdomen suggestive of mesentery panniculitis. Of note there are multiple pulmonary nodules there was noted atelectasis/scarring in the lower lobes bilaterally. There was a 7 mm subpleural nodule left upper lobe , 6 mm subpleural nodule in the right middle lobe. An ultrasound of the gallbladder did reveal evidence of cholelithiasis with dilation and common bile duct measuring 0.7 cm. It subsequently undergone a laparoscopic cholecystectomy on 03/03/2017. This is postoperative day #2. The patient has developed increasing shortness of breath, cough and congestion. He is also developed a fever with a T-max of 101.2 this morning. He is maintaining good O2 saturations in the low 90s on room air. Chest x-ray shows evidence of scattered linear subsegmental atelectasis. No clear evidence of focal consolidation or pneumonia. There is some COPD appreciated. He is seen today in consultation on the regular medical floor. He is awake and alert in no acute distress. He is sitting up in a chair at the bedside. He is working well at the incentive spirometer pulling approximately 1500 mL's. He's been up ambulating with assistance. He has been initiated on DuoNeb inhalations every 4 hours. He is on antibiotics in the form of Unasyn. Blood, urine and sputum cultures are pending. Leukocytosis. Hemoglobin 10.5. There has been a rise in his liver enzymes currently AST 90, ALT 118 She is seen again today 03/06/2017 in follow-up on the regular medical floor. He is awake and alert in no acute distress. Currently sitting up in the chair at the bedside. Maintaining good O2 saturations in the 90s on room air. He did have an episode of waking up with his CPAP in place feeling quite short of breath and needed to sit up to regain his breath. He has had ongoing issues with fevers. 101.2 again this morning. Blood and urine cultures reveal no growth to date. His cough is nonproductive thus far. No leukocytosis. He remains on meropenem. Hemoglobin 10.4. Liver enzymes continue to rise, AST 77 , ALT 130, alk phos 146. Continues to work well with his incentive spirometer. He's up with assistance. Reevaluated today on 03/07/2017, patient is doing relatively well, good job with the incentive spirometry, has some pain upon movement in the right upper quadrant area and right posterior chest, but no shortness of breath, no cough, no wheezing. Patient is maintaining good O2 saturation on room air. Continues to use BiPAP at night.had low-grade temp last night, presently afebrile.CBC is relatively normal and basic metabolic profile is normal. Liver enzymes were noted to be a bit elevated. On 03/08/2017 patient seen again in follow-up. This morning patient's FiO2 increased to 4 L per nasal cannula and O2 sat only around 92%. This morning's chest x-ray shows mid and lower lung areas of atelectasis, opacity the left base. CT chest, abdomen and pelvis showed increasing scattered groundglass infiltrates throughout both lung busch, increasing pleural effusions bilaterally, bilateral lower lobe atelectasis right greater than the left. Scattered pulmonary nodules. Strange attenuation and small fluid collection at the gallbladder fossa without internal air, that could reflect postoperative seroma, cholecystostomy tube in place. Vital signs , patient did have a low- grade fever of 99.8 last night. His chest x-ray and CT chest are consistent with a picture of fluid overload, we will give the patient a dose of IV Lasix today. Lung sounds are managed, with a few bibasilar rales. On 03/09/2017 patient seen in follow-up on medical surgical floor. He sitting up in the chair, comfortable, in no acute distress. Denies any dyspnea, currently is off the oxygen, has been wearing it intermittently. On room air his pulse ox is ranging between 88-91%. Yesterday we gave the patient of dose of IV Lasix 40 mg IV push. patient is in the -2370 mL fluid balance over the last 24 hours. Lung sounds are clear to auscultation, no rhonchi no wheezes or rales. Patient did wear his CPAP every night during this admission. Compliant with his incentive spirometer, but his effort is slightly limited by surgical incision tenderness. Able to achieve 1000 04/05/1947 on the incentive spirometry today. today's lab work shows WBC in the normal limits, 4.7, hemoglobin is 10.1, no electrolyte abnormality, renal profile is within normal limits. liver enzymes are as follows AST is 38, ALT is 91, alkaline phosphatase is 137, GI service is following. From our standpoint, patient is stable for discharge home today, without the oxygen. Advised to continue working on pulmonary toileting and incentive spirometry. Will need follow-up appointment with Dr. Barahona in the office in one week. Objective - Vital Signs Vital signs: Vital Signs Temp 98.0 F 03/09/17 07:00 Pulse 89 03/09/17 07:36 Resp 18 03/09/17 07:26 BP 176/81 03/09/17 07:00 Pulse Ox 88 L 03/09/17 07:26 Intake & Output 03/08/17 03/09/17 03/09/17 18:59 06:59 18:59 Output Total 1320 1050 Balance -1320 -1050 Output: Drainage 120 Right 120 Urine 1200 1050 Other: Voiding Method Urinal # Bowel Movements 1 - Exam GENERAL EXAM: Obese. Alert, active, comfortable in no apparent distress. HEAD: Normocephalic. EYES: Normal reaction of pupils, equal size. NOSE: Clear with pink turbinates. THROAT: There is crowding of the posterior pharynx. No erythema or exudates. NECK: Short. No masses, no JVD. CHEST: No chest wall deformity. LUNGS: Equal air entry, clear lung sounds, no rhonchi, no wheezes, no rales. CVS: S1 and S2 normal with an audible murmur, regular rhythm. ABDOMEN: No hepatosplenomegaly, normal bowel sounds, no guarding or rigidity. Surgical sites clean dry and well approximated. MARIA DOLORES drain remains in place. SPINE: No scoliosis or deformity SKIN: No rashes CENTRAL NERVOUS SYSTEM: No focal deficits, tone is normal in all 4 extremities. EXTREMITIES: There is no peripheral edema. No clubbing, no cyanosis. Peripheral pulses are intact. - Labs CBC & Chem 7: 03/09/17 06:58 03/09/17 06:58 Labs: Abnormal Lab Results - Last 24 Hours (Table) 03/08/17 03/08/17 03/08/17 Range/Units 11:44 16:51 21:11 RBC (4.30-5.90) m/uL Hgb (13.0-17.5) gm/dL Hct (39.0-53.0) % Lymphocytes # (1.0-4.8) k/uL Glucose (74-99) mg/dL POC Glucose (mg/dL) 169 H 156 H 239 H (75-99) mg/dL ALT (21-72) U/L Alkaline Phosphatase (38-126) U/L Total Protein (6.3-8.2) g/dL Albumin (3.5-5.0) g/dL 03/09/17 03/09/17 03/09/17 Range/Units 06:58 06:58 07:22 RBC 3.44 L (4.30-5.90) m/uL Hgb 10.1 L (13.0-17.5) gm/dL Hct 30.4 L (39.0-53.0) % Lymphocytes # 0.6 L (1.0-4.8) k/uL Glucose 145 H (74-99) mg/dL POC Glucose (mg/dL) 143 H (75-99) mg/dL ALT 91 H (21-72) U/L Alkaline Phosphatase 137 H (38-126) U/L Total Protein 5.8 L (6.3-8.2) g/dL Albumin 3.0 L (3.5-5.0) g/dL Microbiology - Last 24 Hours (Table) 03/07/17 14:30 Gram Stain - Final Sputum Sputum Culture - Final Angela albicans 03/04/17 20:04 Blood Culture - Preliminary Blood No Growth after 96 hours 03/04/17 09:37 Blood Culture - Preliminary Blood No Growth after 96 hours Assessment and Plan Plan: Assessment: #1. Acute hypoxic respiratory failure, multifactorial, underlying sleep apnea, there is a component of fluid overload evident on today's chest x-ray and CT chest abdomen and pelvis, and bronchopneumonia. patient has been covered with meropenem during this admission, per ID service she will be switched to oral Augmentin, yesterday we gave a dose of IV Lasix with good diuresis. #1 acute Cholelithiasis status post laparoscopic cholecystectomy, postoperative day #5 #2 Febrile illness of unclear etiology. Urine and blood cultures growth to date. Sputum culture pending. #3 Postoperative atelectasis as an expected post surgical condition. #4 Pulmonary nodules noted on computed tomography scan of the abdomen including a 7 mm subpleural nodule in the left upper lobe, 6 mm subpleural pulmonary nodule in the right middle lobe.could be monitored on outpatient basis #5 Remote history of chronic tobacco dependence. #6 History of aortic valve replacement utilizing a tissue valve. #7 Obstructive sleep apnea, utilizing CPAP in the outpatient setting. #8 Morbid obesity. #9 Hypertension. #10 Diabetes mellitus. #11 Osteoarthritis. Recommendation: Continue incentive spirometry, bronchodilators, patient is a negative balance after the IV Lasix we gave yesterday. Currently off the oxygen, O2 sats are somewhat marginal, fluctuating between 88-91% on room air without any signs of distress, continue pulmonary toileting, increase activity as tolerated. Patient is okay to be discharged home today, he does have a home CPAP unit, advised to wear it at bedtime and as needed during the day. Follow-up with Dr. Barahona in the office in one week I performed a history & physical examination of the patient and discussed their management with my nurse practitioner, Melisa Glez. I reviewed the nurse practitioner's note and agree with the documented findings and plan of care. Lung sounds are diminished. The findings and the impression was discussed with the patient. I attest to the documentation by the nurse practitioner. Time with Patient: Less than 30
[2017-03-09 11:39] LABS: Glucose,Whole Blood 266 mg/dL (75-99)
[2017-03-09] MEDS: SODIUM CHLORIDE 0.9% 1,000 ML IV SCH (16:48)
[2017-03-09 17:18] LABS: Glucose,Whole Blood 217 mg/dL (75-99)
[2017-03-09] MEDS: BISACODYL 10 MG SUPP RECTAL SCH (21:50)
[2017-03-09] MEDS: LATANOPROST 0.005% OPHTH DROPS 2.5 ML BTL BOTH EYES SCH (21:51)
[2017-03-09] MEDS ORDERED: SODIUM CHLORIDE 0.9% 1,000 ML IV SCH (22:30)
[2017-03-09 23:08] VITALS: RESP 18
--- NOTE | 2017-03-09 23:41 | CONS ---
CONSULTATION DATE OF CONSULTATION: 03/09/2017 REASON FOR CONSULTATION: Medical management, requested by Dr. Cantu. CONSULTATION: This is a pleasant 71-year-old patient of Dr. Santos. The patient presented on 03/02/2017 with abdominal pain and was found to have a gangrenous gallbladder with gallstones. He underwent laparoscopic cholecystectomy on 03/03/2017. The patient has a drain in place; progressively is continuing to do well otherwise from a surgical standpoint. He is on a regular diet now, had a good bowel movement last night. Pain is reasonably well controlled. The patient did develop a fever, for which patient is on IV meropenem. I was specifically patient's blood pressure, which has been running high, anywhere from 170 to 190 systolic. The patient said at home sometimes his blood pressure runs in the 120s. He measures it twice a day and often it may run higher in the evening. The patient's chronic stable medical conditions include diabetes, osteoarthritis, obstructive sleep apnea, uses a CPAP machine, and pulmonary nodules. REVIEW OF SYSTEMS: CONSTITUTIONAL: Tired. HEENT: None. RESPIRATORY: Mild shortness of breath. CARDIOVASCULAR: None. GASTROINTESTINAL: As above. GENITOURINARY: None. MUSCULOSKELETAL: Arthritic pain in joints. DERMATOLOGICAL: None. HEMATOLOGICAL: None. LYMPHATICS: None. PSYCHIATRY: None. NEUROLOGICAL: None. PAST MEDICAL HISTORY: 1. Diabetes. 2. Hyperlipidemia. 3. Hypertension. 4. Osteoarthritis. 5. Sleep apnea. 6. Glaucoma. 7. Obstructive sleep apnea; uses BiPAP. 8. Arthritis, especially in the hips and knees. PAST SURGICAL HISTORY: 1. Cholecystectomy. 2. Coronary artery bypass. 3. Aortic valve replacement. 4. Bilateral cataracts removed. 5. Circumcision. 6. Umbilical hernia repair. SOCIAL HISTORY: The patient has a son and 12-year-old grandchild living with him. The patient smoked a pack a day for 22 years, stopped in 1988. The patient drinks about 3-4 beers a day. 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 Previously used to work for [employer] and did work in the [employer] and was in [place] during the [place]. FAMILY HISTORY: Mother had heart disease and back problems. HOME MEDICATIONS: 1. Januvia 100 mg a day. 2. Glucophage 500 mg p.o. b.i.d. 3. Pravachol 80 mg p.o. at bedtime. 4. Xalatan 0.005% one drop to both eyes at bedtime. 5. Trandate 200 mg b.i.d. 6. Motrin 800 mg q.8 p.r.n. 7. Fish oil 1 capsule p.o. daily. 8. Vasotec 20 mg b.i.d. 9. Aspirin 81 mg p.o. daily. 10.Xanax 0.25 p.o. at bedtime p.r.n. 11.Ardmore 5 one tablet p.o. q.6 p.r.n. 12.Colace 100 mg b.i.d. 13.Augmentin. ALLERGIES: NONE. PHYSICAL EXAMINATION: T-max 100.5 last night. Currently 97.4, pulse 79, respiration 18, blood pressure 132/75, pulse ox 91% on room air. GENERAL APPEARANCE: Well built; BMI 39.0. Sitting up in a chair, slightly short of breath. EYES: Pupils equal. Conjunctivae normal. HEENT: Oral cavity normal. NECK: Short, thick. JVD unable to assess. RESPIRATORY: Effort increased. LUNGS: Diminished breath sounds. CARDIOVASCULAR: First and second sounds normal. Edema present. ABDOMEN: Distended, soft. Minimal tenderness. Drain in place. LYMPHATIC: No lymph node palpable in neck or axillae. PSYCHIATRY: Alert and oriented x3. Mood and affect slightly anxious-appearing. NEUROLOGICAL: Pupils equal. Cranial nerves grossly intact. Power and sensation grossly intact. INVESTIGATIONS: White count 4.7, hemoglobin 10.1, potassium 4.5. Accu-Cheks are noted. CT scan of the chest, abdomen and pelvis shows increasing scattered ground-glass infiltrates throughout both the lungs, increasing pleural effusions, atelectasis, some scattered pulmonary nodules and cholecystostomy tube in place. Chest x-ray from yesterday morning shows pleural effusion, fluid in the horizontal fissure. ASSESSMENT: 1. Uncontrolled hypertension in a patient whose blood pressure is rather well controlled at home. Currently patient seems to be fluid-overloaded. Also patient needs a large blood pressure cuff, which is not currently present on the floor, and this is probably giving falsely elevated readings. The patient is also somewhat anxious. The patient normally drinks about 4-5 beers a day and there may be an element of slight alcohol withdrawal. All these are possibly contributing to the patient's blood pressure is running high. Also patient is getting normal saline at 50 mL/hour. 2. Diabetes mellitus, type 2, on oral hypoglycemic. 3. Primary osteoarthritis of multiple joints. 4. Obesity; body mass index of 39.0. 5. History of aortic valve replacement. 6. Obstructive sleep apnea; uses a CPAP machine. 7. Chronic pulmonary nodules; could be granuloma; for further outpatient workup. 8. Postoperative fever; could be from the gangrenous gallbladder site. Patient is currently on meropenem and clinically the white count is down to 4.7. 9. Acute fluid overload, likely from IV fluids. The patient has some pulmonary edema, slight pleural effusion and dependent edema. PLAN: Patient's normal saline will be cut back to 10 mL/hour. Will give patient 2 doses of IV Lasix starting in the morning. I did ask the nurse to get a large blood pressure cuff. Given that patient is probably having some element of alcohol withdrawal, will give a small dose of Ativan. I will not change any blood pressure medicines at the present time. Have the nurse check the blood pressure every 4 hours, hoping by tomorrow afternoon the blood pressure will come down. If need be, there will be an adjustment in medications, though in the meantime we will change the patient's lisinopril to lisinopril/hydrochlorothiazide 40 with hydrochlorothiazide component. Care was discussed the patient and questions were answered. Thank you, Dr. Cantu. WENDY / DIANELYSN: [id number] /
[2017-03-09] MEDS: LORazepam 0.5 MG TAB PO SCH (23:58)
[2017-03-10] MEDS: FUROSEMIDE 10 MG/ML 4 ML VIAL IV SCH ×3 (06:21→11:27)
[2017-03-10] MEDS: ASPIRIN 81 MG PO SCH (07:46)
[2017-03-10] MEDS: PANTOPRAZOLE 40 MG TABLET PO SCH (07:46)
[2017-03-10] MEDS: MEROPENEM 1 GM in SODIUM CHLORIDE 0.9% 100 ML IVPB SCH (07:46)
[2017-03-10] MEDS: LABETALOL 200 MG TAB PO SCH (07:46)
[2017-03-10] MEDS: HEPARIN SODIUM,PORCINE 5,000 UNIT/ML 1 ML VIAL SQ SCH (07:46)
[2017-03-10] MEDS: DOCUSATE 100 MG CAP PO SCH (07:46)
[2017-03-10] MEDS: INSULIN ASPART 100 UNIT/ML 1 ML 10 ML VIAL SQ SCH ×2 (07:46→12:19)
[2017-03-10] MEDS: LINAGLIPTIN 5 MG TABLET PO SCH (07:47)
[2017-03-10] MEDS: LORazepam 0.5 MG TAB PO SCH (07:47)
[2017-03-10] MEDS: IPRATROPIUM-ALBUTEROL 3 ML NEB INHALATION SCH ×2 (07:50→11:29)
[2017-03-10 08:01] LABS: Glucose,Whole Blood 149 mg/dL (75-99)
[2017-03-10] MEDS ORDERED: LISINOPRIL-HCTZ 20-12.5 MG 1 EACH TAB PO SCH (09:00)
[2017-03-10 09:14] VITALS: PULSE 67; TEMP 98.2
[2017-03-10 10:06] VITALS: BP 150/70
--- NOTE | 2017-03-10 10:40 | P.PN ---
Subjective Progress Note Date: 03/10/17 71-year-old seen and examined sitting up in a chair. Patient states he has been up ambulating in the hallway. Denies any dizziness lightheadedness chest pain or shortness of breath. Patient states is anxious to be discharged home. No labs pending blood pressure this morning 150/70 the temp is 98.2 currently patient is on room air. MARIA DOLORES drain in place serous drainage noted did note leakage around the dressing at the MARIA DOLORES site Objective - Vital Signs Vital signs: Vital Signs Temp 98.2 F 03/10/17 07:00 Pulse 92 03/10/17 08:07 Resp 18 03/10/17 07:00 BP 150/70 03/10/17 08:00 Pulse Ox 90 L 03/10/17 07:00 Intake & Output 03/09/17 03/10/17 03/10/17 18:59 06:59 18:59 Output Total 30 850 Balance -30 -850 Output: Drainage 30 50 Right 30 50 Urine 800 Other: Voiding Method Urinal Urinal # Voids 3 - Exam Physical exam 71-year-old male sitting up in a chair talkative appears in no acute distress states has been up ambulating in the hallway Lungs diminished at the bases no wheezing noted no shortness of breath patient states able to take in a deep breath this morning using IS Heart S1-S2 audible regular denying chest pain Abdomen obese firm MARIA DOLORES drain in place straw-colored secretions noted in the bulb leakage around the MARIA DOLORES drainage site noted surgical sites no redness surgical tenderness appropriate bowel tones present tolerating diet no nausea no vomiting Extremities a trace pedal edema bilaterally - Labs CBC & Chem 7: 03/09/17 06:58 03/09/17 06:58 Labs: Abnormal Lab Results - Last 24 Hours (Table) 03/09/17 03/09/17 03/10/17 Range/Units 11:37 17:16 07:20 POC Glucose (mg/dL) 266 H 217 H 149 H (75-99) mg/dL Microbiology - Last 24 Hours (Table) 03/04/17 20:04 Blood Culture - Preliminary Blood No Growth after 120 hours 03/04/17 09:37 Blood Culture - Preliminary Blood No Growth after 120 hours 03/07/17 14:30 Gram Stain - Final Sputum Sputum Culture - Final Angela albicans Assessment and Plan Assessment: Impression Present on admission right upper quadrant pain suspect due to acute cholecystitis Ultrasound of the abdomen gallbladder wall thickening correlate for cholecystitis with gallstones morbid obesity BMI 39 history of an aortic valve replacement 2 years prior obstructive sleep apnea with CPAP therapy Present on admission accelerated hypertension March 03 laparoscopic cholecystectomy for acute on chronic calculus cholecystitis Postop persistent febrile Postop urinary retention unexpected post surgical condition resolved Acute on chronic calculus cholecystitis Mildly elevated liver enzymes possible due to ascending cholangitis as a source of the fever Type 2 diabetes non-insulin hemoglobin A1c 6.3 Hypertension labile Plan We'll remove the MARIA DOLORES drain before discharge GIs recommendations repeat LFTs in a week outpatient setting follow-up in the office Will discuss with infectious disease recommendations antibiotics DuoNeb respiratory treatments to be initiated Increase activity Home O2 eval prior to discharge Pain control use incentive spirometer every 1 hour while awake DVT and GI prophylaxis Progress note dictated for Dr. malhotra The above impression and plan of care have been discussed and directed by signing physician. Carla Mgcinnis nurse practitioner acting as scribe for signing physician.
[2017-03-10 12:22] LABS: Glucose,Whole Blood 121 mg/dL (75-99)
--- NOTE | 2017-03-10 12:28 | P.DS ---
Providers Date of admission: 03/02/17 05:11 Expected date of discharge: 03/10/17 Attending physician: Brittany Cantu Consults: 03/05/17 09:18 Consult Physician Stat Consulting Provider: Tal Bustos Consult Reason/Comments: acute cholecystitis - antibiotics mx, post op fevers Do you want consulting provider notified?: Yes 03/05/17 09:51 Consult Physician Stat Consulting Provider: Mike Griggs Consult Reason/Comments: pulm mtg Do you want consulting provider notified?: Yes 03/09/17 10:20 Consult Physician Stat Consulting Provider: Stanley Gan Consult Reason/Comments: Medical management elevated blood pressure Do you want consulting provider notified?: Yes Primary care physician: Abdirashid Jones [facility] Course: 71-year-old male who presented to the emergency room with a chief complaint of developing right upper abdominal quadrant pain with nausea. Patient reports that the pain ongoing for the past several days. states that the pain was intolerable on the day of admission it was constant would not go away came into the emergency room to be evaluated for the above-mentioned symptoms. Patient stated the pain seemed to get worse if he tried to eat certain foods.. Patient was seen and admitted to the services of the attending. Patient did have a CAT scan of the abdomen at did show gallbladder wall thickening with gallstones possible cholecystitis. March 03 did undergo laparoscopic cholecystectomy for acute on chronic calculus cholecystitis. 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 followed postop by infectious disease as well as pulmonary service. Postop did develop urinary retention and required straight cath this did resolve urinalysis was clear postop patient did develop fever temps elevated to 102 blood cultures were negative infectious disease felt the temps potentially could be due to ascending cholangitis as a etiology of the fever. Patient was started on IV antibiotics meropenem per infectious diseases recommendations there was a noted improvement in the fever. additionally did develop a elevated liver enzymes as was evaluated by GI service Dr. Soto who recommended that the labs be repeated in one week and could be followed in the outpatient setting. Blood and urine cultures were negative. Sputum was obtained was positive for Angela albican in which infectious disease indicated that there was no need for antibiotics at this time Home O2 eval done prior to discharge with activity on room air sats were 90%. From all consulting physicians patient was felt to be hemodynamically stable and appropriate proceed with a discharge to home. Impression Present on admission right upper quadrant pain suspect due to acute cholecystitis Ultrasound of the abdomen gallbladder wall thickening correlate for cholecystitis with gallstones morbid obesity BMI 39 history of an aortic valve replacement 2 years prior Present on admission accelerated hypertension March 03 laparoscopic cholecystectomy for acute on chronic calculus cholecystitis Postop persistent febrile potentially due to ascending cholangitis Postop urinary retention unexpected post surgical condition resolved Acute on chronic calculus cholecystitis Mildly elevated liver enzymes possible due to ascending cholangitis as a source of the fever Type 2 diabetes non-insulin hemoglobin A1c 6.3 Hypertension labile Acute hypoxic respiratory failure multifactorial underlying sleep apnea, component of fluid overload as evident on a chest x-ray and a CAT scan of the chest Postoperative atelectasis an expected postsurgical condition History of aortic valve replacement utilizing a tissue valve Morbid obesity BMI 39 Osteoarthritis bilateral knees Obstructive sleep apnea with the use of CPAP in the outpatient setting Pathology reviewed acute and chronic necrotizing cholecystitis with cholelithiasis The above impression and plan of care have been discussed and directed by signing physician. Carla Mcginnis nurse practitioner acting as scribe for signing physician. Patient Condition at Discharge: Serious Plan - Discharge Summary Discharge Rx Participant: No New Discharge Prescriptions: New Docusate [Colace] 100 mg PO BID #30 capsule Hydrocodone/Acetaminophen [[place] 5-325] 1 each PO Q6HR PRN #20 tab PRN Reason: Pain Amoxic-Pot Clav 875-125Mg [Augmentin 875-125] 1 tab PO Q12HR #14 tablet Continue Labetalol [Trandate] 200 mg PO BID Enalapril [Vasotec] 20 mg PO BID metFORMIN HCL [Glucophage] 500 mg PO BID Pravastatin Sodium [Pravachol] 80 mg PO HS Ibuprofen [Motrin] 800 mg PO Q8HR PRN PRN Reason: Pain Fish Oil/Dha/Epa [Fish Oil 1,200 mg Fish Oil] 1 cap PO DAILY Aspirin [Adult Low Dose Aspirin EC] 81 mg PO DAILY Latanoprost Ophth [Xalatan 0.005%] 1 drops BOTH EYES HS ALPRAZolam [Xanax] 0.25 mg PO HS PRN PRN Reason: Anxiety sitaGLIPtin [Januvia] 100 mg PO DAILY Discharge Medication List Aspirin [Adult Low Dose Aspirin EC] 81 mg PO DAILY 12/17/15 [History] Enalapril [Vasotec] 20 mg PO BID 12/17/15 [History] Fish Oil/Dha/Epa [Fish Oil 1,200 mg Fish Oil] 1 cap PO DAILY 12/17/15 [History] Ibuprofen [Motrin] 800 mg PO Q8HR PRN 12/17/15 [History] Labetalol [Trandate] 200 mg PO BID 12/17/15 [History] Pravastatin Sodium [Pravachol] 80 mg PO HS 12/17/15 [History] metFORMIN HCL [Glucophage] 500 mg PO BID 12/17/15 [History] ALPRAZolam [Xanax] 0.25 mg PO HS PRN 12/19/15 [History] Latanoprost Ophth [Xalatan 0.005%] 1 drops BOTH EYES HS 12/19/15 [History] sitaGLIPtin [Januvia] 100 mg PO DAILY 03/02/17 [History] Docusate [Colace] 100 mg PO BID #30 capsule 03/05/17 [Rx] Hydrocodone/Acetaminophen [[place] 5-325] 1 each PO Q6HR PRN #20 tab 03/05/17 [Rx] Amoxic-Pot Clav 875-125Mg [Augmentin 875-125] 1 tab PO Q12HR #14 tablet [Rx] Follow up Appointment(s)/Referral(s): Derick Youngblood MD [STAFF PHYSICIAN] - 03/18/17 9:30 am Brittany Cantu MD [STAFF PHYSICIAN] - 03/16/17 9:00 am Abdirashid Santos MD [Primary Care Provider] - 03/17/17 1:30 pm (Have repeat liver function labs drawn at this time. ) [facility] Visiting Nurse, [NON-STAFF] - Ambulatory/Diagnostic Orders: Comprehensive Metabolic Panel [LAB.AMB] Location: Determined By Patient Patient Instructions/Handouts: *Surgery [facility] - Laparoscopic Cholecystectomy Discharge Instructions, Low Fat Diet (GEN), Michael-Odell Drain Care (DC) Activity/Diet/Wound Care/Special Instructions: Cardiac, diabetic diet. OK to shower . No soaking bath. No heavy lifting more than 10 lbs for 6 weeks post surgery. No driving while taking narcotics for pain. Take Motrin 400 mg by mouth three times daily after meals if pain is not controlled Use incentive spirometry 10 times an hour while awake Discharge Disposition: HOME WITH HOME HEALTH SERVICES
--- NOTE | 2017-03-10 13:19 | P.PN ---
Subjective Progress Note Date: 03/10/17 Principal diagnosis: Acute cholelithiasis, status post laparoscopic cholecystectomy This is a very pleasant 71-year-old gentleman who follows with Dr. Santos as his primary care physician. He has a history of diabetes mellitus, hypertension , osteoarthritis, morbid obesity, previous aortic valve replacement, porcine. He also has a history of obstructive sleep apnea and utilizes a CPAP machine in the outpatient setting. 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 He has a remote history of chronic tobacco use. No evidence of COPD. No oxygen or inhalers in the outpatient setting. He presented here to the emergency room on 03/02/2017 with complaints of abdominal pain. It started a few days prior to his arrival. His discomfort had caused him to have high blood pressure 200/100 at home he became concerned and was seen in the ER. A computed tomography scan performed in the emergency room revealed evidence of mild mesenteric inflammation adjacent to the gallbladder. There is also an inflammatory process mid abdomen suggestive of mesentery panniculitis. Of note there are multiple pulmonary nodules there was noted atelectasis/scarring in the lower lobes bilaterally. There was a 7 mm subpleural nodule left upper lobe , 6 mm subpleural nodule in the right middle lobe. An ultrasound of the gallbladder did reveal evidence of cholelithiasis with dilation and common bile duct measuring 0.7 cm. It subsequently undergone a laparoscopic cholecystectomy on 03/03/2017. This is postoperative day #2. The patient has developed increasing shortness of breath, cough and congestion. He is also developed a fever with a T-max of 101.2 this morning. He is maintaining good O2 saturations in the low 90s on room air. Chest x-ray shows evidence of scattered linear subsegmental atelectasis. No clear evidence of focal consolidation or pneumonia. There is some COPD appreciated. He is seen today in consultation on the regular medical floor. He is awake and alert in no acute distress. He is sitting up in a chair at the bedside. He is working well at the incentive spirometer pulling approximately 1500 mL's. He's been up ambulating with assistance. He has been initiated on DuoNeb inhalations every 4 hours. He is on antibiotics in the form of Unasyn. Blood, urine and sputum cultures are pending. Leukocytosis. Hemoglobin 10.5. There has been a rise in his liver enzymes currently AST 90, ALT 118 She is seen again today 03/06/2017 in follow-up on the regular medical floor. He is awake and alert in no acute distress. Currently sitting up in the chair at the bedside. Maintaining good O2 saturations in the 90s on room air. He did have an episode of waking up with his CPAP in place feeling quite short of breath and needed to sit up to regain his breath. He has had ongoing issues with fevers. 101.2 again this morning. Blood and urine cultures reveal no growth to date. His cough is nonproductive thus far. No leukocytosis. He remains on meropenem. Hemoglobin 10.4. Liver enzymes continue to rise, AST 77 , ALT 130, alk phos 146. Continues to work well with his incentive spirometer. He's up with assistance. Reevaluated today on 03/07/2017, patient is doing relatively well, good job with the incentive spirometry, has some pain upon movement in the right upper quadrant area and right posterior chest, but no shortness of breath, no cough, no wheezing. Patient is maintaining good O2 saturation on room air. Continues to use BiPAP at night.had low-grade temp last night, presently afebrile.CBC is relatively normal and basic metabolic profile is normal. Liver enzymes were noted to be a bit elevated. On 03/08/2017 patient seen again in follow-up. This morning patient's FiO2 increased to 4 L per nasal cannula and O2 sat only around 92%. This morning's chest x-ray shows mid and lower lung areas of atelectasis, opacity the left base. CT chest, abdomen and pelvis showed increasing scattered groundglass infiltrates throughout both lung busch, increasing pleural effusions bilaterally, bilateral lower lobe atelectasis right greater than the left. Scattered pulmonary nodules. Strange attenuation and small fluid collection at the gallbladder fossa without internal air, that could reflect postoperative seroma, cholecystostomy tube in place. Vital signs , patient did have a low- grade fever of 99.8 last night. His chest x-ray and CT chest are consistent with a picture of fluid overload, we will give the patient a dose of IV Lasix today. Lung sounds are managed, with a few bibasilar rales. On 03/09/2017 patient seen in follow-up on medical surgical floor. He sitting up in the chair, comfortable, in no acute distress. Denies any dyspnea, currently is off the oxygen, has been wearing it intermittently. On room air his pulse ox is ranging between 88-91%. Yesterday we gave the patient of dose of IV Lasix 40 mg IV push. patient is in the -2370 mL fluid balance over the last 24 hours. Lung sounds are clear to auscultation, no rhonchi no wheezes or rales. Patient did wear his CPAP every night during this admission. Compliant with his incentive spirometer, but his effort is slightly limited by surgical incision tenderness. Able to achieve 1000 04/05/1947 on the incentive spirometry today. today's lab work shows WBC in the normal limits, 4.7, hemoglobin is 10.1, no electrolyte abnormality, renal profile is within normal limits. liver enzymes are as follows AST is 38, ALT is 91, alkaline phosphatase is 137, GI service is following. From our standpoint, patient is stable for discharge home today, without the oxygen. Advised to continue working on pulmonary toileting and incentive spirometry. Will need follow-up appointment with Dr. Barahona in the office in one week. On 03/10/2017 patient is seen again on medical surgical floor. Denies any respiratory difficulty denies any dyspnea, on room air, with O2 sat at 90%. Afebrile, hemodynamically stable. No new blood work or chest x-rays today, apparently he was kept in the hospital overnight in view of his hypertension, systolic blood pressures were ranging from 160s to 205, and diastolic ranging from 70s to 92. She was given additional doses of IV Lasix, he is currently on oral Trandate, Zestoretic 20-12.5. This morning his blood pressure has improved , and is currently at 146/71. Lung sounds are clear, no rhonchi no wheezes noted. Respirations are even and nonlabored. Patient has been cleared for discharge home today. Objective - Vital Signs Vital signs: Vital Signs Temp 98.2 F 03/10/17 07:00 Pulse 92 03/10/17 08:07 Resp 18 03/10/17 07:00 BP 150/70 03/10/17 08:00 Pulse Ox 90 L 03/10/17 07:00 Intake & Output 03/09/17 03/10/17 03/10/17 18:59 06:59 18:59 Output Total 30 850 900 Balance -30 -213 -900 Output: Drainage 30 50 Right 30 50 Urine 800 900 Other: Voiding Method Urinal Urinal # Voids 3 - Exam GENERAL EXAM: Obese. Alert, active, comfortable in no apparent distress. HEAD: Normocephalic. EYES: Normal reaction of pupils, equal size. NOSE: Clear with pink turbinates. THROAT: There is crowding of the posterior pharynx. No erythema or exudates. NECK: Short. No masses, no JVD. CHEST: No chest wall deformity. LUNGS: Equal air entry, clear lung sounds, no rhonchi, no wheezes, no rales. CVS: S1 and S2 normal with an audible murmur, regular rhythm. ABDOMEN: No hepatosplenomegaly, normal bowel sounds, no guarding or rigidity. Surgical sites clean dry and well approximated. MARIA DOLORES drain remains in place. SPINE: No scoliosis or deformity SKIN: No rashes CENTRAL NERVOUS SYSTEM: No focal deficits, tone is normal in all 4 extremities. EXTREMITIES: There is no peripheral edema. No clubbing, no cyanosis. Peripheral pulses are intact. - Labs CBC & Chem 7: 03/09/17 06:58 03/09/17 06:58 Labs: Abnormal Lab Results - Last 24 Hours (Table) 03/09/17 03/10/17 03/10/17 Range/Units 17:16 07:20 12:18 POC Glucose (mg/dL) 217 H 149 H 121 H (75-99) mg/dL Microbiology - Last 24 Hours (Table) 03/04/17 09:37 Blood Culture - Final Blood No Growth after 144 hours 03/04/17 20:04 Blood Culture - Preliminary Blood No Growth after 120 hours 03/07/17 14:30 Gram Stain - Final Sputum Sputum Culture - Final Angela albicans Assessment and Plan Plan: Assessment: #1. Acute hypoxic respiratory failure, multifactorial, underlying sleep apnea, there is a component of fluid overload evident on today's chest x-ray and CT chest abdomen and pelvis, and bronchopneumonia. patient has been covered with meropenem during this admission, per ID service she will be switched to oral Augmentin, yesterday we gave a dose of IV Lasix with good diuresis. #1 acute Cholelithiasis status post laparoscopic cholecystectomy, postoperative day #5 #2 Febrile illness of unclear etiology. Urine and blood cultures growth to date. Sputum culture pending. #3 Postoperative atelectasis as an expected post surgical condition. #4 Pulmonary nodules noted on computed tomography scan of the abdomen including a 7 mm subpleural nodule in the left upper lobe, 6 mm subpleural pulmonary nodule in the right middle lobe.could be monitored on outpatient basis #5 Remote history of chronic tobacco dependence. #6 History of aortic valve replacement utilizing a tissue valve. #7 Obstructive sleep apnea, utilizing CPAP in the outpatient setting. #8 Morbid obesity. #9 Hypertension. #10 Diabetes mellitus. #11 Osteoarthritis. Recommendation: He remains stable from pulmonary standpoint, on room air, with O2 sat at 90%. Denies any dyspnea, continue encouraging incentive spirometry use. He was given additional doses of IV Lasix per medical management. Blood pressure is better controlled. He has been cleared for discharge home today. I performed a history & physical examination of the patient and discussed their management with my nurse practitioner, Melisa Glez. I reviewed the nurse practitioner's note and agree with the documented findings and plan of care. Lung sounds are diminished. The findings and the impression was discussed with the patient. I attest to the documentation by the nurse practitioner. Time with Patient: Less than 30
--- NOTE | 2017-03-10 19:45 | PN ---
PROGRESS NOTE DATE OF SERVICE: 03/10/2017 ATTENDING NOTE: This patient was seen and examined by me. I discussed the case with the nurse practitioner Ms. Leroy. Patient is doing much better after getting the Lasix. I adjusted some medications. The patient is doing much better. On examination, temperature 98.2, pulse 67, blood pressure 146/71. Lungs reveal improved air entry. Decreased edema. Essential hypertension is much better controlled. I spoke to Carla, nurse practitioner. The patient from my standpoint can go on the current medications and should follow up with his family doctor. Thank you, Dr. Cantu. MMODL / IJN: [id number] /
--- NOTE | 2017-04-09 18:06 | P.PN ---
Progress Note - Text Progress Note Date: 03/10/17 DATE OF SERVICE: 03/10/2017 Reason for consultation: Medical management requested by Dr. Cantu. HISTORY OF PRESENT ILLNESS: 71-year-old male presented with abdominal pain found to have a gangrenous gallbladder with gallstones. Is now status post laparoscopic cholecystectomy on 03/03/2017. INTERVAL HISTORY: 03/10/2017: Lying in bed appears comfortable.Has a drain in place, eating a regular diet, has moved his bowels. Pain is reasonably well controlled. Had a fever overnight continues on IV meropenem. Has had blood elevated blood pressure. Tolerating his diet, ambulatory in the room and escoto ways. Anxious to go home. REVIEW OF SYSTEMS: Done for constitutional ,cardiovascular, GI, pulmonary with relevant findings as above. CURRENT MEDICATIONS Toradol, hydromorphone, Zofran, Vasotec, Xanax, heparin, lisinopril, labetalol, latanoprost, aspirin, Ativan, Lasix, Zestoretic, docusate sodium, PHYSICAL EXAM VITAL SIGNS: Temperature 98.2, pulse 67, respiratory rate 18, blood pressure 146/71, oxygen saturation 90% on room air. GENERAL APPEARANCE: . Lying in bed, not in distress. HENT: Normocephalic, JVD not raised. Mass not palpable. Oral cavity normal, external appearance of ears and nose normal. EYES:Pupils equal. Conjunctiva normal. RESPIRATORY: Respiratory effort normal. Lungs clear to auscultation. CARDIOVASCULAR: First and second sounds normal. No edema. ABDOMEN: Soft. Liver and spleen not palpable. Tender to palpation No mass palpable. PSYCHIATRY: Alert and oriented x3. Mood and affect normal. INVESTIGATIONS: Accu-Cheks noted ASSESSMENT: -Uncontrolled hypertension in a patient whose blood pressure pressure is rather well-controlled at home. Likely fluid overload. -Diabetes mellitus, type II, on oral hypoglycemics. -Primary osteoarthritis of multiple joints. -Obesity, body mass index of 39.0. -History of aortic valve replacement. -Obstructive sleep apnea uses CPAP machine. -Chronic pulmonary nodules, could be granuloma. For further outpatient workup. -Postoperative fever could be from the gangrenous gallbladder site. Patient is currently on meropenem and clinically the white count is down 4.7. -Acute fluid overload, likely from IV fluids. The patient has some pulmonary edema, slight pleural effusion and dependent edema. PLAN: IV fluids reduced received 2 doses of Lasix and proper blood pressure cuff placed on the patient's arm when taking blood pressure. Medications adjusted to include lisinopril-hydrochlorothiazide. Blood pressure responded well. Concerns regarding alcohol withdrawal patient has a steady habit of alcohol use. Received a small dose of Ativan and responded well. Overall condition is improved from medical standpoint patient is stable for discharge home. FLASH WELDER statement: Patient was seen and examined by nurse practitioner Toña Leroy and all elements of the case discussed with attending Dr. Gan
== END 2017-03-10 14:24 | disposition home health service (06) | DRG 417 ==
LOC: EC 22:05 → 4MS4W 03-02 05:11
PROVIDERS: ADMIT Surgery; ATTEND Surgery
PROC: 0FT44ZZ Resection of Gallbladder, Percutaneous Endoscopic Approach (ICD-10-PCS; principal; 2017-03-03 10:45)
DX: K80.12 Calculus of gallbladder with acute and chronic cholecystitis without obstruction (principal); J96.01 Acute respiratory failure with hypoxia; K83.0 Cholangitis; J98.11 Atelectasis; E66.01 Morbid (severe) obesity due to excess calories; E87.70 Fluid overload, unspecified; N99.89 Other postprocedural complications and disorders of genitourinary system; R33.8 Other retention of urine; K76.1 Chronic passive congestion of liver; F10.10 Alcohol abuse, uncomplicated; M17.0 Bilateral primary osteoarthritis of knee; G47.33 Obstructive sleep apnea (adult) (pediatric); M16.0 Bilateral primary osteoarthritis of hip; E78.5 Hyperlipidemia, unspecified; E78.00 Pure hypercholesterolemia, unspecified; E11.9 Type 2 diabetes mellitus without complications; R91.8 Other nonspecific abnormal finding of lung field; I10 Essential (primary) hypertension; H40.9 Unspecified glaucoma; Z68.39 Body mass index [BMI] 39.0-39.9, adult; Z79.82 Long term (current) use of aspirin; Z79.84 Long term (current) use of oral hypoglycemic drugs; Z79.899 Other long term (current) drug therapy; Z95.1 Presence of aortocoronary bypass graft; Z87.891 Personal history of nicotine dependence; Z98.42 Cataract extraction status, left eye; Z98.41 Cataract extraction status, right eye; Z96.1 Presence of intraocular lens; Z86.010 Personal history of colon polyps; Z95.3 Presence of xenogenic heart valve
CPT/HCPCS: 36415; 71046; 71260; 74018; 74177; 75635; 76705; 80053; 81001; 81003; 82150; 83036; 83605; 83690; 85025; 87040; 87070; 87086; 87205; 88304; 93005; 94640; 94760; 96361; 96374; 96375; 96376; 99285

== ENCOUNTER → 2017-03-15 | Outpatient (CLI) | payer MEDICARE ==
[2017-03-15 11:01] LABS: ALT 82 U/L (21-72); AST 54 U/L (17-59); Albumin 4.2 g/dL (3.5-5.0); Alkaline Phosphatase 127 U/L (38-126); Anion Gap 12 mmol/L; Blood Urea Nitrogen 25 mg/dL (9-20); Calcium 10.1 mg/dL (8.4-10.2); Carbon Dioxide 26 mmol/L (22-30); Chloride 105 mmol/L (98-107); Glucose 137 mg/dL (74-99); Potassium 4.6 mmol/L (3.5-5.1); Sodium 143 mmol/L (137-145); Total Bilirubin 0.5 mg/dL (0.2-1.3); Total Protein 7.8 g/dL (6.3-8.2)
== END | disposition home or self-care (01) ==
LOC: LABWHC1 10:29
DX: Z13.228 Encounter for screening for other metabolic disorders (principal)
CPT/HCPCS: 36415; 80053

== ENCOUNTER 2020-05-23 17:07 | Observation (INO) | payer MEDICARE ==
[2020-05-23] MEDS ORDERED: SODIUM CHLORIDE 0.9% 500 ML 500 ML IV STA (17:13)
--- NOTE | 2020-05-23 17:28 | ED ---
General Adult HPI - General Chief complaint: Syncope Stated complaint: Syncope Time Seen by Provider: 05/23/20 17:10 Source: patient, RN notes reviewed, old records reviewed Mode of arrival: ambulatory Limitations: no limitations - History of Present Illness Initial comments: 74-year-old male presenting for evaluation of syncope. Patient was at the [employer] watch, he had several alcoholic drinks, he stood to go to the restroom and fall with head trauma. He was unconscious momentarily uncertain exactly how long he was unconscious. He denies any preceding chest pain or palpitations. He states all he had the today was one hotdog not much water. He did have several alcoholic beverages. He denies any complaints the time my evaluation. No headache, no focal numbness or weakness. No chest pain or dyspnea. - Related Data Home Medications Medication Instructions Recorded Confirmed Aspirin [Adult Low Dose Aspirin EC] 81 mg PO DAILY 12/17/15 05/23/20 Enalapril [Vasotec] 20 mg PO BID 12/17/15 05/23/20 Labetalol [Trandate] 200 mg PO BID 12/17/15 05/23/20 Pravastatin Sodium [Pravachol] 80 mg PO HS 12/17/15 05/23/20 metFORMIN HCL [Glucophage] 500 mg PO BID 12/17/15 05/23/20 Canagliflozin [Invokana] 100 mg PO DAILY 05/23/20 05/23/20 Ergocalciferol [Vitamin D2 (1250 1,250 mcg PO MO 05/23/20 05/23/20 Mcg = 11383 Iu)] Ezetimibe [Zetia] 10 mg PO HS 05/23/20 05/23/20 Icosapent Ethyl [Vascepa] 1 gm PO BID 05/23/20 05/23/20 Rivaroxaban [Xarelto] 2.5 mg PO BID 05/23/20 05/23/20 Travoprost [Travatan Z 0.004%] 1 drop BOTH EYES HS 05/23/20 05/23/20 Allergies Allergy/AdvReac Type Severity Reaction Status Date / Time No Known Allergies Allergy Verified 05/23/20 18:44 Review of Systems ROS Statement: Those systems with pertinent positive or pertinent negative responses have been documented in the HPI. ROS Other: All systems not noted in ROS Statement are negative. Past Medical History Past Medical History: Diabetes Mellitus, Eye Disorder, Hyperlipidemia, Hypertension, Osteoarthritis (OA), Sleep Apnea/CPAP/BIPAP Additional Past Medical History / Comment(s): NIDDM type II, glaucoma bilateral eyes, NISH with bipap, arthritis bilateral hips/knees. History of Any Multi-Drug Resistant Organisms: None Reported Past Surgical History: Cholecystectomy, Coronary Bypass/CABG, Heart Catheterization, Hernia Repair, Orthopedic Surgery Additional Past Surgical History / Comment(s): 2014 Aortic valve replacement, colonoscopies/benign polypectomy, bilateral cataract removals with lens, circumcism, umbilical hernia repair, r knee arthroscopy. Past Anesthesia/Blood Transfusion Reactions: Previous Problems w/ Anesthesia Additional Past Anesthesia/Blood Transfusion Reaction / Comment(s): HX OF PROB LEMS WITH INTUBATION-STATES THEY TOLD HIM TO INFORM ANESTHESIA WITH ANY SURGERY. Past Psychological History: No Psychological Hx Reported Smoking Status: Never smoker Past Alcohol Use History: Daily Past Drug Use History: None Reported - Past Family History Mother Family Medical History: No Reported History Additional Family Medical History / Comment(s): Mother had heart disease and back problems. Father Family Medical History: Diabetes Mellitus General Exam Limitations: no limitations General appearance: alert, in no apparent distress Head exam: Present: normocephalic, other (Contusion, right frontal) Neck exam: Present: normal inspection. Absent: tenderness, meningismus Respiratory exam: Present: normal lung sounds bilaterally. Absent: respiratory distress, wheezes Cardiovascular Exam: Present: regular rate, normal rhythm GI/Abdominal exam: Present: soft. Absent: distended, tenderness, guarding Extremities exam: Present: normal inspection, normal capillary refill. Absent: pedal edema Neurological exam: Present: alert, oriented X3, CN II-XII intact. Absent: motor sensory deficit Psychiatric exam: Present: normal affect, normal mood Skin exam: Present: warm, dry, intact. Absent: cyanosis, diaphoretic Course Vital Signs 05/23/20 05/23/20 17:14 18:50 Temperature 98.7 F Pulse Rate 74 63 Respiratory 20 20 Rate Blood Pressure 153/80 157/76 O2 Sat by Pulse 95 96 Oximetry EKG Findings - EKG Comments: EKG Findings:: EKG: Sinus rhythm with a first-degree AV block rate of 70 WA interval 304, QRS duration 96, QTC [address] segment elevation. Medical Decision Making - Medical Decision Making 74-year-old presenting for evaluation of syncope, collapse, minor head injury. Patient well-appearing with stable vitals. EKG showing sinus rhythm with first- degree AV block. Chest x-rays negative for acute cardiopulmonary findings, head CT performed given the fall with head injury, this is negative for intracranial hemorrhage or mass effect. He has hemoglobin 12.6, he has elevated BUN, may be secondary to some dehydration. Initial troponin negative, alcohol is only 29. Patient does have prolonged sinus pause on the monitor with bradycardia. Currently attempting to capture on 12-lead EKG. Given this along with dehydration and history of previous replacement. He will be admitted for telemetry, IV hydration, echo. Case discussed with Dr. Ventura who will admit. Cardiology is placed on consult. - Lab Data Result diagrams: 05/23/20 17:20 05/23/20 17:20 Lab Results 05/23/20 05/23/20 05/23/20 Range/Units 17:20 17:20 17:20 WBC 7.0 (3.8-10.6) k/uL RBC 4.27 L (4.30-5.90) m/uL Hgb 12.8 L (13.0-17.5) gm/dL Hct 37.4 L (39.0-53.0) % MCV 87.5 (80.0-100.0) fL MCH 29.8 (25.0-35.0) pg MCHC 34.1 (31.0-37.0) g/dL RDW 14.4 (11.5-15.5) % Plt Count 198 (150-450) k/uL MPV 6.6 Neutrophils % 58 % Lymphocytes % 16 % Monocytes % 4 % Eosinophils % 18 % Basophils % 1 % Neutrophils # 4.0 (1.3-7.7) k/uL Lymphocytes # 1.1 (1.0-4.8) k/uL Monocytes # 0.3 (0-1.0) k/uL Eosinophils # 1.3 H (0-0.7) k/uL Basophils # 0.1 (0-0.2) k/uL PT 11.9 (9.0-12.0) sec INR 1.1 (<1.2) APTT 45.6 H (22.0-30.0) sec Sodium 135 L (137-145) mmol/L Potassium 4.3 (3.5-5.1) mmol/L Chloride 107 (98-107) mmol/L Carbon Dioxide 16 L (22-30) mmol/L Anion Gap 12 mmol/L BUN 31 H (9-20) mg/dL Creatinine 1.24 (0.66-1.25) mg/dL Est GFR (CKD-EPI)AfAm 67 (>60 ml/min/1.73 sqM) Est GFR (CKD-EPI)NonAf 58 (>60 ml/min/1.73 sqM) Glucose 145 H (74-99) mg/dL Calcium 9.2 (8.4-10.2) mg/dL Magnesium 1.8 (1.6-2.3) mg/dL Total Bilirubin 0.4 (0.2-1.3) mg/dL AST 32 (17-59) U/L ALT 35 (4-49) U/L Alkaline Phosphatase 117 (38-126) U/L Troponin I (0.000-0.034) ng/mL Total Protein 7.9 (6.3-8.2) g/dL Albumin 4.5 (3.5-5.0) g/dL Serum Alcohol 29 mg/dL 05/23/20 Range/Units 17:20 WBC (3.8-10.6) k/uL RBC (4.30-5.90) m/uL Hgb (13.0-17.5) gm/dL Hct (39.0-53.0) % MCV (80.0-100.0) fL MCH (25.0-35.0) pg MCHC (31.0-37.0) g/dL RDW (11.5-15.5) % Plt Count (150-450) k/uL MPV Neutrophils % % Lymphocytes % % Monocytes % % Eosinophils % % Basophils % % Neutrophils # (1.3-7.7) k/uL Lymphocytes # (1.0-4.8) k/uL Monocytes # (0-1.0) k/uL Eosinophils # (0-0.7) k/uL Basophils # (0-0.2) k/uL PT (9.0-12.0) sec INR (<1.2) APTT (22.0-30.0) sec Sodium (137-145) mmol/L Potassium (3.5-5.1) mmol/L Chloride (98-107) mmol/L Carbon Dioxide (22-30) mmol/L Anion Gap mmol/L BUN (9-20) mg/dL Creatinine (0.66-1.25) mg/dL Est GFR (CKD-EPI)AfAm (>60 ml/min/1.73 sqM) Est GFR (CKD-EPI)NonAf (>60 ml/min/1.73 sqM) Glucose (74-99) mg/dL Calcium (8.4-10.2) mg/dL Magnesium (1.6-2.3) mg/dL Total Bilirubin (0.2-1.3) mg/dL AST (17-59) U/L ALT (4-49) U/L Alkaline Phosphatase (38-126) U/L Troponin I <0.012 (0.000-0.034) ng/mL Total Protein (6.3-8.2) g/dL Albumin (3.5-5.0) g/dL Serum Alcohol mg/dL Disposition Clinical Impression: Syncope, Dehydration Disposition: ADMITTED IP TO THIS HOSP Condition: Stable Is patient prescribed a controlled substance at d/c from ED?: No Referrals: Abdirashid Santos MD [Primary Care Provider] - 1-2 days Decision to Admit Reason: Admit from EC Decision Date: 05/23/20 Decision Time: 19:23
[2020-05-23 17:36] LABS: Albumin 4.5 g/dL (3.5-5.0); Calcium 9.2 mg/dL (8.4-10.2); Magnesium 1.8 mg/dL (1.6-2.3); Potassium 4.3 mmol/L (3.5-5.1); Total Bilirubin 0.4 mg/dL (0.2-1.3); Total Protein 7.9 g/dL (6.3-8.2)
[2020-05-23 17:38] LABS: Basophils # (A) 0.1 k/uL (0-0.2); Basophils % (A) 1 %; Eosinophils # (A) 1.3 k/uL (0-0.7); Eosinophils % (A) 18 %; HCT 37.4 % (39.0-53.0); HGB 12.8 gm/dL (13.0-17.5); Lymphocytes # (A) 1.1 k/uL (1.0-4.8); Lymphocytes % (A) 16 %; MCH 29.8 pg (25.0-35.0); MCHC 34.1 g/dL (31.0-37.0); MCV 87.5 fL (80.0-100.0); Mean Platelet Volume 6.6; Monocytes # (A) 0.3 k/uL (0-1.0); Monocytes % (A) 4 %; Neutrophils % (A) 58 %; Platelet Count 198 k/uL (150-450); RBC 4.27 m/uL (4.30-5.90); RDW 14.4 % (11.5-15.5)
[2020-05-23 17:46] LABS: INR 1.1 (<1.2); Partial Thromboplastin Time 45.6 sec (22.0-30.0); Prothrombin Time 11.9 sec (9.0-12.0)
--- NOTE | 2020-05-23 18:08 | XR ---
EXAMINATION: XR chest 2V DATE AND TIME: 05/23/2020 5:41 PM CLINICAL INDICATION: PHH; syncope TECHNIQUE: Departmental protocol COMPARISON: 03/08/2017 FINDINGS: Upper sternal sutures are noted. The lungs are relatively underinflated at the moment of x-ray exposure, leading to the pulmonary vasc ulature crowding. Given this factor, there is no definite pulmonary edema radiographically. However, there are a few small scattered horizontal bands of added opacity, likely discoid atelectasis. The pleural spaces are negative. The cardiac silhouette appears mildly enlarged, unchanged. The remainder of the mediastinal silhouett e is unremarkable. The skeletal structures and soft tissues are negative for acute findings. The overlying soft tissues are prominent. IMPRESSION: No definite acute radiographic process.
--- NOTE | 2020-05-23 18:48 | CT ---
EXAMINATION TYPE: CT brain devonine wo con DATE OF EXAM: 05/23/2020 COMPARISON: None HISTORY: Pain after fall CT DLP: 1766 mGycm Automated exposure control for dose reduction was used. TECHNIQUE: CT scan of the head and cervical spine are performed without contrast. FINDINGS: There is no acute intracranial hemorrhage, mass effect, or midline shift identified. The ventricles and sulci are within normal limits in size. The globes are intact and the visualized sin uses are clear. Cervical spine is visualized in its entirety from C1 through upper thoracic levels and demonstrates s atisfactory alignment without evidence of acute fracture or dislocation. Prevertebral soft tissue ap pears within normal limits. The C1-C2 articulation is unremarkable. IMPRESSION: 1. There is no acute fracture or dislocation evident in the cervical spine. 2. No acute intracranial hemorrhage, mass effect, or midline shift is seen.
[2020-05-23] MEDS ORDERED: NALOXONE 0.4 MG/ML 1 ML VIAL IV PRN (19:18)
[2020-05-23] MEDS ORDERED: ACETAMINOPHEN TAB 325 MG TAB PO PRN (19:18)
[2020-05-23] MEDS ORDERED: SODIUM CHLORIDE 0.9% 1,000 ML IV SCH (19:30)
[2020-05-23 21:39] LABS: Appearance,Urine Clear (Clear); Bilirubin,Urine Negative (Negative); Blood,Urine Negative (Negative); Color,Urine Light Yellow; Glucose,Urine (UA) 4+ (Negative); Ketones,Urine Negative (Negative); Leukocyte Esterase,Urine Negative (Negative); Nitrite,Urine Negative (Negative); Protein,Urine Negative (Negative); Specific Gravity,Urine 1.012 (1.001-1.035); Urobilinogen,Urine <2.0 mg/dL (<2.0)
[2020-05-23] MEDS ORDERED: diphenhydrAMINE 25 MG CAP PO STA (23:50)
[2020-05-24] MEDS ORDERED: EZETIMIBE 10 MG TAB PO SCH (00:30)
[2020-05-24] MEDS ORDERED: PRAVASTATIN SODIUM 80 MG TAB PO SCH (00:30)
--- NOTE | 2020-05-24 00:46 | P.HPIM ---
History of Present Illness H&P Date: 05/23/20 Chief Complaint: syncope 74 year old male with DM , Hypertension , NISH patient was drinking at a restaurant today, when he passed out as he was getting up to go to the bathroom, he only had couple beers, nothing unusual for him , that he does occasionally. he believes he fell and hit his head, he is on blood thinner for aortic valve replacement. he denies experiencing any symptoms before or after passing out. he claims to be in good health otherwise. no changes in his medical history , no recent changes in his medications. he came to the hospital for evaluation , and as about being discharged, he was noted to have frequent sinus pauses on the monitor , for which he was kept hospitalized for cardiology eval . he otherwise, denies any fever, chills, chest pain , trouble breathing, irregular heart beats, nausea , or vomiting. he denies any bleeding , changes in bowel or urinary habits, denies any focal neuro deficits. in the ED , blood work showed mild acidosis and hyponatremia , Review of Systems Pertinent positives as noted in HPI. All other systems were reviewed and are negative Past Medical History Past Medical History: Diabetes Mellitus, Eye Disorder, Hyperlipidemia, Hypert ension, Osteoarthritis (OA), Sleep Apnea/CPAP/BIPAP Additional Past Medical History / Comment(s): NIDDM type II, glaucoma bilateral eyes, NISH with bipap, arthritis bilateral hips/knees. History of Any Multi-Drug Resistant Organisms: None Reported Past Surgical History: Cholecystectomy, Coronary Bypass/CABG, Heart Catheteriz ation, Hernia Repair, Orthopedic Surgery Additional Past Surgical History / Comment(s): 2015 Aortic valve replacement, colonoscopies/benign polypectomy, bilateral cataract removals with lens, circumcism, umbilical hernia repair, r knee arthroscopy. Past Anesthesia/Blood Transfusion Reactions: Previous Problems w/ Anesthesia Additional Past Anesthesia/Blood Transfusion Reaction / Comment(s): HX OF PROBLEMS WITH INTUBATION-STATES THEY TOLD HIM TO INFORM ANESTHESIA WITH ANY SURGERY. Past Psychological History: No Psychological Hx Reported Smoking Status: Never smoker Past Alcohol Use History: Daily Past Drug Use History: None Reported - Past Family History Mother Family Medical History: No Reported History Additional Family Medical History / Comment(s): Mother had heart disease and back problems. Father Family Medical History: Diabetes Mellitus Medications and Allergies Home Medications Medication Instructions Recorded Confirmed Type Aspirin [Adult Low Dose Aspirin EC] 81 mg PO DAILY 10/25/16 04/01/21 History Enalapril [Vasotec] 20 mg PO BID 12/17/15 05/23/20 History Labetalol [Trandate] 200 mg PO BID 12/17/15 05/23/20 History Pravastatin Sodium [Pravachol] 80 mg PO HS 12/17/15 05/23/20 History metFORMIN HCL [Glucophage] 500 mg PO BID 12/17/15 05/23/20 History Canagliflozin [Invokana] 100 mg PO DAILY 05/23/20 05/23/20 History Ergocalciferol [Vitamin D2 (1250 1,250 mcg PO MO 05/23/20 05/23/20 History Mcg = 91379 Iu)] Ezetimibe [Zetia] 10 mg PO HS 05/23/20 05/23/20 History Icosapent Ethyl [Vascepa] 1 gm PO BID 05/23/20 05/23/20 History Rivaroxaban [Xarelto] 2.5 mg PO BID 05/23/20 05/23/20 History Travoprost [Travatan Z 0.004%] 1 drop BOTH EYES HS 05/23/20 05/23/20 History Allergies Allergy/AdvReac Type Severity Reaction Status Date / Time No Known Allergies Allergy Verified 05/23/20 18:44 Physical Exam Vitals: Vital Signs Temp Pulse Resp BP Pulse Ox 05/23/20 18:50 63 20 157/76 96 05/23/20 17:14 98.7 F 74 20 153/80 95 Intake and Output 05/23/20 05/23/20 05/23/20 06:59 14:59 22:59 Other: Weight 98.43 kg Constitutional: No acute distress, conversant, pleasant Eyes: Anicteric sclerae, moist conjunctiva, Pupils equal round reactive to light ENMT: NC/AT Oropharynx clear, no erythema, or exudates Neck: Supple, FROM, no masses, or JVD No carotid bruits No thyromegaly Lungs: Clear to auscultation Clear to percussion Normal respiratory effort, no accessory muscle use Cardiovascular: Heart regular in rate and rhythm, No murmurs, gallops, or rubs No peripheral edema Abdominal: Soft Nontender, no guarding, rebound or rigidity Abdomen moving with respiration Normoactive bowel sounds No hepatomegaly, No splenomegaly No palpable mass No abdominal wall hernia noted Skin: Normal temperature, tone, texture, turgor No induration No subcutaneous nodules No rash, lesions No ulcers Extremities: No digital cyanosis No clubbing Pedal pulses intact and symmetrical Radial pulses intact and symmetrical No calf tenderness Psychiatric: Alert and oriented to person, place and time Appropriate affect fair judgement Neuro Muscles Strength 5/5 in all 4 extremities Sensation to light touch grossly present throughout Cranial nerves II-XII grossly intact No focal sensory deficits Lymphatics: no palpable cervical or supraclavicular , or inguinal lymph nodes Results CBC & Chem 7: 05/23/20 17:20 05/23/20 17:20 Labs: Abnormal Lab Results - Last 24 Hours (Table) 05/23/20 05/23/20 05/23/20 Range/Units 17:20 17:20 17:20 RBC 4.27 L (4.30-5.90) m/uL Hgb 12.8 L (13.0-17.5) gm/dL Hct 37.4 L (39.0-53.0) % Eosinophils # 1.3 H (0-0.7) k/uL APTT 45.6 H (22.0-30.0) sec Sodium 135 L (137-145) mmol/L Carbon Dioxide 16 L (22-30) mmol/L BUN 31 H (9-20) mg/dL Glucose 145 H (74-99) mg/dL Assessment and Plan Assessment: syncope hyponatremia frequent sinus pauses possible dehydration , elevated BUN plan quality assurance monitor IVF hydration with normal saline trend cardiac enzymes check echocardiogram check TSH cardiology consult check orthostatic vitals chronic conditions DM , insulin sliding scale hypertension , resume home meds NISH, encourage to use CPAP history of aortic valve replacemet , on blood thinner CODE STATUS:full code DVT prophylaxis: xarelto Discussed with: Patient, ER, RN Anticipated length of stay < than [address]: home A total of 70 minutes was spent on the care of this complex patient more than 50% of the time was spent in counseling and care coordination.
[2020-05-24] MEDS: lisinopriL 20 MG TAB PO SCH ×2 (00:54→08:19)
[2020-05-24] MEDS: LABETALOL 200 MG TAB PO SCH ×2 (00:54→08:19)
[2020-05-24] MEDS: RIVAROXABAN 2.5 MG TABLET PO SCH ×2 (00:55→08:19)
[2020-05-24 07:47] LABS: Glucose,Whole Blood 139 mg/dL (75-99)
[2020-05-24] MEDS: INSULIN ASPART (NovoLOG) 100 UNIT/ML VIAL SQ SCH ×2 (08:18→12:30)
[2020-05-24] MEDS ORDERED: ASPIRIN 81 MG PO SCH (09:00)
--- NOTE | 2020-05-24 10:21 | ECHOF ---
Referral Reason:syncope MEASUREMENTS -------- HEIGHT: 157.5 cm WEIGHT: 98.4 kg BP: 138/69 RVIDd: 3.3 cm (< 3.3) IVSd: 1.4 cm (0.6 - 1.1) LVIDd: 4.6 cm (3.9 - 5.3) LVPWd: 1.4 cm (0.6 - 1.1) IVSs: 1.8 cm LVIDs: 3.3 cm LVPWs: 1.7 cm LA Diam: 3.8 cm (2.7 - 3.8) LAESV Index (A-L): 43.61 ml/m Ao Diam: 2.7 cm (2.0 - 3.7) AV Cusp: 1.6 cm (1.5 - 2.6) MV EXCURSION: 15.856 mm (> 18.000) MV EF SLOPE: 50 mm/s (70 - 150) EPSS: 0.1 cm MV E Abhinav: 1.25 m/s MV DecT: 245 ms MV A Abhinav: 1.38 m/s MV E/A Ratio: 0.91 AV maxP.67 mmHg AV meanP.99 mmHg FINDINGS -------- Sinus rhythm. This was a technically good study. The left ventricular size is normal. There is moderate concentric left ventricular hypertrophy. O verall left ventricular systolic function is normal with, an EF between 60 - 65 %. The right ventricle is mildly enlarged. LA is severely dilated >40 ml/m2 The right atrium is normal in size. Interatrial and interventricular septum intact. Peak/mean gradient across the Aortic Valve is 33.67mmHg / 15.99mmHg. Normally functioning bioprosth etic valve. There is trivial regurgitation of the bioprosthetic aortic valve. The mitral valve leaflets are mildly thickened. Mild mitral annular calcification present. Mild m itral regurgitation is present. Mild tricuspid regurgitation present. There is mild pulmonary hypertension. Trace/mild (physiologic) pulmonic regurgitation. The aortic root size is normal. Normal inferior vena cava with normal inspiratory collapse consistent with estimated right atrial pre ssure of 5 mmHg. There is no pericardial effusion. CONCLUSIONS -------- 1. The left ventricular size is normal. 2. There is moderate concentric left ventricular hypertrophy. 3. Overall left ventricular systolic function is normal with, an EF between 60 - 65 %. 4. The right ventricle is mildly enlarged. 5. LA is severely dilated >40 ml/m2 6. Peak/mean gradient across the Aortic Valve is 33.67mmHg / 15.99mmHg. 7. Normally functioning bioprosthetic valve. 8. There is trivial regurgitation of the bioprosthetic aortic valve. 9. The mitral valve leaflets are mildly thickened. 10. Mild mitral annular calcification present. 11. Mild mitral regurgitation is present. 12. Mild tricuspid regurgitation present. 13. There is mild pulmonary hypertension. 14. Trace/mild (physiologic) pulmonic regurgitation. 15. Normal inferior vena cava with normal inspiratory collapse consistent with estimated right atrial pressure of 5 mmHg. 16. There is no pericardial effusion. SALES [employer] SERVICE ASSOCIATE: HEMANT Casillas
--- NOTE | 2020-05-24 11:30 | P.CRDCN ---
History of Present Illness History of present illness: HISTORY OF PRESENTING ILLNESS This is a pleasant 74-year-old male past medical history significant for hypertension, dyslipidemia, type 2 diabetes, obstructive sleep apnea, severe aortic stenosis s/p aortic valve replacement in July [address] Morrison at [facility]. His quill winder is Dr. Jr Howard at [place]. He states has an appointment with his quill winder on June 06 for a scheduled stress test and carotid ultrasound. We are being consulted for pauses on telemetry and syncope. Patient was at a restaurant yesterday, was getting up to go to the bathroom and had a syncopal episode. He states he had one beer and 2 Truly hard seltzers, he has never had these hard selterz before. He does not remember the event. He remembers people being around him helping him wake up. He is on blood thinner for aortic valve replacement. He denies experiencing any symptoms before or after passing out. Prior to the incident he denies chest pain, shortness of breath, palpitations, dizziness, lightheadedness, or headache. He states he does get dizzy occasionally when standing up. He has never been told he had an irregular rhythm. He denies history of coronary artery disease. He states he has worn a holter monitor before and was told the results were normal. He states he is compliant with his medication. He denies tobacco use. Patient was going to be discharged yesterday but having frequent sinus pauses on monitor. DIAGNOSTICS EKG reveals sinus rhythm with first degree AV block, no significant ST-T wave abnormalities. Piror EKG sinus rhthm with PAC Telemetry tracings indicate sinus mechanism with frequent pauses. Pauses are 2 seconds long, all pauses are under 3 seconds Chest xray no acute cardiopulmonary process. Laboratory reviewed, troponins negative 3, sodium 135, potassium 4.3, serum creatinine 1.24, magnesium 1.8, liver enzymes within normal limits, serum alcohol 29,;covid-19 negative . Current cardiac medications include Detrol to 2.5 mg twice a day, pravastatin 80 mg daily, labetalol 200 mg twice a day, enalapril 20 mg twice a day, aspirin 81 mg daily. 2D echocardiogram 05/23/20: EF 60-65%, RV is mildly enlarged, LA is severely dilated, AV mean gradient 15mmHg, normal functioning of bioprosthetic vavlve, Trivial regurgitation of the bioprosethetic aortic valve, mild MR, mild TR, mild puolmonary hypertension. REVIEW OF SYSTEMS At the time of my exam: CONSTITUTIONAL: Denies fever or chills. CARDIOVASCULAR: Denies chest pain, shortness of breath, orthopnea, PND or palpitations. RESPIRATORY: Denies cough. GASTROINTESTINAL: Denies abdominal pain, diarrhea, constipation, nausea or vomiting. MUSCULOSKELETAL: Denies myalgias. NEUROLOGIC: +occasional dizziness when standing Denies numbness, tingling, headacbe or weakness. ENDOCRINE: Denies fatigue, weight change, polydipsia or polyurina. GENITOURINARY: Denies burning, hematuria or urgency with micturation. HEMATOLOGIC: Denies history of anemia or bleeding. PHYSICAL EXAMINATION CONSTITUTIONAL: No apparent distress. HEENT: Head is normocephalic. Pupils are equal, round. Sclerae anicteric. Mucous membranes of the mouth are moist. No JVD. No carotid bruit. CHEST EXAMINATION: Lungs are clear to auscultation. No chest wall tenderness is noted on palpation or with deep breathing. HEART EXAMINATION: Regular rate and rhythm. S1, S2 heard. aortic valve click noted. Systolic murmur best heard at base noted. No gallops or rub. ABDOMEN: Soft, nontender. Positive bowel sounds. EXTREMITIES: 2+ peripheral pulses, no lower extremity edema and no calf tenderness. SKIN: intact NEUROLOGIC EXAMINATION: Patient is awake, alert and oriented x3. ASSESSMENT Syncope- most likely vasovagal, volume depletion related Hypertension Dyslipidemia Sinus bradycardia with pauses on telemetry Type 2 diabetes Obstructive sleep apnea Severe aortic stenosis s/p aortic valve replacement in July [address] Morrison at [facility]. PLAN -2D echocardiogram completed with no acute findings -Patient should follow up with his quill winder Dr. Howard. He states he has an appointment on June 06 for a scheduled stress test and carotid ultrasound. -Recommend patient undergo outpatient holter monitor with his quill winder- patient understood and will speak to his quill winder about this. Thank you kindly for this consultation. Nurse Practitioner note has been reviewed, I agree with a documented findings and plan of care. Patient was seen and examined. Past Medical History Past Medical History: Diabetes Mellitus, Eye Disorder, Hyperlipidemia, Hypertension, Osteoarthritis (OA), Sleep Apnea/CPAP/BIPAP Additional Past Medical History / Comment(s): NIDDM type II, glaucoma bilateral eyes, NISH with bipap, arthritis bilateral hips/knees. History of Any Multi-Drug Resistant Organisms: None Reported Past Surgical History: Cholecystectomy, Coronary Bypass/CABG, Heart Catheterization, Hernia Repair, Orthopedic Surgery Additional Past Surgical History / Comment(s): 2014 Aortic valve replacement, colonoscopies/benign polypectomy, bilateral cataract removals with lens, circumcism, umbilical hernia repair, r knee arthroscopy. Past Anesthesia/Blood Transfusion Reactions: Previous Problems w/ Anesthesia Additional Past Anesthesia/Blood Transfusion Reaction / Comment(s): HX OF PROBLEMS WITH INTUBATION-STATES THEY TOLD HIM TO INFORM ANESTHESIA WITH ANY SURGERY. Past Psychological History: No Psychological Hx Reported Smoking Status: Never smoker Past Alcohol Use History: Daily Past Drug Use History: None Reported - Past Family History Mother Family Medical History: No Reported History Additional Family Medical History / Comment(s): Mother had heart disease and back problems. Father Family Medical History: Diabetes Mellitus Medications and Allergies Home Medications Medication Instructions Recorded Confirmed Type Aspirin [Adult Low Dose Aspirin EC] 81 mg PO DAILY 12/17/15 05/23/20 History Enalapril [Vasotec] 20 mg PO BID 12/17/15 05/23/20 History Labetalol [Trandate] 200 mg PO BID 12/17/15 05/23/20 History Pravastatin Sodium [Pravachol] 80 mg PO HS 12/17/15 05/23/20 History metFORMIN HCL [Glucophage] 500 mg PO BID 12/17/15 05/23/20 History Canagliflozin [Invokana] 100 mg PO DAILY 05/23/20 05/23/20 History Ergocalciferol [Vitamin D2 (1250 1,250 mcg PO MO 05/23/20 05/23/20 History Mcg = 44226 Iu)] Ezetimibe [Zetia] 10 mg PO HS 05/23/20 05/23/20 History Icosapent Ethyl [Vascepa] 1 gm PO BID 05/23/20 05/23/20 History Rivaroxaban [Xarelto] 2.5 mg PO BID 05/23/20 05/23/20 History Travoprost [Travatan Z 0.004%] 1 drop BOTH EYES HS 05/23/20 05/23/20 History Allergies Allergy/AdvReac Type Severity Reaction Status Date / Time No Known Allergies Allergy Verified 05/23/20 18:44 Physical Exam Vitals: Vital Signs Temp Pulse Pulse Resp BP BP Pulse Ox 05/24/20 04:29 98.0 F 63 16 138/69 96 05/23/20 22:49 98.1 F 68 18 147/79 95 05/23/20 22:40 18 05/23/20 18:50 63 20 157/76 96 05/23/20 17:14 98.7 F 74 20 153/80 95 Intake and Output 05/23/20 05/24/20 05/24/20 22:59 06:59 14:59 Intake Total 1000 Output Total 300 Balance 700 Intake: Intake, IV Titration 600 Amount Sodium Chloride 0.9% 1, 600 000 ml @ 75 mls/hr IV . [id number] [facility] Rx#:[id number] Oral 400 Output: Urine 300 Other: # Voids 1 Weight 98.43 kg Results 05/23/20 17:20 05/23/20 17:20 Cardiac Enzymes 05/23/20 05/23/20 05/23/20 Range/Units 17:20 17:20 20:09 AST 32 (17-59) U/L Troponin I <0.012 <0.012 (0.000-0.034) ng/mL 05/24/20 Range/Units 00:00 AST (17-59) U/L Troponin I <0.012 (0.000-0.034) ng/mL Coagulation 05/23/20 Range/Units 17:20 PT 11.9 (9.0-12.0) sec APTT 45.6 H (22.0-30.0) sec CBC 05/23/20 Range/Units 17:20 WBC 7.0 (3.8-10.6) k/uL RBC 4.27 L (4.30-5.90) m/uL Hgb 12.8 L (13.0-17.5) gm/dL Hct 37.4 L (39.0-53.0) % Plt Count 198 (150-450) k/uL Comprehensive Metabolic Panel 05/23/20 Range/Units 17:20 Sodium 135 L (137-145) mmol/L Potassium 4.3 (3.5-5.1) mmol/L Chloride 107 (98-107) mmol/L Carbon Dioxide 16 L (22-30) mmol/L BUN 31 H (9-20) mg/dL Creatinine 1.24 (0.66-1.25) mg/dL Glucose 145 H (74-99) mg/dL Calcium 9.2 (8.4-10.2) mg/dL AST 32 (17-59) U/L ALT 35 (4-49) U/L Alkaline Phosphatase 117 (38-126) U/L Total Protein 7.9 (6.3-8.2) g/dL Albumin 4.5 (3.5-5.0) g/dL Current Medications Generic Name Dose Route Start Last Admin Trade Name Freq PRN Reason Stop Dose Admin Acetaminophen 650 mg 05/23/20 19:18 Acetaminophen Tab 325 Mg Tab PO Q6HR PRN Mild Pain or Fever > 100.5 Aspirin 81 mg 05/24/20 09:00 Aspirin 81 Mg PO DAILY [facility] Ezetimibe 10 mg 05/24/20 00:30 05/24/20 00:54 Ezetimibe 10 Mg Tab PO 10 mg HS [facility] Administration Sodium Chloride 1,000 mls @ 75 mls/hr 05/23/20 19:30 05/23/20 23:52 Saline 0.9% IV 75 mls/hr .[id number] [facility] Administration Insulin Aspart 0 unit 05/24/20 07:30 Insulin Aspart (Novolog) 100 Unit/Ml Vial SQ ACHS [facility] Protocol Labetalol HCl 200 mg 05/24/20 00:30 05/24/20 00:54 Labetalol 200 Mg Tab PO 200 mg BID [facility] Administration Latanoprost 1 drops 05/24/20 21:00 Latanoprost 0.005% Ophth Drops 2.5 Ml Btl BOTH EYES HS [facility] Lisinopril 20 mg 05/24/20 00:30 05/24/20 00:54 Lisinopril 20 Mg Tab PO 20 mg BID [facility] Administration Naloxone HCl 0.2 mg 05/23/20 19:18 Naloxone 0.4 Mg/Ml 1 Ml Vial IV Q2M PRN Opioid Reversal Pravastatin Sodium 80 mg 05/24/20 00:30 05/24/20 00:54 Pravastatin Sodium 80 Mg Tab PO 80 mg HS [facility] Administration Rivaroxaban 2.5 mg 05/24/20 00:30 05/24/20 00:55 Rivaroxaban 2.5 Mg Tablet PO 2.5 mg BID [facility] Administration Intake and Output 05/23/20 05/24/20 05/24/20 22:59 06:59 14:59 Intake Total 1000 Output Total 300 Balance 700 Intake: Intake, IV Titration 600 Amount Sodium Chloride 0.9% 1, 600 000 ml @ 75 mls/hr IV . [id number] [facility] Rx#:[id number] Oral 400 Output: Urine 300 Other: # Voids 1 Weight 98.43 kg 05/23/20 17:20 05/23/20 17:20
[2020-05-24 12:22] LABS: Glucose,Whole Blood 130 mg/dL (75-99)
[2020-05-24 12:32] LABS: African American GFR (CKD) 77.3 (60.0-200.0); Albumin/Globulin Ratio 1.9 (1.60-3.17); Anion Gap 9.5 mmol/L (4.00-12.00); BUN/Creat Ratio 23.64 Ratio (12.00-20.00); Calcium 9.1 mg/dL (8.7-10.3); Carbon Dioxide 20.5 mmol/L (21.6-31.8); Globulin 2.1 g/dL (1.6-3.3); Non-African American GFR(CKD) 66.7 (60.0-200.0); Potassium 4.1 mmol/L (3.5-5.5); Total Bilirubin 0.4 mg/dL (0.2-1.2); Total Protein 6.1 g/dL (6.2-8.2)
[2020-05-24 14:12] VITALS: BP 141/80; PULSE 64; RESP 18; TEMP 98.5
[2020-05-24] MEDS ORDERED: LATANOPROST 0.005% OPHTH DROPS 2.5 ML BTL BOTH EYES SCH (21:00)
--- NOTE | 2020-05-25 07:24 | P.DS ---
<Tony Gardner - Last Filed: 05/25/20 07:23> Providers Expected date of discharge: 05/24/20 Hospital Course: Discharge Diagnosis: Syncopal episode Frequent sinus pauses Prerenal azotemia, resolved Aortic stenosis status post bioprosthetic aortic valve replacement Hypertension Hyperlipidemia Type II [id number] diabetes mellitus Peripheral vascular disease Hospital Course: Mr. Danial Richardson is a very pleasant 74-year-old male with a past medical history of severe aortic stenosis status post bioprosthetic aortic valve replacement with pigs valve in 2014 at [facility], hypertension, hyperlipidemia, peripheral vascular disease, type II [id number] diabetes mellitus, and obstructive sleep apnea. Patient presents to the hospital after experiencing a syncopal event at the [employer] yesterday evening. Pt reports that he went to the club to meet smothered friends and had a few drinks and as he got up to say goodbye he felt very lightheaded and passed out. He states the next thing he remembers is his friends waking him up and talking to EMS. Patient was taken to the emergency department where he had a full workup completed. His blood glucose was 145. Vital signs were stable. EKG revealed normal sinus rhythm at 70 bpm with a first degree AV block with ID interval of 304 ms, no T-wave or ST abnormalities noted, no signs of acute ischemia. Labs completed-CBC, BMP, coags, liver profile, and urinalysis showing no significant abnormalities, Troponin negative at < 0.012 x 3 draws, and coronavirus PCR negative. CT head and cervical spine negative for acute process. Chest x-ray negative for acute cardiopulmonary process. During time in ED patient was found to have frequent sinus pauses on telemetry monitoring resulting in admission under our services with consult to cardiology. Patient underwent an echocardiogram which revealed a normal EF of 60-65%, moderate concentric left ventricular hypertrophy, a severely dilated left atrium, and trivial regurgitation of the bioprosthetic aortic valve. Patient was seen and evaluated by cardiology, telemetry strips evaluated by cardiology with all reported cardiac pauses lasting less than 3 seconds. Cardiology recommending patient follow up outpatient with water main installer helper for Holter monitoring. Orthostatic vitals completed, patient negative for orthostatic hypotension. Patient has had no further episodes of dizziness or lightheadedness. He denies having any chest pain or palpitations, denies feeling short of breath or experiencing any dyspnea with exertion. Patient's condition is stable at this time. He is being discharged home. No medication changes being made. Patient to continue Xarelto, enalapril, labetalol, pravastatin, and aspirin. Patient to follow-up with PCP Dr. Santos in 2-3 days and follow up with water main installer helper-Dr. Howard as previously scheduled on 06/06/20 for Carotid Dopplers and stress test. Physical exam: Vital signs reviewed and stable. General: non toxic, no distress, appears at stated age, obese Derm: warm, dry Head: atraumatic, normocephalic, symmetric Eyes: EOMI, no lid lag, anicteric sclera Mouth: no lip lesion, mucus membranes moist Cardiovascular: S1S2 reg, no murmur, rub, or gallop noted. Positive posterior tibial pulses palpated bilaterally. Trace bilateral lower extremity edema. Cap refill less than 2 seconds. Lungs: Respirations even, regular, and unlabored on room air. Lungs clear to auscultation bilaterally. No rhonchi, rales, wheezes, or crackles noted. No accessory muscle usage. Abdominal: Obese abdomen, soft, nontender to palpation, no guarding, no appreciable organomegaly Ext: no gross muscle atrophy, no edema, no contractures Neuro: CN II-XII grossly intact, with no focal neuro deficits Psych: Alert, oriented, appropriate affect A total of 45 minutes of time were spent preparing this complex discharge summary. Patient Condition at Discharge: Stable Plan - Discharge Summary Discharge Rx Participant: No New Discharge Prescriptions: Continue Labetalol [Trandate] 200 mg PO BID Enalapril [Vasotec] 20 mg PO BID metFORMIN HCL [Glucophage] 500 mg PO BID Pravastatin Sodium [Pravachol] 80 mg PO HS Aspirin [Adult Low Dose Aspirin EC] 81 mg PO DAILY Travoprost [Travatan Z 0.004%] 1 drop BOTH EYES HS Rivaroxaban [Xarelto] 2.5 mg PO BID Ergocalciferol [Vitamin D2 (1250 Mcg = 97068 Iu)] 1,250 mcg PO MO Canagliflozin [Invokana] 100 mg PO DAILY Icosapent Ethyl [Vascepa] 1 gm PO BID Ezetimibe [Zetia] 10 mg PO HS Discharge Medication List Aspirin [Adult Low Dose Aspirin EC] 81 mg PO DAILY 10/25/16 [History] Enalapril [Vasotec] 20 mg PO BID 12/17/15 [History] Labetalol [Trandate] 200 mg PO BID 12/17/15 [History] Pravastatin Sodium [Pravachol] 80 mg PO HS 12/17/15 [History] metFORMIN HCL [Glucophage] 500 mg PO BID 12/17/15 [History] Canagliflozin [Invokana] 100 mg PO DAILY 05/23/20 [History] Ergocalciferol [Vitamin D2 (1250 Mcg = 35521 Iu)] 1,250 mcg PO MO 05/23/20 [History] Ezetimibe [Zetia] 10 mg PO HS 05/23/20 [History] Icosapent Ethyl [Vascepa] 1 gm PO BID 05/23/20 [History] Rivaroxaban [Xarelto] 2.5 mg PO BID 05/23/20 [History] Travoprost [Travatan Z 0.004%] 1 drop BOTH EYES HS 05/23/20 [History] Follow up Appointment(s)/Referral(s): Abdirashid Santos MD [Primary Care Provider] - 05/31/20 11:00 am Patient Instructions/Handouts: Dehydration (DC), Syncope (DC) Activity/Diet/Wound Care/Special Instructions: Activity: As tolerated. Diet: Heart healthy and carb consistent diet. Special Instructions: Please continue to take your home cardiac medication regimen consisting of Xarelto, enalapril, labetalol, pravastatin, and aspirin. Follow-up with PCP Dr. Santos in 2-3 days and follow up with water main installer helper-Dr. Howard as previously scheduled on 06/06/20 for Carotid Dopplers and stress test. Discuss Holter Monitoring with your water main installer helper during your appointment. You should bring your discharge papers to this appointment with you for your water main installer helper to review. Please remember you will need to be evaluated immediately if you began to experience any further dizziness/lightheadedness, syncopal episodes, changes in your vision or hearing, chest pain, palpitations, or shortness of breath. Thank you for allowing us to participate in your care!! Discharge Disposition: HOME SELF-CARE <Marietta Hamm - Last Filed: 05/25/20 17:52> Providers Date of admission: 05/23/20 19:18 Attending physician: Urvashi Fragoso MD Consults: 05/24/20 01:08 Consult Physician Routine Consulting Provider: Krishna Vidales Consult Reason/Comments: syncope , sinus pauses Do you want consulting provider notified?: Yes, Notify in am Primary care physician: Abdirashid Santos MD Hospital Course: I discussed the care with Tony Gardner NP and reviewed the findings and plan as documented in the note above. I did not staff this patient on this date.
== END 2020-05-24 15:30 | disposition home or self-care (01) ==
LOC: EC 17:07 → 6NMEDSUR 19:18 → 5NMEDONC 22:21
PROVIDERS: ADMIT Internal Medicine; ATTEND Internal Medicine
DX: R55 Syncope and collapse (principal); E87.2 Acidosis; I44.0 Atrioventricular block, first degree; E87.1 Hypo-osmolality and hyponatremia; E11.51 Type 2 diabetes mellitus with diabetic peripheral angiopathy without gangrene; E78.5 Hyperlipidemia, unspecified; I11.9 Hypertensive heart disease without heart failure; G47.33 Obstructive sleep apnea (adult) (pediatric); H40.9 Unspecified glaucoma; M16.0 Bilateral primary osteoarthritis of hip; M17.0 Bilateral primary osteoarthritis of knee; Z99.89 Dependence on other enabling machines and devices; E86.0 Dehydration; R00.1 Bradycardia, unspecified; I08.1 Rheumatic disorders of both mitral and tricuspid valves; I27.20 Pulmonary hypertension, unspecified; Z79.82 Long term (current) use of aspirin; S09.90XA Unspecified injury of head, initial encounter; W18.39XA Other fall on same level, initial encounter; Z79.84 Long term (current) use of oral hypoglycemic drugs; Z79.01 Long term (current) use of anticoagulants; Z79.899 Other long term (current) drug therapy; Z90.49 Acquired absence of other specified parts of digestive tract; Z86.010 Personal history of colon polyps; Z95.1 Presence of aortocoronary bypass graft; Z98.42 Cataract extraction status, left eye; Z98.41 Cataract extraction status, right eye; Z96.1 Presence of intraocular lens; Z95.3 Presence of xenogenic heart valve; Z98.890 Other specified postprocedural states; Z82.49 Family history of ischemic heart disease and other diseases of the circulatory system; Z83.3 Family history of diabetes mellitus
CPT/HCPCS: 99285; 36415; 94760; 93005; 93306; 80053 ×2; 84443; 83605; 83735; 84484 ×2; 85025; 85610; 85730; 81003; 87635; 71046; 72125; 70450; G0378 ×3; G0480; 80320

== ENCOUNTER → 2020-12-02 | Outpatient (CLI) | payer MEDICARE ==
--- NOTE | 2020-12-02 12:37 | US ---
EXAMINATION TYPE: US pelvic limited DATE OF EXAM: 12/02/2020 COMPARISON: NONE CLINICAL HISTORY: N18.2 Chronic kidney disease stage 2 mild. pelvis limited on a male pelvis with rec ent uti Irregular border to willett, with anterior wall thickness of 6mm Bilateral renal jets seen. IMPRESSION: Trabeculated bladder wall could be due to chronic bladder outlet obstruction, correlate for possible cystitis
--- NOTE | 2020-12-02 12:37 | US ---
EXAMINATION TYPE: US kidneys/renal and bladder DATE OF EXAM: 12/02/2020 COMPARISON: Ultrasound 03/02/2017, CT 03/08/2017 CLINICAL HISTORY: N18.2 Chronic kidney disease stage 2 mild. CKD, recent UTI EXAM MEASUREMENTS: Right Kidney: 10.9 x 4.4 x 5.1 cm Left Kidney: 9.5 x 3.4 x 5.2 cm Right Kidney: No hydronephrosis or masses seen Left Kidney: known cyst = 7.4 x 6.4 x 5.4cm Bladder: irregular borders, 6mm wall thickness Bilateral Jets seen: yes, seen on pelvis limited studies There is no evidence for hydronephrosis at this point in time. No nephrolithiasis is seen. No vilma s are identified. Cortical measured differentiation is maintained. The urinary bladder is anechoic. Bilateral ureteral jets are seen. IMPRESSION: Trabeculated bladder wall could be due to chronic bladder outlet obstruction.
== END | disposition home or self-care (01) ==
LOC: RADUSWWP 10:11
PROVIDERS: ATTEND Family Medicine
DX: N18.2 Chronic kidney disease, stage 2 (mild) (principal)
CPT/HCPCS: 76770; 76857

== ENCOUNTER → 2022-02-24 | Outpatient (CLI) | payer MEDICARE ==
--- NOTE | 2022-02-24 13:33 | XR ---
EXAMINATION TYPE: XR chest 2V DATE OF EXAM: 02/24/2022 COMPARISON: Chest x-ray from May 23, 2020 HISTORY: COPD TECHNIQUE: Frontal and lateral views of the chest are obtained. FINDINGS: Cardiomegaly with dual lead pacemaker is now present. Overlying sternal wires redemonstrat ed. Background chronic emphysematous change redemonstrated. New right mid lung nodular opacity. The o sseous structures are intact. IMPRESSION: Cardiomegaly and chronic emphysematous change with new right mid lung nodular consolidat ion and/or underlying nodule. Follow-up advised.
== END | disposition home or self-care (01) ==
LOC: RADXRMAIN 13:01
PROVIDERS: ATTEND Family Medicine
DX: J43.9 Emphysema, unspecified (principal); I51.7 Cardiomegaly; R91.1 Solitary pulmonary nodule
CPT/HCPCS: 71046

== ENCOUNTER 2022-02-27 23:48 | Inpatient (IN) | payer MEDICARE ==
--- NOTE | 2022-02-28 01:33 | XR ---
EXAMINATION TYPE: XR chest 2V DATE OF EXAM: 02/28/2022 COMPARISON: 02/24/2022 HISTORY: Cough TECHNIQUE: 2 views FINDINGS: There is some patchy infiltrate in the right midlung field. There is some patchy infiltrate left lower lobe medially. There is left axillary pacemaker. Costophrenic angles are clear. There is minor spurring in the thoracic spine. IMPRESSION: Bilateral pulmonary infiltrates are increased compared to recent exam. No heart failure s een. Normal heart. Densities more likely related to pneumonia.
--- NOTE | 2022-02-28 03:37 | ED ---
General Adult HPI - General Chief complaint: Upper Respiratory Infection Stated complaint: Cough, Fever Time Seen by Provider: 02/28/22 03:08 Source: patient Mode of arrival: ambulatory Limitations: no limitations - History of Present Illness Initial comments: This is a 76-year-old male with a past medical history including hypertension, diabetes and hyperlipidemia presents emergency department for increasing productive cough. The patient stated that he has had this cough now for the last several days and was seen by his regular physician and was given Augmentin to be taken at home however he stated that he had continued cough and congestion and worsening symptoms. The patient stated a fever of 102F earlier today. The patient stated that he had continued significant episodes of coughing and therefore wanted to be evaluated in the emergency department today. The patient denied any nausea, vomiting as well as any fevers and chills. The patient did not know of any recent sick contacts. - Related Data Home Medications Medication Instructions Recorded Confirmed Aspirin [Adult Low Dose Aspirin EC] 81 mg PO DAILY 12/17/15 05/23/20 Enalapril [Vasotec] 20 mg PO BID 12/17/15 05/23/20 Labetalol [Trandate] 200 mg PO BID 12/17/15 05/23/20 Pravastatin Sodium [Pravachol] 80 mg PO HS 12/17/15 05/23/20 metFORMIN HCL [Glucophage] 500 mg PO BID 12/17/15 05/23/20 Canagliflozin [Invokana] 100 mg PO DAILY 05/23/20 05/23/20 Ergocalciferol [Vitamin D2 (1250 1,250 mcg PO MO 05/23/20 05/23/20 Mcg = 44459 Iu)] Ezetimibe [Zetia] 10 mg PO HS 05/23/20 05/23/20 Rivaroxaban [Xarelto] 2.5 mg PO BID 05/23/20 05/23/20 Travoprost [Travatan Z 0.004%] 1 drop BOTH EYES HS 05/23/20 05/23/20 icosapent ethyL [Vascepa] 1 gm PO BID 05/23/20 05/23/20 Allergies Allergy/AdvReac Type Severity Reaction Status Date / Time No Known Allergies Allergy Verified 05/23/20 18:44 Review of Systems ROS Statement: Those systems with pertinent positive or pertinent negative responses have been documented in the HPI. ROS Other: All systems not noted in ROS Statement are negative. Past Medical History Past Medical History: Diabetes Mellitus, Eye Disorder, Hyperlipidemia, Hypertension, Osteoarthritis (OA), Sleep Apnea/CPAP/BIPAP Additional Past Medical History / Comment(s): NIDDM type II, glaucoma bilateral eyes, NISH with bipap, arthritis bilateral hips/knees. History of Any Multi-Drug Resistant Organisms: None Reported Past Surgical History: Cholecystectomy, Coronary Bypass/CABG, Heart Catheterization, Hernia Repair, Orthopedic Surgery Additional Past Surgical History / Comment(s): 2014 Aortic valve replacement, colonoscopies/benign polypectomy, bilateral cataract removals with lens, circumcism, umbilical hernia repair, r knee arthroscopy. Past Anesthesia/Blood Transfusion Reactions: Previous Problems w/ Anesthesia Additional Past Anesthesia/Blood Transfusion Reaction / Comment(s): HX OF PROBLEMS WITH INTUBATION-STATES THEY TOLD HIM TO INFORM ANESTHESIA WITH ANY SURGERY. Past Psychological History: No Psychological Hx Reported Smoking Status: Never smoker Past Alcohol Use History: Daily Past Drug Use History: None Reported - Past Family History Mother Family Medical History: No Reported History Additional Family Medical History / Comment(s): Mother had heart disease and back problems. Father Family Medical History: Diabetes Mellitus General Exam Limitations: no limitations General appearance: alert, in no apparent distress, obese Head exam: Present: atraumatic, normocephalic, normal inspection Eye exam: Present: normal appearance, PERRL Pupils: Present: normal accommodation ENT exam: Present: normal exam, normal oropharynx, mucous membranes moist Neck exam: Present: normal inspection, full ROM Respiratory exam: Present: normal lung sounds bilaterally Cardiovascular Exam: Present: regular rate, normal rhythm, normal heart sounds GI/Abdominal exam: Present: soft, normal bowel sounds Extremities exam: Present: normal inspection, full ROM Back exam: Present: normal inspection, full ROM Neurological exam: Present: alert, oriented X3, CN II-XII intact Psychiatric exam: Present: normal affect, normal mood Skin exam: Present: warm, dry Course Vital Signs 02/28/22 00:20 Temperature 99.9 F H Pulse Rate 81 Respiratory 18 Rate Blood Pressure 108/55 O2 Sat by Pulse 94 L Oximetry Medical Decision Making - Medical Decision Making Was pt. sent in by a medical professional or institution (, PA, COMMERCIAL DIVER, urgent care, hospital, or halfway...) When possible be specific @ -No Did you speak to anyone other than the patient for history (EMS, parent, family, police, friend...)? What history was obtained from this source @ -No Did you review nursing and triage notes (agree or disagree)? Why? @ -I reviewed and agree with nursing and triage notes Were old charts reviewed (outside hosp., previous admission, EMS record, old EKG, old radiological studies, urgent care reports/EKG's, halfway records)? Report findings @ -No old charts were reviewed Differential Diagnosis (chest pain, altered mental status, abdominal pain women, abdominal pain men, vaginal bleeding, weakness, fever, dyspnea, syncope, headache, dizziness, GI bleed, back pain, seizure, CVA, palpatations, mental health)? @ -URI, COVID-19, influenza, RSV, pneumonia EKG interpreted by me (3pts min.). @ -None as the patient did not describe any chest pain however just had a co ugh. X-rays interpreted by me (1pt min.). @ -Chest x-ray was obtained and was interpreted by myself showing bilateral pulmonary infiltrates that are increased compared to recent exam. Densities most likely related to pneumonia. CT interpreted by me (1pt min.). @ -None done U/S interpreted by me (1pt. min.). @ -None done What testing was considered but not performed or refused? (CT, X-rays, U/S, labs)? Why? @ -None What meds were considered but not given or refused? Why? @ -None Did you discuss the management of the patient with other professionals (professionals i.e. , PA, COMMERCIAL DIVER, lab, RT, psych nurse, director of social media marketing, family lawyer, teacher, adult parole officer, case management specialist)? Give summary @ -Yes, admitting COMMERCIAL DIVER Was smoking cessation discussed for >3mins.? @ -No Was critical care preformed (if so, how long)? @ -No Were there social determinants of health that impacted care today? How? (Homelessness, low income, unemployed, alcoholism, drug addiction, transportation, low edu. Level, literacy, decrease access to med. care, long-term, rehab)? @ -No Was there de-escalation of care discussed even if they declined (Discuss DNR or withdrawal of care, Hospice)? DNR status @ -No What co-morbidities impacted this encounter? (DM, HTN, Smoking, COPD, CAD, Cancer, CVA, ARF, Chemo, Hep., AIDS, mental health diagnosis, sleep apnea, morbid obesity)? @ -Hypertension, diabetes, hyperlipidemia, obesity Was patient admitted / discharged? Hospital course, mention meds given and ro squaxin, prescriptions, significant lab abnormalities, going to OR and other pertinent info. @ -The patient was seen and evaluated emergency department. Physical exam, the patient was resting in bed without any acute distress. Vital signs were stable. Due to the nature the patient's complaints, chest x-ray was obtained as were laboratory workup and swabs. Chest x-ray was concerning for bilateral pneumonia and laboratory workup was obtained because of this. Swabs were negative for influenza, COVID-19 and RSV. The patient was started on IV is azithromycin and Rocephin for community-acquired bilateral pneumonia. Due to the patient's failed outpatient management in the setting of bilateral pneumonia, the patient will be admitted for continued IV antibiotics and management. The patient's primary care physician was being covered by [employer] was contacted at [phone] and accepted the patient for admission. The patient was told of this plan and was agreeable. The patient was admitted in stable condition. Undiagnosed new problem with uncertain prognosis? @ -No Drug Therapy requiring intensive monitoring for toxicity (Heparin, Nitro, Insulin, Cardizem)? @ -No Were any procedures done? @ -No Diagnosis/symptom? @ -Community-acquired bilateral pneumonia Acute, or Chronic, or Acute on Chronic? @ -Acute Uncomplicated (without systemic symptoms) or Complicated (systemic symptoms)? @ -Complicated Side effects of treatment? @ -No Exacerbation, Progression, or Severe Exacerbation? @ -No Poses a threat to life or bodily function? How? (Chest pain, USA, CT, pneumonia, PE, COPD, DKA, ARF, appy, cholecystitis, CVA, Diverticulitis, Homicidal, Suicidal, threat to staff... and all critical care pts) @ -No - Lab Data Result diagrams: 02/28/22 03:31 Lab Results 02/28/22 02/28/22 Range/Units 00:29 03:31 WBC 7.9 (3.8-10.6) k/uL RBC 3.45 L (4.30-5.90) m/uL Hgb 10.5 L (13.0-17.5) gm/dL Hct 29.2 L (39.0-53.0) % MCV 84.5 (80.0-100.0) fL MCH 30.3 (25.0-35.0) pg MCHC 35.8 (31.0-37.0) g/dL RDW 13.4 (11.5-15.5) % Plt Count 333 (150-450) k/uL MPV 7.5 Neutrophils % 76 % Lymphocytes % 12 % Monocytes % 5 % Eosinophils % 2 % Basophils % 0 % Neutrophils # 6.0 (1.3-7.7) k/uL Lymphocytes # 1.0 (1.0-4.8) k/uL Monocytes # 0.4 (0-1.0) k/uL Eosinophils # 0.2 (0-0.7) k/uL Basophils # 0.0 (0-0.2) k/uL Poikilocytosis Slight Influenza Type A (PCR) Not Detected (Not Detectd) Influenza Type B (PCR) Not Detected (Not Detectd) RSV (PCR) Not Detected (Not Detectd) SARS-CoV-2 (PCR) Not Detected (Not Detectd) Disposition Clinical Impression: Bilateral pneumonia Disposition: ADMITTED IP TO THIS HOSP Condition: Stable Is patient prescribed a controlled substance at d/c from ED?: No Referrals: Zeke Burt MD [Primary Care Provider] - 1-2 days Time of Disposition: 03:35 Decision to Admit Reason: Admit from EC Decision Date: 02/28/22 Decision Time: 03:35
[2022-02-28] MEDS ORDERED: cefTRIAXone IN SWFI 1,000 MG/10 ML SYRINGE IVP ONE (03:45)
[2022-02-28 03:49] LABS: Basophils % (A) 0 %; Eosinophils # (A) 0.2 k/uL (0-0.7); Eosinophils % (A) 2 %; HCT 29.2 % (39.0-53.0); HGB 10.5 gm/dL (13.0-17.5); Lymphocytes % (A) 12 %; MCH 30.3 pg (25.0-35.0); MCHC 35.8 g/dL (31.0-37.0); MCV 84.5 fL (80.0-100.0); Mean Platelet Volume 7.5; Monocytes # (A) 0.4 k/uL (0-1.0); Monocytes % (A) 5 %; Neutrophils % (A) 76 %; Platelet Count 333 k/uL (150-450); Poikilocytosis Slight; RBC 3.45 m/uL (4.30-5.90); RDW 13.4 % (11.5-15.5); WBC 7.9 k/uL (3.8-10.6)
[2022-02-28] MEDS ORDERED: NALOXONE 0.4 MG/ML 1 ML VIAL IV PRN (03:58)
[2022-02-28] MEDS ORDERED: AZITHROMYCIN 500 MG in SODIUM CHLORIDE 0.9% 250 ML IVPB ONE (04:00)
[2022-02-28 05:16] LABS: Albumin 3.4 g/dL (3.5-5.0); Calcium 8.6 mg/dL (8.4-10.2); Magnesium 1.9 mg/dL (1.6-2.3); Total Bilirubin 0.9 mg/dL (0.2-1.3); Total Protein 6.6 g/dL (6.3-8.2)
[2022-02-28] MEDS ORDERED: DEXTROSE 50% SYRINGE 50 ML IVP PRN ×2 (10:36)
[2022-02-28 11:40] LABS: Glucose,Whole Blood 537 mg/dL (70-110)
[2022-02-28] MEDS: INSULIN ASPART (NovoLOG) 100 UNIT/ML VIAL SQ SCH ×4 (11:47→20:41)
[2022-02-28] MEDS ORDERED: INSULIN ASPART (NovoLOG) 100 UNIT/ML VIAL SQ ONE (14:15)
[2022-02-28] MEDS ORDERED: HEPARIN SODIUM,PORCINE/PF 5,000 UNIT/0.5 ML SYRINGE SQ SCH (16:00)
[2022-02-28 16:34] LABS: Glucose,Whole Blood 288 mg/dL (70-110)
[2022-02-28 17:41] LABS: Glucose,Whole Blood 409 mg/dL (70-110)
[2022-02-28] MEDS: methylPREDNISolone SOD SUCCI 125 MG/2 ML VIAL IV SCH (17:53)
[2022-02-28 20:42] LABS: Glucose,Whole Blood 280 mg/dL (70-110)
[2022-02-28] MEDS ORDERED: INSULIN DETEMIR (LEVEMIR) 100 UNIT/ML SYR SQ SCH (21:00)
[2022-02-28] MEDS: LATANOPROST 0.005% OPHTH DROPS 2.5 ML BTL BOTH EYES SCH (21:10)
[2022-02-28] MEDS: PRAVASTATIN SODIUM 80 MG TAB PO SCH (21:11)
[2022-02-28] MEDS ORDERED: ACETAMINOPHEN TAB 325 MG TAB PO PRN (21:23)
[2022-02-28] MEDS: guaiFENesin SYRUP 100MG/5ML 200 MG/10 ML CUP PO PRN (21:51)
--- NOTE | 2022-02-28 22:46 | P.HPIM ---
History of Present Illness H&P Date: 02/28/22 Chief Complaint: Shortness of breath Patient is a 76-year-old male with a known history of hypertension, hyperlipidemia, diabetes type 2 [id number], obstructive sleep apnea on BiPAP, osteoarthritis, history of coronary disease status post CABG and daily alcohol use presents to ER with complaints of shortness of breath, cough congestion. Patient has been having symptoms for the past 1 week and was seen by his primary care physician and was started on antibiotics, Augmentin which he has been taking but symptoms have not improving and present. Due to worsening symptoms of shortness of breath and also developed a fever today. Patient has been having severe cough unable to bring up any sputum. Denies any complaints of chest pain or tightness. No nausea vomiting abdominal pain or diarrhea. No cough leg swelling. No recent illnesses otherwise. Chest x-ray showed bilateral pulmonary infiltrates are increased compared to recent exam. No heart failure seen. Normal heart. Densities more likely related to pneumonia. Laboratory test showed WBC 7.9 hemoglobin 10.5 and platelets 333 sodium 134 potassium 5.0 chloride 101 bicarb is 23 BUN 17 and creatinine 0.97 and blood sugar is 380. AST 32 ALT 23 alk phos 130 and albumin 3.4 Influenza A, B, RSV and SARS-CoV-2 not detected. Review of Systems Constitutional: Patient does complain of fever or chills . no Generalized weakness. Abdomen: Patient denied any nausea or vomiting or abd. pain Cardiovascular: Patient denies any chest pain. Complains of short of breath no palpitations. Respiratory: patient complains of cough with minimal sputum production and shortness of breath. Neurologic: Patient denied any numbness or tingling headache. Musculoskeletal: Patient denies any complaints of joint swelling or deformity. Skin: Negative Psychiatric: Negative Endocrine: No heat or cold intolerance. No recent weight gain. Genitourinary: No dysuria or hematuria. All other 14 point ROS negative except the above Past Medical History Past Medical History: Diabetes Mellitus, Eye Disorder, Hyperlipidemia, Hypertension, Osteoarthritis (OA), Sleep Apnea/CPAP/BIPAP Additional Past Medical History / Comment(s): NIDDM type II, glaucoma bilateral eyes, NISH with bipap, arthritis bilateral hips/knees. History of Any Multi-Drug Resistant Organisms: None Reported Past Surgical History: Cholecystectomy, Coronary Bypass/CABG, Heart Catheterization, Hernia Repair, Orthopedic Surgery Additional Past Surgical History / Comment(s): 2014 Aortic valve replacement, colonoscopies/benign polypectomy, bilateral cataract removals with lens, circumc ism, umbilical hernia repair, r knee arthroscopy. Past Anesthesia/Blood Transfusion Reactions: Previous Problems w/ Anesthesia Additional Past Anesthesia/Blood Transfusion Reaction / Comment(s): HX OF PROBLEMS WITH INTUBATION-STATES THEY TOLD HIM TO INFORM ANESTHESIA WITH ANY SURGERY. Past Psychological History: No Psychological Hx Reported Smoking Status: Never smoker Past Alcohol Use History: Daily Past Drug Use History: None Reported - Past Family History Mother Family Medical History: No Reported History Additional Family Medical History / Comment(s): Mother had heart disease and back problems. Father Family Medical History: Diabetes Mellitus Medications and Allergies Home Medications Medication Instructions Recorded Confirmed Type Aspirin [Adult Low Dose Aspirin EC] 81 mg PO DAILY 12/17/15 02/28/22 History Enalapril [Vasotec] 20 mg PO BID 12/17/15 02/28/22 History Labetalol [Trandate] 200 mg PO BID 12/17/15 02/28/22 History Ezetimibe [Zetia] 10 mg PO HS 05/23/20 02/28/22 History Rivaroxaban [Xarelto] 2.5 mg PO BID 05/23/20 02/28/22 History Travoprost [Travatan Z 0.004%] 1 drop BOTH EYES HS 05/23/20 02/28/22 History Amoxicillin/Potassium Clav 1 tab PO Q12H 02/28/22 02/28/22 History [Amox-Clav 875-125 mg Tablet] Rosuvastatin Calcium 20 mg PO HS 02/28/22 02/28/22 History Semaglutide [Rybelsus] 14 mg PO DAILY 02/28/22 02/28/22 History Sodium Bicarbonate Tab 650 mg PO DAILY 02/28/22 02/28/22 History Tamsulosin [Flomax] 0.4 mg PO DAILY 02/28/22 02/28/22 History Allergies Allergy/AdvReac Type Severity Reaction Status Date / Time No Known Allergies Allergy Verified 02/28/22 11:59 Physical Exam Vitals: Vital Signs Temp Pulse Resp BP Pulse Ox 02/28/22 07:00 83 20 113/58 93 L 02/28/22 06:24 16 02/28/22 06:00 72 16 110/55 92 L 02/28/22 05:00 72 16 106/64 93 L 02/28/22 04:00 78 16 115/64 95 02/28/22 03:35 78 16 112/66 96 02/28/22 00:20 99.9 F H 81 18 108/55 94 L Intake and Output 02/27/22 02/28/22 02/28/22 22:59 06:59 14:59 Other: Weight 95.254 kg PHYSICAL EXAMINATION: Patient is lying in the bed comfortably, no acute distress, awake alert and oriented.. HEENT: Normocephalic. Neck is supple. Pupils reactive. Nostrils clear. Oral cavity is moist. Neck reveals no JVD, carotid bruits, or thyromegaly. CHEST EXAMINATION: Trachea is central. Symmetrical expansion. Bilateral diffuse wheezing and rhonchi and diminished sounds.. CARDIAC: Normal S1, S2 with no gallops. No murmurs ABDOMEN: Soft. Bowel sounds present. Nontender. No organomegaly. No abdominal bruits. Extremities: reveal no edema. No clubbing or cyanosis Neurologically awake, alert, oriented x3 with well-coordinated movements. No focal deficits noted Skin: No rash or skin lesions. Psychiatric: Coperative. Nonsuicidal, Musculoskeletal: No joint swelling or deformity. Normal range of motion. Results CBC & Chem 7: 02/28/22 03:31 02/28/22 03:31 Labs: Abnormal Lab Results - Last 24 Hours (Table) 02/28/22 02/28/22 Range/Units 03:31 03:31 RBC 3.45 L (4.30-5.90) m/uL Hgb 10.5 L (13.0-17.5) gm/dL Hct 29.2 L (39.0-53.0) % Sodium 135 L (137-145) mmol/L Glucose 380 H (74-99) mg/dL Alkaline Phosphatase 130 H (38-126) U/L Albumin 3.4 L (3.5-5.0) g/dL Thrombosis Risk Factor Assmnt - DVT/VTE Prophylaxis DVT/VTE Prophylaxis: Pharmacologic Prophylaxis ordered Assessment and Plan Assessment: Worsening shortness of breath secondary to bilateral pneumonia and bronchospasm Reactive bronchospasm Hyperglycemia DuoNebs uncontrolled diabetes type 2 Obstructive sleep apnea on BiPAP Hypertension Hyperlipidemia Glaucoma History of coronary artery disease status post CABG Daily alcohol use DVT prophylaxis patient is on Xarelto 2.5 mg twice daily at home. GI prophylaxis Obesity BMI 39.9. Plan: Patient will be continued on antibiotics at home ceftriaxone and azithromycin. Sputum cultures and blood cultures. Procalcitonin level was ordered. Will be started on methylprednisolone 60 mg every 6 hourly and oxygen supplementation as needed. Continue with duo nebs. Patient will be started on insulin regimen and metformin is on hold. Continue with aspirin, labetalol and enalapril and follow-up closely. Pulmonary will be consulted. Prognosis is guarded with multiple medical problems and comorbid conditions. Time with Patient: Greater than 30
[2022-03-01] MEDS: methylPREDNISolone SOD SUCCI 125 MG/2 ML VIAL IV SCH ×5 (00:03→23:56)
[2022-03-01] MEDS: IPRATROPIUM-ALBUTEROL 3 ML NEB INHALATION PRN ×2 (07:23→15:07)
[2022-03-01 07:41] LABS: Glucose,Whole Blood 300 mg/dL (70-110)
[2022-03-01] MEDS: THIAMINE 100 MG TAB PO SCH (08:43)
[2022-03-01] MEDS: AZITHROMYCIN 500 MG TAB PO SCH (08:43)
[2022-03-01] MEDS: RIVAROXABAN 2.5 MG TABLET PO SCH ×2 (08:43→21:37)
[2022-03-01] MEDS: MULTIVITAMINS, THERA 1 EACH TAB PO SCH (08:43)
[2022-03-01] MEDS: LABETALOL 200 MG TAB PO SCH ×2 (08:43→21:36)
[2022-03-01] MEDS: TAMSULOSIN 0.4 MG CAP.ER.24H PO SCH (08:44)
[2022-03-01] MEDS: INSULIN ASPART (NovoLOG) 100 UNIT/ML VIAL SQ SCH ×7 (08:44→21:10)
[2022-03-01 11:26] LABS: Basophils # (A) 0.03 X 10*3/uL (0.00-0.10); Basophils % (A) 0.4 %; Eosinophils # (A) 0 X 10*3/uL (0.04-0.35); Eosinophils % (A) 0 %; HCT 31.2 % (39.6-50.0); HGB 10.6 g/dL (13.0-17.0); Immature Grans, Automated 1.3 %; Lymphocytes # (A) 0.76 X 10*3/uL (0.90-5.00); Lymphocytes % (A) 9.9 %; MCH 29.4 pg (27.0-32.0); MCV 86.4 fL (80.0-97.0); Mean Platelet Volume 9.4 fL (9.5-12.2); Monocytes # (A) 0.13 X 10*3/uL (0.20-1.00); Monocytes % (A) 1.7 %; NRBC Per 100 WBC 0 /100 WBCS (0.0-0.0); Neutrophils # (A) 6.69 X 10*3/uL (1.80-7.70); Neutrophils % (A) 86.7 %; Platelet Count 365 X 10*3/uL (140-440); RBC 3.61 X 10*6/uL (4.40-5.60); RDW 12.5 % (11.5-14.5); WBC 7.71 X 10*3/uL (4.50-10.00)
[2022-03-01 11:32] LABS: African American GFR (CKD) 78.8 (60.0-200.0); Anion Gap 16.5 mmol/L (10.00-18.00); BUN/Creat Ratio 22.34 Ratio (12.00-20.00); Blood Urea Nitrogen 23.9 mg/dL (9.0-27.0); Calcium 9.2 mg/dL (8.7-10.3); Potassium 4.7 mmol/L (3.5-5.5)
[2022-03-01 12:04] LABS: Glucose,Whole Blood 439 mg/dL (70-110)
--- NOTE | 2022-03-01 13:33 | P.CNPUL ---
History of Present Illness Consult date: 03/01/22 Reason for consult: pneumonia History of present illness: 76-year-old male patient was hospitalized for pneumonia. Initially presented to his primary care physician and he was given a chest x-ray on outpatient basis on 02/24/2022 which showed a moderate in the right upper lobe along with some areas of bilateral pulmonary infiltration. The patient was given a course of Augmentin. He was not improving. He was hospitalized and he was started on a combination of Rocephin and Zithromax. Currently is on room air oxygen. Is feeling much better. His cough and congestion is also improved. No fever or chills. He has screening for viral agents were negative including influenza, Covid 19 and RSV. No chest pain. No pleurisy. No hemoptysis. No swelling lower extremities. No altered mentation. Is known to have diabetes mellitus and is also known to have obstructive sleep apnea maintained on a BiPAP at a pressure of 18/14 cm of water. He has degenerative arthritis hypertension and hyperlipidemia. Review of Systems Constitutional: Reports as per HPI, Reports fatigue, Reports weight gain Eyes: denies as per HPI, denies blurred vision, denies bulging eye, denies de creased vision, denies diplopia, denies discharge, denies dry eye, denies irritation, denies itching, denies pain, denies photophobia, denies loss of peripheral vision, denies loss of vision, denies tunnel vision/blind spots Ears: deny: decreased hearing, ear discharge, earache, tinnitus Ears, nose, mouth and throat: Reports as per HPI Breasts: absent: as per HPI, gynecomastia Cardiovascular: Reports decreased exercise tolerance, Reports dyspnea on exertion Respiratory: Reports dyspnea Gastrointestinal: Reports as per HPI Genitourinary: Reports as per HPI Musculoskeletal: Reports as per HPI Musculoskeletal: absent: ankle pain, ankle stiffness, ankle swelling Integumentary: Reports as per HPI Neurological: Reports as per HPI Psychiatric: Reports as per HPI Endocrine: Reports as per HPI Hematologic/Lymphatic: Reports as per HPI Allergic/Immunologic: Reports as per HPI Past Medical History Past Medical History: Diabetes Mellitus, Eye Disorder, Hyperlipidemia, Hypertension, Osteoarthritis (OA), Sleep Apnea/CPAP/BIPAP Additional Past Medical History / Comment(s): NIDDM type II, glaucoma bilateral eyes, NISH with bipap, arthritis bilateral hips/knees. History of Any Multi-Drug Resistant Organisms: None Reported Past Surgical History: Cholecystectomy, Coronary Bypass/CABG, Heart Catheterization, Hernia Repair, Orthopedic Surgery Additional Past Surgical History / Comment(s): 2014 Aortic valve replacement, colonoscopies/benign polypectomy, bilateral cataract removals with lens, circumcism, umbilical hernia repair, r knee arthroscopy. Past Anesthesia/Blood Transfusion Reactions: Previous Problems w/ Anesthesia Additional Past Anesthesia/Blood Transfusion Reaction / Comment(s): HX OF PROBLEMS WITH INTUBATION-STATES THEY TOLD HIM TO INFORM ANESTHESIA WITH ANY SURGERY. Past Psychological History: No Psychological Hx Reported Smoking Status: Never smoker Past Alcohol Use History: Daily Past Drug Use History: None Reported - Past Family History Mother Family Medical History: No Reported History Additional Family Medical History / Comment(s): Mother had heart disease and back problems. Father Family Medical History: Diabetes Mellitus Medications and Allergies Home Medications Medication Instructions Recorded Confirmed Type Aspirin [Adult Low Dose Aspirin EC] 81 mg PO DAILY 12/17/15 02/28/22 History Enalapril [Vasotec] 20 mg PO BID 12/17/15 02/28/22 History Labetalol [Trandate] 200 mg PO BID 12/17/15 02/28/22 History Ezetimibe [Zetia] 10 mg PO HS 05/23/20 02/28/22 History Rivaroxaban [Xarelto] 2.5 mg PO BID 05/23/20 02/28/22 History Travoprost [Travatan Z 0.004%] 1 drop BOTH EYES HS 05/23/20 02/28/22 History Amoxicillin/Potassium Clav 1 tab PO Q12H 02/28/22 02/28/22 History [Amox-Clav 875-125 mg Tablet] Rosuvastatin Calcium 20 mg PO HS 02/28/22 02/28/22 History Semaglutide [Rybelsus] 14 mg PO DAILY 02/28/22 02/28/22 History Sodium Bicarbonate Tab 650 mg PO DAILY 02/28/22 02/28/22 History Tamsulosin [Flomax] 0.4 mg PO DAILY 02/28/22 02/28/22 History Allergies Allergy/AdvReac Type Severity Reaction Status Date / Time No Known Allergies Allergy Verified 02/28/22 11:59 Physical Exam Vitals: Vital Signs Temp Pulse Pulse Resp BP BP Pulse Ox 03/01/22 11:59 98.8 F 84 18 116/55 97 03/01/22 07:35 98.0 F 86 19 129/69 91 L 03/01/22 07:34 68 03/01/22 07:23 68 03/01/22 02:00 97.0 F L 66 18 155/81 91 L 02/28/22 21:21 99.3 F 02/28/22 20:00 100.4 F H 81 18 149/73 91 L 02/28/22 17:33 98.1 F 88 20 124/67 92 L 02/28/22 17:04 83 94 L 02/28/22 16:00 78 24 110/62 93 L 02/28/22 15:00 79 18 111/72 94 L Intake and Output 02/28/22 03/01/22 03/01/22 22:59 06:59 14:59 Intake Total 300 300 Balance 300 300 Intake: Oral 300 300 Other: Voiding Method Toilet Toilet # Voids 2 Weight 99 kg Patient is lying in the bed comfortably, no acute distress, awake alert and oriented.. HEENT: Normocephalic. Neck is supple. Pupils reactive. Nostrils clear. Oral cavi ty is moist. Neck reveals no JVD, carotid bruits, or thyromegaly. CHEST EXAMINATION: Trachea is central. Symmetrical expansion. Bilateral diffuse wheezing and rhonchi and diminished sounds.. CARDIAC: Normal S1, S2 with no gallops. No murmurs ABDOMEN: Soft. Bowel sounds present. Nontender. No organomegaly. No abdominal bruits. Extremities: reveal no edema. No clubbing or cyanosis Neurologically awake, alert, oriented x3 with well-coordinated movements. No focal deficits noted Skin: No rash or skin lesions. Psychiatric: Coperative. Nonsuicidal, Musculoskeletal: No joint swelling or deformity. Normal range of motion. Results - Laboratory Findings CBC and BMP: 03/01/22 07:52 03/01/22 07:52 ABG WBC 7.71 X 10*3/uL (4.50-10.00) 03/01/22 07:52 RBC 3.61 X 10*6/uL (4.40-5.60) L 03/01/22 07:52 Hgb 10.6 g/dL (13.0-17.0) L 03/01/22 07:52 Hct 31.2 % (39.6-50.0) L 03/01/22 07:52 MCV 86.4 fL (80.0-97.0) 03/01/22 07:52 MCH 29.4 pg (27.0-32.0) 03/01/22 07:52 MCHC 34.0 g/dL (32.0-37.0) 03/01/22 07:52 RDW 12.5 % (11.5-14.5) 03/01/22 07:52 Plt Count 365 X 10*3/uL (140-440) 03/01/22 07:52 MPV 9.4 fL (9.5-12.2) L 03/01/22 07:52 Immature Gran % (Auto) 1.3 % 03/01/22 07:52 Absolute Nucleated RBC 0 X 10*3/uL (0.00-0.00) 03/01/22 07:52 Neutrophils % 86.7 % 03/01/22 07:52 Lymphocytes % 9.9 % 03/01/22 07:52 Monocytes % 1.7 % 03/01/22 07:52 Eosinophils % 0 % 03/01/22 07:52 Basophils % 0.4 % 03/01/22 07:52 Immature Gran # 0.10 X 10*3/uL (0.00-0.04) H 03/01/22 07:52 Neutrophils # 6.69 X 10*3/uL (1.80-7.70) 03/01/22 07:52 Lymphocytes # 0.76 X 10*3/uL (0.90-5.00) L 03/01/22 07:52 Monocytes # 0.13 X 10*3/uL (0.20-1.00) L 03/01/22 07:52 Eosinophils # 0 X 10*3/uL (0.04-0.35) L 03/01/22 07:52 Basophils # 0.03 X 10*3/uL (0.00-0.10) 03/01/22 07:52 NRBC/100 WBC Diff 0 /100 WBCS (0.0-0.0) 03/01/22 07:52 Poikilocytosis Slight 02/28/22 03:31 Sodium 135 mmol/L (135-145) 03/01/22 07:52 Potassium 4.7 mmol/L (3.5-5.5) 03/01/22 07:52 Chloride 98 mmol/L (96-109) 03/01/22 07:52 Carbon Dioxide 20.0 mmol/L (20.0-27.5) 03/01/22 07:52 Anion Gap 16.50 mmol/L (10.00-18.00) 03/01/22 07:52 BUN 23.9 mg/dL (9.0-27.0) 03/01/22 07:52 Creatinine 1.1 mg/dL (0.6-1.5) 03/01/22 07:52 Est GFR (CKD-EPI)AfAm 78.8 (60.0-200.0) 03/01/22 07:52 Est GFR (CKD-EPI)NonAf 68.0 (60.0-200.0) 03/01/22 07:52 BUN/Creatinine Ratio 22.34 Ratio (12.00-20.00) H 03/01/22 07:52 Glucose 298 mg/dL (70-110) H 03/01/22 07:52 POC Glucose (mg/dL) 439 mg/dL (70-110) H 03/01/22 12:02 POC Glu [employer] [facility] Alexandra Penaloza 03/01/22 12:[address] Glu mg/dL 315 02/28/22 03:31 Hemoglobin A1c 12.6 % (0.0-6.0) H 02/28/22 03:31 Calcium 9.2 mg/dL (8.7-10.3) 03/01/22 07:52 Magnesium 1.9 mg/dL (1.6-2.3) 02/28/22 03:31 Total Bilirubin 0.9 mg/dL (0.2-1.3) 02/28/22 03:31 AST 32 U/L (17-59) 02/28/22 03:31 ALT 33 U/L (4-49) 02/28/22 03:31 Alkaline Phosphatase 130 U/L (38-126) H 02/28/22 03:31 Total Protein 6.6 g/dL (6.3-8.2) 02/28/22 03:31 Albumin 3.4 g/dL (3.5-5.0) L 02/28/22 03:31 Procalcitonin 0.22 ng/mL (0.02-0.09) H 02/28/22 03:31 Abnormal lab findings: Abnormal Labs 02/28/22 02/28/22 02/28/22 03:31 03:31 03:31 RBC 3.45 L Hgb 10.5 L Hct 29.2 L MPV Immature Gran # Lymphocytes # Monocytes # Eosinophils # Sodium 135 L BUN/Creatinine Ratio Glucose 380 H POC Glucose (mg/dL) Hemoglobin A1c 12.6 H Alkaline Phosphatase 130 H Albumin 3.4 L Procalcitonin 02/28/22 02/28/22 02/28/22 03:31 11:38 16:32 RBC Hgb Hct MPV Immature Gran # Lymphocytes # Monocytes # Eosinophils # Sodium BUN/Creatinine Ratio Glucose POC Glucose (mg/dL) 537 H 288 H Hemoglobin A1c Alkaline Phosphatase Albumin Procalcitonin 0.22 H 02/28/22 02/28/22 03/01/22 17:37 20:29 07:38 RBC Hgb Hct MPV Immature Gran # Lymphocytes # Monocytes # Eosinophils # Sodium BUN/Creatinine Ratio Glucose POC Glucose (mg/dL) 409 H 280 H 300 H Hemoglobin A1c Alkaline Phosphatase Albumin Procalcitonin 03/01/22 03/01/22 03/01/22 07:52 07:52 12:02 RBC 3.61 L Hgb 10.6 L Hct 31.2 L MPV 9.4 L Immature Gran # 0.10 H Lymphocytes # 0.76 L Monocytes # 0.13 L Eosinophils # 0 L Sodium BUN/Creatinine Ratio 22.34 H Glucose 298 H POC Glucose (mg/dL) 439 H Hemoglobin A1c Alkaline Phosphatase Albumin Procalcitonin - Diagnostic Findings Chest x-ray: image reviewed Assessment and Plan Plan: Pneumonia with another pulmonary infiltrate in the right lung, clinically improving. The patient was treated on outpatient basis with Augmentin and subsequently was hospitalized and the patient is currently on a combination of Rocephin and Zithromax. Less short of breath less bronchospastic and wheezy and the patient's oxygenation is adequate for now. Dyspnea secondary to above, improving Morbidly obese Obstructive sleep apnea maintained on the BiPAP at a pressures of 18/14 cm of water. Diabetes mellitus Hypertension Osteoarthritis Plan Continue current antibiotic coverage. Pro-calcitonin level is mildly elevated. The repeat chest x-ray in the morning. If the infiltrates are unchanged, we'll proceed with a CAT scan of the chest. Clinically is improving. Oxygenation is stable.
[2022-03-01 17:28] LABS: Glucose,Whole Blood 495 mg/dL (70-110)
[2022-03-01 21:03] LABS: Glucose,Whole Blood 519 mg/dL (70-110)
[2022-03-01 21:03] LABS: Glucose,Whole Blood 516 mg/dL (70-110)
[2022-03-01] MEDS ORDERED: INSULIN ASPART (NovoLOG) 100 UNIT/ML VIAL SQ ONE (21:10)
[2022-03-01] MEDS: PRAVASTATIN SODIUM 80 MG TAB PO SCH (21:36)
[2022-03-01] MEDS: INSULIN DETEMIR (LEVEMIR) 100 UNIT/ML SYR SQ SCH (21:36)
[2022-03-01] MEDS: ATORVASTATIN 40 MG TAB PO SCH (21:36)
[2022-03-01] MEDS: LATANOPROST 0.005% OPHTH DROPS 2.5 ML BTL BOTH EYES SCH (21:37)
[2022-03-01] MEDS: guaiFENesin SYRUP 100MG/5ML 200 MG/10 ML CUP PO PRN (23:57)
--- NOTE | 2022-03-02 02:16 | P.PN ---
Subjective Progress Note Date: 03/01/22 Patient is a 76-year-old male with a known history of hypertension, hyperlipidemia, diabetes type 2 [id number], obstructive sleep apnea on BiPAP, osteoarthritis, history of coronary disease status post CABG and daily alcohol use presents to ER with complaints of shortness of breath, cough conge stion. Patient has been having symptoms for the past 1 week and was seen by his primary care physician and was started on antibiotics, Augmentin which he has been taking but symptoms have not improving and present. Due to worsening symptoms of shortness of breath and also developed a fever today. Patient has been having severe cough unable to bring up any sputum. Denies any complaints of chest pain or tightness. No nausea vomiting abdominal pain or diarrhea. No cough leg swelling. No recent illnesses otherwise. Chest x-ray showed bilateral pulmonary infiltrates are increased compared to recent exam. No heart failure seen. Normal heart. Densities more likely related to pneumonia. Laboratory test showed WBC 7.9 hemoglobin 10.5 and platelets 333 sodium 134 potassium 5.0 chloride 101 bicarb is 23 BUN 17 and creatinine 0.97 and blood sugar is 380. AST 32 ALT 23 alk phos 130 and albumin 3.4 Influenza A, B, RSV and SARS-CoV-2 not detected. 03/01/2022 Patient is currently sitting in the chair. Awake alert and oriented x3. Breathing status is better but still having expiratory wheezing. Cough improved. Blood sugar is elevated. Remains on IV steroids and antibiotics. Patient will be continued on insulin regimen and A1c level is 12.6 and procalcitonin level is 0.22. laboratory test showed WBC 7.7 hemoglobin 10.6 and platelets 365 sodium 135 potassium 4.1 chloride 98 bicarb is 20 BUN 23.9 and creatinine 1.1 and blood sugar is 298 this morning. Current medications reviewed. Objective - Vital Signs Vital signs: Vital Signs Temp 98.8 F 03/01/22 11:59 Pulse 76 03/01/22 15:21 Resp 18 03/01/22 11:59 BP 116/55 03/01/22 11:59 Pulse Ox 97 03/01/22 11:59 FiO2 Intake & Output 03/01/22 03/01/22 03/02/22 06:59 18:59 06:59 Intake Total 300 50 Balance 300 50 Weight 99 kg Intake: Intake, IV Titration 50 Amount cefTRIAXone 1 gm In 50 Sodium Chloride 0.9% 50 ml @ 100 mls/hr IVPB Q24H [facility] Rx#:[id number] Oral 300 Other: Voiding Method Toilet Toilet # Voids 2 - Exam PHYSICAL EXAMINATION: Patient is lying in the bed comfortably, no acute distress, awake alert and oriented.. HEENT: Normocephalic. Neck is supple. Pupils reactive. Nostrils clear. Oral cavity is moist. Neck reveals no JVD, carotid bruits, or thyromegaly. CHEST EXAMINATION: Trachea is central. Symmetrical expansion. Bilateral scattered rhonchi and wheezing. Nonlabored breathing... CARDIAC: Normal S1, S2 with no gallops. No murmurs ABDOMEN: Soft. Bowel sounds present. Nontender. No organomegaly. No abdominal bruits. Extremities: reveal no edema. No clubbing or cyanosis Neurologically awake, alert, oriented x3 with well-coordinated movements. No focal deficits noted Skin: No rash or skin lesions. Psychiatric: Coperative. Nonsuicidal, Musculoskeletal: No joint swelling or deformity. Normal range of motion. - Labs CBC & Chem 7: 03/01/22 07:52 03/01/22 07:52 Labs: Abnormal Lab Results - Last 24 Hours (Table) 03/01/22 03/01/22 03/01/22 Range/Units 07:38 07:52 07:52 RBC 3.61 L (4.40-5.60) X 10*6/uL Hgb 10.6 L (13.0-17.0) g/dL Hct 31.2 L (39.6-50.0) % MPV 9.4 L (9.5-12.2) fL Immature Gran # 0.10 H (0.00-0.04) X 10*3/uL Lymphocytes # 0.76 L (0.90-5.00) X 10*3/uL Monocytes # 0.13 L (0.20-1.00) X 10*3/uL Eosinophils # 0 L (0.04-0.35) X 10*3/uL BUN/Creatinine Ratio 22.34 H (12.00-20.00) Ratio Glucose 298 H (70-110) mg/dL POC Glucose (mg/dL) 300 H (70-110) mg/dL 03/01/22 03/01/2223 Range/Units 12:02 17:27 20:59 RBC (4.40-5.60) X 10*6/uL Hgb (13.0-17.0) g/dL Hct (39.6-50.0) % MPV (9.5-12.2) fL Immature Gran # (0.00-0.04) X 10*3/uL Lymphocytes # (0.90-5.00) X 10*3/uL Monocytes # (0.20-1.00) X 10*3/uL Eosinophils # (0.04-0.35) X 10*3/uL BUN/Creatinine Ratio (12.00-20.00) Ratio Glucose (70-110) mg/dL POC Glucose (mg/dL) 439 H 495 H 519 H (70-110) mg/dL 03/01/22 Range/Units 21:00 RBC (4.40-5.60) X 10*6/uL Hgb (13.0-17.0) g/dL Hct (39.6-50.0) % MPV (9.5-12.2) fL Immature Gran # (0.00-0.04) X 10*3/uL Lymphocytes # (0.90-5.00) X 10*3/uL Monocytes # (0.20-1.00) X 10*3/uL Eosinophils # (0.04-0.35) X 10*3/uL BUN/Creatinine Ratio (12.00-20.00) Ratio Glucose (70-110) mg/dL POC Glucose (mg/dL) 516 H (70-110) mg/dL Microbiology - Last 24 Hours (Table) 02/28/22 04:30 Blood Culture - Preliminary Blood No Growth after 24 hours 02/28/22 04:10 Blood Culture - Preliminary Blood No Growth after 24 hours Assessment and Plan Assessment: Worsening shortness of breath secondary to bilateral pneumonia and bronchospasm. improving Reactive bronchospasm Hyperglycemia DuoNebs uncontrolled diabetes type 2 Obstructive sleep apnea on BiPAP Hypertension Hyperlipidemia Glaucoma History of coronary artery disease status post CABG Daily alcohol use DVT prophylaxis patient is on Xarelto 2.5 mg twice daily at home. GI prophylaxis Obesity BMI 39.9. Plan: Patient will be continued on antibiotics at home ceftriaxone and azithromycin. Sputum cultures and blood cultures. Procalcitonin level 0.33. started on methylprednisolone 60 mg every 6 hourly and oxygen supplementation as needed. Continue with duo nebs. Continue with insulin regimen. Titrate dose as needed. Patient will need insulin supplies upon discharge. Pulmonary is on board. Continue with aspirin, labetalol and enalapril and follow-up closely. Prognosis is guarded with multiple medical problems and comorbid conditions. Time with Patient: Greater than 30
[2022-03-02 02:22] LABS: Glucose,Whole Blood 321 mg/dL (70-110)
[2022-03-02] MEDS: methylPREDNISolone SOD SUCCI 125 MG/2 ML VIAL IV SCH ×2 (05:51→13:34)
[2022-03-02 06:55] LABS: Glucose,Whole Blood 299 mg/dL (70-110)
--- NOTE | 2022-03-02 08:09 | XR ---
EXAMINATION TYPE: XR chest 1V DATE OF EXAM: 03/02/2022 CLINICAL HISTORY: Difficulty breathing and pneumonia progress study. TECHNIQUE: Single AP portable upright view of the chest is obtained. COMPARISON: Chest x-ray from 2 days earlier FINDINGS: There is cardiomegaly with dual lead pacemaker redemonstrated. There is right mid lung and bibasilar opacities redemonstrated. Overlying sternal wires are again seen. Osseous structures are i ntact. IMPRESSION: Cardiomegaly with Right mid lung and bibasilar acute infiltrates and/or atelectasis. No s ignificant change from prior.
[2022-03-02] MEDS: TAMSULOSIN 0.4 MG CAP.ER.24H PO SCH (09:08)
[2022-03-02] MEDS: THIAMINE 100 MG TAB PO SCH (09:08)
[2022-03-02] MEDS: AZITHROMYCIN 500 MG TAB PO SCH (09:09)
[2022-03-02] MEDS: INSULIN ASPART (NovoLOG) 100 UNIT/ML VIAL SQ SCH ×7 (09:09→20:48)
[2022-03-02] MEDS: MULTIVITAMINS, THERA 1 EACH TAB PO SCH (09:09)
[2022-03-02] MEDS: RIVAROXABAN 2.5 MG TABLET PO SCH ×2 (09:10→20:49)
[2022-03-02] MEDS: LABETALOL 200 MG TAB PO SCH ×2 (09:11→20:49)
[2022-03-02 10:40] LABS: Basophils # (A) 0.02 X 10*3/uL (0.00-0.10); Basophils % (A) 0.2 %; Eosinophils # (A) 0 X 10*3/uL (0.04-0.35); Eosinophils % (A) 0 %; HCT 29.3 % (39.6-50.0); HGB 9.8 g/dL (13.0-17.0); Immature Grans, Automated 1.9 %; Lymphocytes # (A) 0.87 X 10*3/uL (0.90-5.00); Lymphocytes % (A) 6.8 %; MCH 28.7 pg (27.0-32.0); MCHC 33.4 g/dL (32.0-37.0); MCV 85.9 fL (80.0-97.0); Monocytes # (A) 0.54 X 10*3/uL (0.20-1.00); Monocytes % (A) 4.2 %; NRBC Per 100 WBC 0 /100 WBCS (0.0-0.0); Neutrophils % (A) 86.9 %; Platelet Count 384 X 10*3/uL (140-440); RBC 3.41 X 10*6/uL (4.40-5.60); RDW 12.8 % (11.5-14.5); WBC 12.87 X 10*3/uL (4.50-10.00)
[2022-03-02 10:47] LABS: African American GFR (CKD) 76.2 (60.0-200.0); Anion Gap 17.3 mmol/L (10.00-18.00); BUN/Creat Ratio 26.27 Ratio (12.00-20.00); Blood Urea Nitrogen 28.9 mg/dL (9.0-27.0); Calcium 9.3 mg/dL (8.7-10.3); Carbon Dioxide 17.7 mmol/L (20.0-27.5); Non-African American GFR(CKD) 65.8 (60.0-200.0); Potassium 4.6 mmol/L (3.5-5.5)
--- NOTE | 2022-03-02 12:00 | P.PN ---
Subjective Progress Note Date: 03/02/22 Principal diagnosis: Community acquired pneumonia 76-year-old male patient was hospitalized for pneumonia. Initially presented to his primary care physician and he was given a chest x-ray on outpatient basis on 02/24/2022 which showed a moderate in the right upper lobe along with some areas of bilateral pulmonary infiltration. The patient was given a course of Augmentin. He was not improving. He was hospitalized and he was started on a combination of Rocephin and Zithromax. Currently is on room air oxygen. Is feeling much better. His cough and congestion is also improved. No fever or chills. He has screening for viral agents were negative including influenza, Co vid 19 and RSV. No chest pain. No pleurisy. No hemoptysis. No swelling lower extremities. No altered mentation. Is known to have diabetes mellitus and is also known to have obstructive sleep apnea maintained on a BiPAP at a pressure of 18/14 cm of water. He has degenerative arthritis hypertension and hyperlipidemia. Evaluating this patient today on 03/02/2022 on general medical floor. Patient is sitting comfortably in chair, on room air. He is in no apparent distress, no conversational dyspnea, or accessory muscle use. Patient reports persistent nonproductive cough. Patient denies fevers overnight. X-ray from today shows cardiomegaly with right lung and bibasilar acute infiltrates. Blood cultures show no growth at 48 hours. CBC from today shows mild leukocytosis with a WBC c ount of 12.9, and 9.8, hematocrit 29.3, platelets 384,000. BMP from today was stable with a sodium 136, potassium 4.6, chloride 101, serum CO2 was 18, BUN 29, creatinine 1.1, glucose 274. Patient's glucose has remained fairly elevated overnight. He is receiving IV Solu-Medrol. Glucose is being managed with sliding scale insulin before meals and Levemir at night. Patient is receiving a combination of Rocephin and Zithromax for empiric antibiotic therapy. Patient's vital signs remain hemodynamically stable. Objective - Vital Signs Vital signs: Vital Signs Temp 97.5 F L 03/02/22 07:27 Pulse 72 03/02/22 08:00 Resp 20 03/02/22 08:00 BP 136/67 03/02/22 07:27 Pulse Ox 95 03/02/22 07:27 FiO2 Intake & Output 03/01/22 03/02/22 03/02/22 18:59 06:59 18:59 Intake Total 50 Balance 50 Intake: Intake, IV Titration 50 Amount cefTRIAXone 1 gm In 50 Sodium Chloride 0.9% 50 ml @ 100 mls/hr IVPB Q24H [facility] Rx#:[id number] Other: Voiding Method Toilet Toilet Toilet # Voids 1 - Exam Patient is lying in the bed comfortably, no acute distress, awake alert and oriented.. HEENT: Normocephalic. Neck is supple. Pupils reactive. Nostrils clear. Oral cavity is moist. Neck reveals no JVD, carotid bruits, or thyromegaly. CHEST EXAMINATION: Patient's lungs sounds are clear and equal throughout. No rhonchi, wheezes, crackles.. On room air, no accessory muscle use, no conversational dyspnea. CARDIAC: Normal S1, S2 with no gallops. No murmurs ABDOMEN: Soft. Bowel sounds present. Nontender. No organomegaly. No abdominal bruits. Extremities: reveal no edema. No clubbing or cyanosis Neurologically awake, alert, oriented x3 with well-coordinated movements. No focal deficits noted Skin: No rash or skin lesions. Musculoskeletal: No joint swelling or deformity. Normal range of motion. - Labs CBC & Chem 7: 03/02/22 06:25 03/02/22 06:25 Labs: Abnormal Lab Results - Last 24 Hours (Table) 03/01/22 03/01/22 03/01/22 Range/Units 12:02 17:27 20:59 WBC (4.50-10.00) X 10*3/uL RBC (4.40-5.60) X 10*6/uL Hgb (13.0-17.0) g/dL Hct (39.6-50.0) % MPV (9.5-12.2) fL Immature Gran # (0.00-0.04) X 10*3/uL Neutrophils # (1.80-7.70) X 10*3/uL Lymphocytes # (0.90-5.00) X 10*3/uL Eosinophils # (0.04-0.35) X 10*3/uL Carbon Dioxide (20.0-27.5) mmol/L BUN (9.0-27.0) mg/dL BUN/Creatinine Ratio (12.00-20.00) Ratio Glucose (70-110) mg/dL POC Glucose (mg/dL) 439 H 495 H 519 H (70-110) mg/dL 03/01/22 03/02/22 03/02/22 Range/Units 21:00 02:19 06:25 WBC 12.87 H (4.50-10.00) X 10*3/uL RBC 3.41 L (4.40-5.60) X 10*6/uL Hgb 9.8 L (13.0-17.0) g/dL Hct 29.3 L (39.6-50.0) % MPV 9.0 L (9.5-12.2) fL Immature Gran # 0.24 H (0.00-0.04) X 10*3/uL Neutrophils # 11.20 H (1.80-7.70) X 10*3/uL Lymphocytes # 0.87 L (0.90-5.00) X 10*3/uL Eosinophils # 0 L (0.04-0.35) X 10*3/uL Carbon Dioxide (20.0-27.5) mmol/L BUN (9.0-27.0) mg/dL BUN/Creatinine Ratio (12.00-20.00) Ratio Glucose (70-110) mg/dL POC Glucose (mg/dL) 516 H 321 H (70-110) mg/dL 03/02/22 03/02/22 Range/Units 06:25 06:52 WBC (4.50-10.00) X 10*3/uL RBC (4.40-5.60) X 10*6/uL Hgb (13.0-17.0) g/dL Hct (39.6-50.0) % MPV (9.5-12.2) fL Immature Gran # (0.00-0.04) X 10*3/uL Neutrophils # (1.80-7.70) X 10*3/uL Lymphocytes # (0.90-5.00) X 10*3/uL Eosinophils # (0.04-0.35) X 10*3/uL Carbon Dioxide 17.7 L (20.0-27.5) mmol/L BUN 28.9 H (9.0-27.0) mg/dL BUN/Creatinine Ratio 26.27 H (12.00-20.00) Ratio Glucose 274 H (70-110) mg/dL POC Glucose (mg/dL) 299 H (70-110) mg/dL Microbiology - Last 24 Hours (Table) 02/28/22 04:30 Blood Culture - Preliminary Blood No Growth after 48 hours 02/28/22 04:10 Blood Culture - Preliminary Blood No Growth after 48 hours Assessment and Plan Assessment: Pneumonia with another pulmonary infiltrate in the right lung, clinically improving. The patient was treated on outpatient basis with Augmentin and subsequently was hospitalized and the patient is currently on a combination of Rocephin and Zithromax. Less short of breath less bronchospastic and wheezy and the patient's oxygenation is adequate for now. Dyspnea secondary to above, improving chronic normocytic anemia. No signs of blood loss. Morbidly obese Obstructive sleep apnea. maintained on the BiPAP at a pressures of 18/14 cm of water at bedtime. Diabetes mellitus Hypertension Osteoarthritis Plan: Patient's medications, labs, chest x-ray reviewed. Continue empiric antibiotic therapy in the form of Rocephin and Zithromax. We'll switch to by mouth antibiotics for discharge. Continue IV Solu-Medrol. Primary continues to manage hyperglycemia, and make insulin titrations Patient is clinically improving he We will continue to follow. I have personally seen and examined the patient, performed the documentation and the assessment and plan as written. Number of minutes spent on the visit: 10. Time with Patient: Less than 30
[2022-03-02 12:15] LABS: Glucose,Whole Blood 352 mg/dL (70-110)
[2022-03-02 12:42] VITALS: BMI 39.9
[2022-03-02] MEDS ORDERED: BENZONATATE 100 MG CAP PO PRN (14:54)
--- NOTE | 2022-03-02 15:03 | P.PN ---
Subjective Progress Note Date: 03/02/22 Patient is a 76-year-old male with a known history of hypertension, hyperlipidemia, diabetes type 2 [id number], obstructive sleep apnea on BiPAP, osteoarthritis, history of coronary disease status post CABG and daily alcohol use presents to ER with complaints of shortness of breath, cough conge stion. Patient has been having symptoms for the past 1 week and was seen by his primary care physician and was started on antibiotics, Augmentin which he has been taking but symptoms have not improving and present. Due to worsening symptoms of shortness of breath and also developed a fever today. Patient has been having severe cough unable to bring up any sputum. Denies any complaints of chest pain or tightness. No nausea vomiting abdominal pain or diarrhea. No cough leg swelling. No recent illnesses otherwise. Chest x-ray showed bilateral pulmonary infiltrates are increased compared to recent exam. No heart failure seen. Normal heart. Densities more likely related to pneumonia. Laboratory test showed WBC 7.9 hemoglobin 10.5 and platelets 333 sodium 134 potassium 5.0 chloride 101 bicarb is 23 BUN 17 and creatinine 0.97 and blood sugar is 380. AST 32 ALT 23 alk phos 130 and albumin 3.4 Influenza A, B, RSV and SARS-CoV-2 not detected. 03/01/2022 Patient is currently sitting in the chair. Awake alert and oriented x3. Breathing status is better but still having expiratory wheezing. Cough improved. Blood sugar is elevated. Remains on IV steroids and antibiotics. Patient will be continued on insulin regimen and A1c level is 12.6 and procalcitonin level is 0.22. laboratory test showed WBC 7.7 hemoglobin 10.6 and platelets 365 sodium 135 potassium 4.1 chloride 98 bicarb is 20 BUN 23.9 and creatinine 1.1 and blood sugar is 298 this morning. 03/02/2022 Patient sitting up at bedside today. Reports overall cough has improved. No wheezing noted on exam today. Chest xray today showing cardiomegaly with right midlung and bibasilar acute infiltrates and or atelectasis. He does continue with bronchospastic cough and he is requesting for something for the cough. Robitussin in place and Tessalon has been added. Continues on duonebs as needed. Completed course of IV ceftriaxone and will continue on oral cefdinir and also oral azithromycin. A1C 12.6 and discussed with patient blood glucose management and will D/C on lantus HS and also glipizide. Remains afebrile, heart rate 70, blood pressure 152/67, 94% on room air. Review of Systems Constitutional: Denied any fatigue denied any fever. Cardio vascular: denied any chest pain, palpitations Gastrointestinal: denied any nausea, vomiting, diarrhea Pulmonary: Denied any shortness of breath cough Neurologic denied any new focal deficits All inpatient medications were reviewed and appropriate changes in these med ications as dictated in the interval history and assessment and plan. PHYSICAL EXAMINATION: GENERAL: The patient is alert and oriented x3, not in any acute distress. Well developed, well nourished. HEENT: Pupils are round and equally reacting to light. EOMI. No scleral icterus. No conjunctival pallor. Normocephalic, atraumatic. No pharyngeal erythema. No thyromegaly. CARDIOVASCULAR: S1 and S2 present. No murmurs, rubs, or gallops. PULMONARY: Chest is clear to auscultation, no wheezing or crackles. ABDOMEN: Soft, nontender, nondistended, normoactive bowel sounds. No palpable organomegaly. MUSCULOSKELETAL: No joint swelling or deformity. EXTREMITIES: No cyanosis, clubbing, or pedal edema. NEUROLOGICAL: Gross neurological examination did not reveal any focal deficits. SKIN: No rashes. Assessment and Plan Assessment Worsening shortness of breath secondary to bilateral pneumonia and bronchospasm. improving Reactive bronchospasm Uncontrolled diabetes type 2 with hemoglobin A1C of 12.6. Obstructive sleep apnea on BiPAP Hypertension Hyperlipidemia Glaucoma History of coronary artery disease status post CABG History aortic stenosis status post biprosthetic aortic valve replacement with pig valve in 2014 Daily alcohol use DVT prophylaxis patient is on Xarelto 2.5 mg twice daily at home. GI prophylaxis Obesity BMI 39.9. Full Code Plan Continue oral antibiotics, steroids Encourage incentive spirometery Continue supportive care Require close follow up outpatient for glycemic control Monitor overnight possible D/C in the next 24 to 48 hours The impression and plan of care has been dictated by Vira Hinojosa, Nurse Practitioner as directed. Dr. Dustin MD I have performed a history and physical examination and medical decision making of this patient, discussed the same with the dictator, and agree with the dictators assessment and plan as written, documented as a scribe. Based on total visit time, I have performed more than 50% of this visit. Objective - Vital Signs Vital signs: Vital Signs Temp 98.3 F 03/02/22 12:39 Pulse 70 03/02/22 12:39 Resp 20 03/02/22 12:39 BP 152/67 03/02/22 12:39 Pulse Ox 94 L 03/02/22 12:39 FiO2 Intake & Output 03/01/22 03/02/22 03/02/22 18:59 06:59 18:59 Intake Total 50 Balance 50 Weight 99 kg Intake: Intake, IV Titration 50 Amount cefTRIAXone 1 gm In 50 Sodium Chloride 0.9% 50 ml @ 100 mls/hr IVPB Q24H [facility] Rx#:[id number] Other: Voiding Method Toilet Toilet Toilet # Voids 1 - Labs CBC & Chem 7: 03/02/22 06:25 03/02/22 06:25 Labs: Abnormal Lab Results - Last 24 Hours (Table) 03/01/22 03/01/22 03/01/22 Range/Units 17:27 20:59 21:00 WBC (4.50-10.00) X 10*3/uL RBC (4.40-5.60) X 10*6/uL Hgb (13.0-17.0) g/dL Hct (39.6-50.0) % MPV (9.5-12.2) fL Immature Gran # (0.00-0.04) X 10*3/uL Neutrophils # (1.80-7.70) X 10*3/uL Lymphocytes # (0.90-5.00) X 10*3/uL Eosinophils # (0.04-0.35) X 10*3/uL Carbon Dioxide (20.0-27.5) mmol/L BUN (9.0-27.0) mg/dL BUN/Creatinine Ratio (12.00-20.00) Ratio Glucose (70-110) mg/dL POC Glucose (mg/dL) 495 H 519 H 516 H (70-110) mg/dL 03/02/22 03/02/22 03/02/22 Range/Units 02:19 06:25 06:25 WBC 12.87 H (4.50-10.00) X 10*3/uL RBC 3.41 L (4.40-5.60) X 10*6/uL Hgb 9.8 L (13.0-17.0) g/dL Hct 29.3 L (39.6-50.0) % MPV 9.0 L (9.5-12.2) fL Immature Gran # 0.24 H (0.00-0.04) X 10*3/uL Neutrophils # 11.20 H (1.80-7.70) X 10*3/uL Lymphocytes # 0.87 L (0.90-5.00) X 10*3/uL Eosinophils # 0 L (0.04-0.35) X 10*3/uL Carbon Dioxide 17.7 L (20.0-27.5) mmol/L BUN 28.9 H (9.0-27.0) mg/dL BUN/Creatinine Ratio 26.27 H (12.00-20.00) Ratio Glucose 274 H (70-110) mg/dL POC Glucose (mg/dL) 321 H (70-110) mg/dL 03/02/22 03/02/22 Range/Units 06:52 12:13 WBC (4.50-10.00) X 10*3/uL RBC (4.40-5.60) X 10*6/uL Hgb (13.0-17.0) g/dL Hct (39.6-50.0) % MPV (9.5-12.2) fL Immature Gran # (0.00-0.04) X 10*3/uL Neutrophils # (1.80-7.70) X 10*3/uL Lymphocytes # (0.90-5.00) X 10*3/uL Eosinophils # (0.04-0.35) X 10*3/uL Carbon Dioxide (20.0-27.5) mmol/L BUN (9.0-27.0) mg/dL BUN/Creatinine Ratio (12.00-20.00) Ratio Glucose (70-110) mg/dL POC Glucose (mg/dL) 299 H 352 H (70-110) mg/dL Microbiology - Last 24 Hours (Table) 02/28/22 04:30 Blood Culture - Preliminary Blood No Growth after 48 hours 02/28/22 04:10 Blood Culture - Preliminary Blood No Growth after 48 hours Assessment and Plan Time with Patient: Less than 30
[2022-03-02 17:29] LABS: Glucose,Whole Blood 304 mg/dL (70-110)
[2022-03-02 19:15] VITALS: RESP 18
[2022-03-02] MEDS: IPRATROPIUM-ALBUTEROL 3 ML NEB INHALATION PRN (19:59)
[2022-03-02 20:23] LABS: Glucose,Whole Blood 325 mg/dL (70-110)
[2022-03-02] MEDS: ATORVASTATIN 40 MG TAB PO SCH (20:48)
[2022-03-02] MEDS: guaiFENesin SYRUP 100MG/5ML 200 MG/10 ML CUP PO PRN (20:48)
[2022-03-02] MEDS: LATANOPROST 0.005% OPHTH DROPS 2.5 ML BTL BOTH EYES SCH (20:48)
[2022-03-02] MEDS: INSULIN DETEMIR (LEVEMIR) 100 UNIT/ML SYR SQ SCH (20:48)
[2022-03-02] MEDS: PRAVASTATIN SODIUM 80 MG TAB PO SCH (20:49)
[2022-03-03 07:04] LABS: Glucose,Whole Blood 108 mg/dL (70-110)
[2022-03-03] MEDS: IPRATROPIUM-ALBUTEROL 3 ML NEB INHALATION PRN ×2 (07:04→10:49)
[2022-03-03 07:55] VITALS: BP 121/68; TEMP 97.6
[2022-03-03] MEDS: INSULIN ASPART (NovoLOG) 100 UNIT/ML VIAL SQ SCH ×4 (07:56→12:23)
[2022-03-03] MEDS: LABETALOL 200 MG TAB PO SCH (08:26)
[2022-03-03] MEDS: RIVAROXABAN 2.5 MG TABLET PO SCH (08:26)
[2022-03-03] MEDS: MULTIVITAMINS, THERA 1 EACH TAB PO SCH (08:26)
[2022-03-03] MEDS: THIAMINE 100 MG TAB PO SCH (08:26)
[2022-03-03] MEDS: AZITHROMYCIN 500 MG TAB PO SCH (08:26)
[2022-03-03] MEDS: TAMSULOSIN 0.4 MG CAP.ER.24H PO SCH (08:26)
[2022-03-03] MEDS ORDERED: predniSONE 20 MG TAB PO SCH (09:00)
[2022-03-03] MEDS ORDERED: CEFDINIR 300 MG CAP PO SCH (09:00)
[2022-03-03 11:09] LABS: Glucose,Whole Blood 119 mg/dL (70-110)
[2022-03-03 11:39] VITALS: PULSE 64
--- NOTE | 2022-03-03 13:06 | P.PN ---
Subjective Progress Note Date: 03/03/22 Principal diagnosis: Community acquired pneumonia 76-year-old male patient was hospitalized for pneumonia. Initially presented to his primary care physician and he was given a chest x-ray on outpatient basis on 02/24/2022 which showed a moderate in the right upper lobe along with some areas of bilateral pulmonary infiltration. The patient was given a course of Augmentin. He was not improving. He was hospitalized and he was started on a combination of Rocephin and Zithromax. Currently is on room air oxygen. Is feeling much better. His cough and congestion is also improved. No fever or chills. He has screening for viral agents were negative including influenza, Co vid 19 and RSV. No chest pain. No pleurisy. No hemoptysis. No swelling lower extremities. No altered mentation. Is known to have diabetes mellitus and is also known to have obstructive sleep apnea maintained on a BiPAP at a pressure of 18/14 cm of water. He has degenerative arthritis hypertension and hyperlipidemia. Evaluating this patient today on 03/02/2022 on general medical floor. Patient is sitting comfortably in chair, on room air. He is in no apparent distress, no conversational dyspnea, or accessory muscle use. Patient reports persistent nonproductive cough. Patient denies fevers overnight. X-ray from today shows cardiomegaly with right lung and bibasilar acute infiltrates. Blood cultures show no growth at 48 hours. CBC from today shows mild leukocytosis with a WBC c ount of 12.9, and 9.8, hematocrit 29.3, platelets 384,000. BMP from today was stable with a sodium 136, potassium 4.6, chloride 101, serum CO2 was 18, BUN 29, creatinine 1.1, glucose 274. Patient's glucose has remained fairly elevated overnight. He is receiving IV Solu-Medrol. Glucose is being managed with sliding scale insulin before meals and Levemir at night. Patient is receiving a combination of Rocephin and Zithromax for empiric antibiotic therapy. Patient's vital signs remain hemodynamically stable. I'm reevaluating this patient today on 03/03/2022 and a general medical floor. Patient is sitting up in the chair, he is comfortable, in no acute distress, on room air. Patient denies any fevers overnight. No new chest x-ray to review today. Blood cultures continued to show no growth at 72 hours. Sputum cultures are pending. No new labs to review today. Patient will be discharged on oral antibiotics in the form of Cefdinir. He continues to receive DuoNeb inhalation and oral prednisone taper. Patient's vital signs remain stable. He is telling me that he is ready to go home. Objective - Vital Signs Vital signs: Vital Signs Temp 97.6 F 03/03/22 07:06 Pulse 80 03/03/22 11:05 Resp 18 03/03/22 08:45 BP 121/68 03/03/22 07:06 Pulse Ox 93 L 03/03/22 07:06 FiO2 Intake & Output 03/02/22 03/03/22 03/03/22 18:59 06:59 18:59 Intake Total 120 Balance 120 Weight 99 kg Intake: Oral 120 Other: Voiding Method Toilet Toilet Toilet # Voids 2 2 - Exam Patient is lying in the bed comfortably, no acute distress, awake alert and oriented.. HEENT: Normocephalic. Neck is supple. Pupils reactive. Nostrils clear. Oral cavity is moist. Neck reveals no JVD, carotid bruits, or thyromegaly. CHEST EXAMINATION: Patient's lungs sounds are clear and equal throughout. No rhonchi, wheezes, crackles.. On room air, no accessory muscle use, no conversational dyspnea. CARDIAC: Normal S1, S2 with no gallops. No murmurs ABDOMEN: Soft. Bowel sounds present. Nontender. No organomegaly. No abdominal bruits. Extremities: reveal no edema. No clubbing or cyanosis Neurologically awake, alert, oriented x3 with well-coordinated movements. No focal deficits noted Skin: No rash or skin lesions. Musculoskeletal: No joint swelling or deformity. Normal range of motion. - Labs CBC & Chem 7: 03/02/22 06:25 03/02/22 06:25 Labs: Abnormal Lab Results - Last 24 Hours (Table) 03/02/22 03/02/22 03/03/22 Range/Units 17:27 20:22 11:07 POC Glucose (mg/dL) 304 H 325 H 119 H (70-110) mg/dL Microbiology - Last 24 Hours (Table) 02/28/22 04:30 Blood Culture - Preliminary Blood No Growth after 72 hours 02/28/22 04:10 Blood Culture - Preliminary Blood No Growth after 72 hours 03/02/22 20:14 Sputum Culture - Preliminary Sputum Assessment and Plan Assessment: Pneumonia with another pulmonary infiltrate in the right lung, clinically impro ving. The patient was treated on outpatient basis with Augmentin and subsequently was hospitalized and the patient is currently on a combination of Rocephin and Zithromax. Less short of breath less bronchospastic and wheezy and the patient's oxygenation is adequate for now. Will be discharged on oral cefdinir Dyspnea secondary to above, resolved chronic normocytic anemia. No signs of blood loss. Morbidly obese Obstructive sleep apnea. maintained on the BiPAP at a pressures of 18/14 cm of water at bedtime. Diabetes mellitus Hypertension Osteoarthritis Plan: Patient's medications were reviewed We'll be discharged on oral cefdinir. Continue oral prednisone taper On room air From a pulmonary standpoint, patient is cleared for discharge. I have personally seen and examined the patient, performed the documentation and the assessment and plan as written. Number of minutes spent on the visit: 10. Time with Patient: Less than 30
--- NOTE | 2022-03-03 15:46 | P.DS ---
Providers Date of admission: 02/28/22 03:58 Attending physician: Dennis Barrow Consults: 02/28/22 22:47 Consult Physician Routine Consulting Provider: Mike Griggs Consult Reason/Comments: Pneumonia Do you want consulting provider notified?: Yes, Notify in am Primary care physician: Zeke Burt Hospital Course: Final Diagnosis Worsening shortness of breath secondary to bilateral pneumonia and bronchospasm. improving Reactive bronchospasm Uncontrolled diabetes type 2 with hemoglobin A1C of 12.6. Obstructive sleep apnea on BiPAP Hypertension Hyperlipidemia Glaucoma History of coronary artery disease status post CABG History aortic stenosis status post biprosthetic aortic valve replacement with pig valve in 2014 Daily alcohol use DVT prophylaxis patient is on Xarelto 2.5 mg twice daily at home. GI prophylaxis Obesity BMI 39.9. Full Code Discharge Disposition Patient is stable for discharge home. Has been cleared by pulmonary services. Will discharge on short course of oral ceftin and oral steroid taper. Encourage to continue incentive spirometer. Follow up with primary care and pulmonary on discharge. A1C found to be 12.6 he is discharged on lantus and glipizide recommend close follow up outpatient. Repeat labs in 2 to 3 days. Hospital Course This is a pleasant 76 year old male who follows with Dr. Burt, newly established. He has medical history of hypertension, hyperlipidemia, diabetes mellitus, post CABG and prosthetic aortic valve, alcohol use. He presents with concern for shortness of breath and cough worsening. He had been placed on antibiotics outpatient without improvement of symptoms. He had chest xray on admission showing bilateral pulmonary infiltrates increased compared to recent exam likely representing pneumonia. Negative for influenza A/B, RSV, COVID. P rocalcitonin level found to be 0.22. He did have low grade fever on admission as well. Pulmonary services were consulted for further evaluation. He was placed on antibiotics and also IV steroids and had improvement in symptoms. Transitioned to oral antibiotics and completed 3 days of oral azithromycin. Blood culture remains negative. Sputum culture preliminary negative. Pulmonary cleared for discharge. Blood glucose this admission was elevated up into the 500s, patient states that he was maintained on rybelsus outpatient and was having frequent UTIs so he was taken off the medication. His A1C was found to be 12.6. He was started on levemir and humalog while inpatient and blood glucose has improved to the 100s. Patient will be discharge on daily lantus and glipizide BID while on oral prednisone and recommended to see his primary care for further management. He states he has issues remembering to take his medication more than once a day. 03/03/2022 Patient reports improvement in cough overnight. He has had minimal sputum production. His lungs are clear today. He denies shortness of breath, denies chest pain, no fever or chills. He has been cleared by pulmonary for discharge. He will continue oral ceftin for 5 more days and has been placed on oral steroid taper. White count 12.87 today likely from IV steroids his white count was normal on admission. Sodium 136, potassium 4.6, BUN 28.9, creatinine 1.1, glucose 119 today. Has remained afebrile in the last 48 hours, heart rate 80, blood pressure 110/62, 93% on room air. Patient will be discharged home today. Please see medication reconciliation for a list of current medication. Thank you for allowing us to participate in the care of this patient. The impression and plan of care has been dictated by Vira Hinojosa, Nurse Practitioner as directed. Dr. Dustin MD I have performed a history and physical examination and medical decision making of this patient, discussed the same with the dictator, and agree with the dictators assessment and plan as written, documented as a scribe. Based on total visit time, I have performed more than 50% of this visit. Patient Condition at Discharge: Stable Plan - Discharge Summary Discharge Rx Participant: No New Discharge Prescriptions: New guaiFENesin SYRUP 100MG/5ML [Robitussin] 200 mg PO Q6HR PRN ml PRN Reason: Cough Benzonatate [Tessalon Perles] 100 mg PO TID PRN 7 Days #21 cap PRN Reason: Cough Thiamine [Vitamin B-1] 100 mg PO DAILY #30 tab Insulin Glargine,Hum.rec.anlog [Lantus Solostar Pen] 40 units SQ DAILY #4 each Multivitamins, Thera [Multivitamin (formulary)] 1 each PO DAILY #30 tab Cefdinir [Omnicef] 300 mg PO BID 5 Days #10 cap predniSONE 0 mg PO DIRECTED 12 Days #34 tab glipiZIDE [Glucotrol] 5 mg PO AC-BID 10 Days #20 tab Albuterol Inhaler [Ventolin Hfa Inhaler] 1 - 2 puff INHALATION Q6H PRN #1 each PRN Reason: Shortness Of Breath Or Wheezing Continue Labetalol [Trandate] 200 mg PO BID Enalapril [Vasotec] 20 mg PO BID Aspirin [Adult Low Dose Aspirin EC] 81 mg PO DAILY Travoprost [Travatan Z 0.004%] 1 drop BOTH EYES HS Rosuvastatin Calcium 20 mg PO HS Rivaroxaban [Xarelto] 2.5 mg PO BID Ezetimibe [Zetia] 10 mg PO HS Tamsulosin [Flomax] 0.4 mg PO DAILY Sodium Bicarbonate Tab 650 mg PO DAILY Discontinued Semaglutide [Rybelsus] 14 mg PO DAILY Amoxicillin/Potassium Clav [Amox-Clav 875-125 mg Tablet] 1 tab PO Q12H Discharge Medication List Aspirin [Adult Low Dose Aspirin EC] 81 mg PO DAILY 12/17/15 [History] Enalapril [Vasotec] 20 mg PO BID 12/17/15 [History] Labetalol [Trandate] 200 mg PO BID 12/17/15 [History] Ezetimibe [Zetia] 10 mg PO HS 05/23/20 [History] Rivaroxaban [Xarelto] 2.5 mg PO BID 05/23/20 [History] Travoprost [Travatan Z 0.004%] 1 drop BOTH EYES HS 05/23/20 [History] Rosuvastatin Calcium 20 mg PO HS 02/28/22 [History] Sodium Bicarbonate Tab 650 mg PO DAILY 02/28/22 [History] Tamsulosin [Flomax] 0.4 mg PO DAILY 02/28/22 [History] Albuterol Inhaler [Ventolin Hfa Inhaler] 1 - 2 puff INHALATION Q6H PRN #1 each 03/03/22 [Rx] Benzonatate [Tessalon Perles] 100 mg PO TID PRN 7 Days #21 cap 03/03/22 [Rx] Cefdinir [Omnicef] 300 mg PO BID 5 Days #10 cap 03/03/22 [Rx] Insulin Glargine,Hum.rec.anlog [Lantus Solostar Pen] 40 units SQ DAILY #4 each 03/03/22 [Rx] Multivitamins, Thera [Multivitamin (formulary)] 1 each PO DAILY #30 tab 03/03/22 [Rx] Thiamine [Vitamin B-1] 100 mg PO DAILY #30 tab 03/03/22 [Rx] glipiZIDE [Glucotrol] 5 mg PO AC-BID 10 Days #20 tab 03/03/22 [Rx] guaiFENesin SYRUP 100MG/5ML [Robitussin] 200 mg PO Q6HR PRN ml 03/03/22 [Rx] predniSONE 0 mg PO DIRECTED 12 Days #34 tab 03/03/22 [Rx] Follow up Appointment(s)/Referral(s): Zeke Burt MD [Primary Care Provider] - 03/09/22 11:40 am Derick Youngblood MD [STAFF PHYSICIAN] - 03/19/22 2:15 pm Ambulatory/Diagnostic Orders: Basic Metabolic Panel [LAB.AMB] Time Frame: 3 Days, Location: None Selected Complete Blood Count w/diff [LAB.AMB] Time Frame: 3 Days, Location: None Selected Patient Instructions/Handouts: Pneumonia (DC), Type 2 Diabetes Management for Adults (GEN) Activity/Diet/Wound Care/Special Instructions: Continue on Glipizide twice a day for blood glucose control while on prednisone Taper Continue oral antibiotics on discharge Continue using incentive spirometer 10 times an hour while awake activity limited until seen by Diabetic Diet as tolerated Discharge Disposition: HOME SELF-CARE
== END 2022-03-03 14:32 | disposition home or self-care (01) | DRG 195 ==
LOC: EC 23:48 → 5NMEDONC 02-28 03:58
PROVIDERS: ADMIT Hospitalist; ATTEND Hospitalist
DX: J18.9 Pneumonia, unspecified organism (principal); G47.33 Obstructive sleep apnea (adult) (pediatric); D64.9 Anemia, unspecified; E66.01 Morbid (severe) obesity due to excess calories; Z68.39 Body mass index [BMI] 39.0-39.9, adult; E78.5 Hyperlipidemia, unspecified; H40.9 Unspecified glaucoma; I11.9 Hypertensive heart disease without heart failure; E11.65 Type 2 diabetes mellitus with hyperglycemia; M19.90 Unspecified osteoarthritis, unspecified site; Z20.822 Contact with and (suspected) exposure to COVID-19; I25.10 Atherosclerotic heart disease of native coronary artery without angina pectoris; Z95.1 Presence of aortocoronary bypass graft; Z95.2 Presence of prosthetic heart valve; Z79.01 Long term (current) use of anticoagulants; Z79.82 Long term (current) use of aspirin; Z79.899 Other long term (current) drug therapy; Z87.440 Personal history of urinary (tract) infections
CPT/HCPCS: 36415; 71045; 71046; 80048; 80053; 83036; 83735; 84145; 85025; 87040; 87070; 87205; 87636; 94640; 96365; 96366; 96375; 99285

== ENCOUNTER → 2023-08-10 | Outpatient (CLI) | payer MEDICARE ==
--- NOTE | 2023-08-11 13:54 | US ---
EXAMINATION TYPE: US Aorta Screening DATE OF EXAM: 08/10/2023 COMPARISON: Multiple CTs CLINICAL INDICATION: Male, 77 years old with history of Z13.6 ENCOUNTER FOR SCREENING FOR CARDIOVASCU LAR D; Aorta screening, recent heart surgery with discontinuation of blood pressure medications. TECHNIQUE: Multiple sonographic images of the abdominal aorta are obtained. FINDINGS: EXAM MEASUREMENTS: Abdominal Aorta: Proximal: 2.0 x 1.9 cm Mid: 1.5 x 2.0 mc Distal: 1.5 x 1.0 cm Bifurcation: Right Iliac: 0.8 x 1.0 cm Left Iliac: 1.0 x 1.1 cm Some limitation due to bowel gas. HOSPITALITY MANAGER NOTES: IMPRESSION: No aneurysmal dilatation abdominal aorta screening ultrasound
== END | disposition home or self-care (01) ==
LOC: RADUSWWP 09:11
PROVIDERS: ATTEND Family Medicine
DX: Z13.6 Encounter for screening for cardiovascular disorders (principal)
CPT/HCPCS: 76706

== ENCOUNTER 2023-10-24 08:06 | Emergency (ER) | payer MEDICARE ==
[2023-10-24 08:15] VITALS: TEMP 98.1
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
[2023-10-24 11:34] VITALS: BP 152/83; PULSE 72; RESP 18
== END 2023-10-24 11:34 | disposition home or self-care (01) ==
LOC: EC 08:06
DX: S80.212A Abrasion, left knee, initial encounter (principal); S50.312A Abrasion of left elbow, initial encounter; M25.552 Pain in left hip; M54.9 Dorsalgia, unspecified; Z96.651 Presence of right artificial knee joint; Z98.890 Other specified postprocedural states; V03.10XA Pedestrian on foot injured in collision with car, pick-up truck or van in traffic accident, initial encounter; Y93.01 Activity, walking, marching and hiking
CPT/HCPCS: 70450; 73502; 99284

== ENCOUNTER 2024-05-17 07:20 | Day surgery (SDC) | payer MEDICARE ==
[2024-05-16 11:44] VITALS: BMI 37.8
[2024-05-17] MEDS ORDERED: LIDOCAINE 1% (10MG/ML) FOR IV START INTRADERMA PRN (07:42)
[2024-05-17] MEDS ORDERED: LACTATED RINGERS 1,000 ML IV SCH (07:42)
[2024-05-17] MEDS: LACTATED RINGERS 1,000 ML IV ONE (07:50)
[2024-05-17 08:06] LABS: Glucose,Whole Blood 129 mg/dL (70-110)
[2024-05-17 08:07] VITALS: RESP 18; TEMP 98
[2024-05-17] MEDS ORDERED: PROPOFOL 10 MG/ML 20 ML VIAL IV ONE (08:17)
--- NOTE | 2024-05-17 08:36 | P.PCN ---
Date of Procedure: 05/17/24 Procedure(s) Performed: BRIEF HISTORY: Patient is a 78-year-old pleasant white male scheduled for an elective colonoscopy as a part of screening for by history of colon polyps. Last colonoscopy was 3 years ago and was noted to have a tubular adenoma. PROCEDURE PERFORMED: Colonoscopy. PREOPERATIVE DIAGNOSIS: Screening for history of colon polyps. IV sedation per Anesthesia. PROCEDURE: After informed consent was obtained, the patient, was brought into the endoscopy unit. IV sedation was administered by Anesthesia under continuous monitoring. Digital rectal examination was normal. Initially the Olympus CF-160 flexible video colonoscope was then inserted in the rectum, gradually advanced into the cecum without any difficulty. Careful examination was performed as the scope was gradually being withdrawn. Ileocecal valve and the appendiceal orifice were visualized and appeared normal. Prep was excellent. Mucosa of the cecum, ascending colon, transverse colon, descending colon, sigmoid colon, and rectum appeared normal. Retroflexion was performed in the rectum and no lesions were seen. Scattered sigmoid diverticulosis. The patient tolerated the procedure well. IMPRESSION: Normal-appearing colon from rectum to cecum with no evidence of colorectal neoplasia Scattered sigmoid diverticulosis. RECOMMENDATIONS: Findings of this examination were discussed with the patient as well as his family.. He was advised to have repeat screening colonoscopy in 5 years. Continue with a high-fiber diet and fiber supplements as needed.
[2024-05-17 08:46] VITALS: PULSE 82
[2024-05-17 08:59] VITALS: BP 149/80
== END 2024-05-17 09:14 | disposition home or self-care (01) ==
LOC: ORWHC2ENDO 07:20
PROVIDERS: ATTEND Internal Medicine Gastroenterology
DX: Z12.11 Encounter for screening for malignant neoplasm of colon (principal); K57.30 Diverticulosis of large intestine without perforation or abscess without bleeding; I25.10 Atherosclerotic heart disease of native coronary artery without angina pectoris; I10 Essential (primary) hypertension; E78.5 Hyperlipidemia, unspecified; E11.9 Type 2 diabetes mellitus without complications; G47.33 Obstructive sleep apnea (adult) (pediatric); H40.9 Unspecified glaucoma; M19.90 Unspecified osteoarthritis, unspecified site; Z99.89 Dependence on other enabling machines and devices; Z95.1 Presence of aortocoronary bypass graft; Z95.2 Presence of prosthetic heart valve; Z86.0100 Personal history of colon polyps, unspecified; Z79.84 Long term (current) use of oral hypoglycemic drugs; Z79.82 Long term (current) use of aspirin; Z79.899 Other long term (current) drug therapy
CPT/HCPCS: J2704; G0121